=== PATIENT | female | born 1945 | race Caucasian/White ===

== ENCOUNTER 2023-08-31 21:16 | Emergency (ER) | payer OTHER, SELFPAY ==
[2023-08-31] VITALS (21 sets, daily range): BP systolic 174–220; BP diastolic 90–124; PULSE 77–90; RESP 12–21; TEMP 36.4; O2SAT 84–98; BMI 26.3
--- NOTE | 2023-08-31 22:04 | ECG_ITS ---
[facility] Test Date: 2023-08-31 Pat Name: HIRO SEGOVIA Department: Room: - Gender: Female [employer]: : 1945 Requested By: MARGARETTE DUARTE Order Number: [id number] Reading MD: MANINDER HORNER Measurements Intervals [place] Rate: 78 P: 56 UT: 158 QRS: 5 QRSD: 82 T: 39 QT: 372 QTc: 405 Interpretive Statements 1100 Sinus rhythm 5222 Moderate voltage criteria for LVH, may be normal variant 9130 borderline ECG No previous ECG available for comparison Electronically Signed On 09-01-2023 6:44:25 EST by MANINDER HORNER
--- NOTE | 2023-08-31 22:18 | ED_ITS ---
HPI - General Adult General Chief complaint: Headache Stated complaint: Headache Blood pressure high Time Seen by Provider: 08/31/23 22:12 Source: patient Mode of arrival: walk-in History of Present Illness HPI narrative: presents complaining of headache that started tonight. History of HTN. BP elevated tonight. also has history of migraines. States she did have ocular. migraine symptoms earlier tonight but these have resolved. Her headache is at the right bahai and radiates around to the right side of her head. Same location as past migraines. complains of nausea. No extremity weakness or paresthesia. No fever or neck pain Related Data Allergies Allergy/AdvReac Type Severity Reaction Status Date / Time No Known Drug Allergies Allergy Verified 08/31/23 21:32 Review of Systems ROS Status of ROS 10 or more systems reviewed and unremark able except as noted in history and below [facility] Social History Smoking status: Never smoker Exam Constitutional Vital Signs, click to edit/add: Last Vital Signs Temp 97.6 F 08/31/23 21:32 Pulse 87 09/01/23 01:30 Resp 20 09/01/23 01:30 BP 169/93 H 09/01/23 01:42 Pulse Ox 98 08/31/23 22:27 O2 Del Method Room Air 08/31/23 22:45 Common normals: no apparent distress, average body habitus, oriented x3, no limitations, healthy appearing, alert and well nourished [facility] Common normals: normocephalic and head/scalp atraumatic Eye Common normals: PERRL, EOMs intact bilaterally and conjunctivae normal Respiratory Common normals: normal respiratory effort, no retractions and no use of accessory muscles Cardio Common normals: regular rate, regular rhythm, S1 normal heart sound and S2 normal heart sound GI Common normals: Normal to inspection, nondistended, normoactive bowel sounds pre sent, soft to palpation and non-tender Extremity Common normals: normal to inspection and full ROM Neuro Common normals: oriented x3, moves all extremities and no focal motor deficits Psych Appearance: grossly normal Course Vital Signs Vital signs: Vital Signs Temperature 97.6 F 08/31/23 21:32 Pulse Rate 80 08/31/23 21:32 Respiratory Rate 18 08/31/23 21:32 Blood Pressure 220/100 H 08/31/23 21:32 Pulse Oximetry 97 08/31/23 21:32 Oxygen Delivery Method Room Air 08/31/23 21:32 Temperature 97.6 F 08/31/23 21:32 Pulse Rate 87 09/01/23 01:30 Respiratory Rate 20 09/01/23 01:30 Blood Pressure 169/93 H 09/01/23 01:42 Pulse Oximetry 98 08/31/23 22:27 Oxygen Delivery Method Room Air 08/31/23 22:45 Medical Decision Making MDM Narrative Medical decision making narrative: patient presents with hypertension and headache. History of migraines. Did not take her BP medication. Both treated in the ED and she is now feeling better. Discharged home in improved condition Lab Data Labs: Lab Results 08/31/23 Range/Units 22:40 WBC 9.4 (4.0-11.0) 10^3/uL RBC 3.96 L (4.20-5.40) 10^6/uL Hgb 12.6 (12.0-16.0) g/dL Hct 37.6 (36.0-48.0) % MCV 94.9 (81.0-99.0) fL MCH 31.8 (26.7-34.0) pg MCHC 33.5 (29.9-35.2) g/dL RDW 12.9 (11.0-15.0) % Plt Count 273 (150-450) 10^3/uL MPV 9.3 L (9.5-13.5) fL Neut % (Auto) 69.6 (43.0-75.0) % Lymph % (Auto) 17.4 L (20.5-60.0) % [place] % (Auto) 8.4 (1.7-12.0) % Eos % (Auto) 3.7 (0.9-7.0) % Baso % (Auto) 0.5 (0.2-2.0) % Neut # (Auto) 6.5 (1.4-6.5) 10^3/uL Lymph # (Auto) 1.6 (1.2-3.8) 10^3/uL [place] # (Auto) 0.8 (0.3-0.8) 10^3/uL Eos # (Auto) 0.4 (0.0-0.7) 10^3/uL Baso # (Auto) 0.1 (0.0-0.1) 10^3/uL Abs Immat Gran (auto) 0.04 H (0.00-0.03) 10^3/uL Imm/Tot Granulo (auto) 0.4 (0.0-0.5) % ESR 52 H (<=30) mm/hr Sodium 139 (136-145) mmol/L Potassium 3.5 (3.5-5.1) mmol/L Chloride 103 (98-107) mmol/L Carbon Dioxide 23.3 (21.0-32.0) mmol/L Anion Gap 16.2 BUN 16.0 (7.0-18.0) mg/dL Creatinine 0.79 (0.55-1.02) mg/dL Est GFR ( Amer) >60 (>=60) Est GFR (Non-Af Amer) >60 (>=60) BUN/Creatinine Ratio 20.3 Glucose 162 H (74-106) mg/dL Calcium 9.2 (8.5-10.1) mg/dL Discharge Plan Discharge Chief Complaint: Headache Clinical Impression: Hypertensive urgency, Migraine Patient Disposition: Home, Self-Care Instructions: Migraine Headache (ED), Hypertensive Crisis (ED) Additional Instructions: take your regular blood pressure medication when you get home. Follow up with your doctor in the next 1-2 days Stand Alone Forms: Portal Instructions Referrals: MARGARETTE DUARTE [Primary Care Provider] - 1 week
[2023-08-31] MEDS: CLONIDINE HCL 0.1 MG TABLET 0.100000000000000006 MG PO (22:46)
[2023-08-31] MEDS: METOCLOPRAMIDE HCL 10 MG/2 ML VIAL IVP (22:47)
[2023-08-31] MEDS: MAGNESIUM SULFATE IN WATER 2 GM/50 ML PREMIX IV (22:47)
[2023-08-31] MEDS: METHYLPREDNISOLONE SOD SUCC PF 125 MG/2 ML VIAL IVP (22:47)
[2023-08-31 22:52] LABS: Basophils Absolute Auto 0.1 10^3/uL (0.0-0.1); Basophils Percent Auto 0.5 % (0.2-2.0); Eosinophils Absolute Auto 0.4 10^3/uL (0.0-0.7); Eosinophils Percent Auto 3.7 % (0.9-7.0); Hematocrit 37.6 % (36.0-48.0); Hemoglobin 12.6 g/dL (12.0-16.0); Immature Granulocytes Abs Auto 0.04 10^3/uL (0.00-0.03); Immature Granulocytes Pct Auto 0.4 % (0.0-0.5); Lymphocytes Absolute Auto 1.6 10^3/uL (1.2-3.8); Lymphocytes Percent Auto 17.4 % (20.5-60.0); Mean Corpuscular HGB Conc 33.5 g/dL (29.9-35.2); Mean Corpuscular Hemoglobin 31.8 pg (26.7-34.0); Mean Corpuscular Volume 94.9 fL (81.0-99.0); Mean Platelet Volume 9.3 fL (9.5-13.5); Monocytes Absolute Auto 0.8 10^3/uL (0.3-0.8); Monocytes Percent Auto 8.4 % (1.7-12.0); Neutrophils Absolute Auto 6.5 10^3/uL (1.4-6.5); Neutrophils Percent Auto 69.6 % (43.0-75.0); Platelet Count 273 10^3/uL (150-450); Red Blood Count 3.96 10^6/uL (4.20-5.40); Red Cell Distribution Width 12.9 % (11.0-15.0); White Blood Count 9.4 10^3/uL (4.0-11.0)
[2023-08-31 23:03] LABS: Anion Gap 16.2; BUN Creatinine Ratio 20.3; Calcium 9.2 mg/dL (8.5-10.1); Carbon Dioxide 23.3 mmol/L (21.0-32.0); Chloride 103 mmol/L (98-107); Estimated GFR (African America >60 (>=60); Estimated GFR (Non-African Ame >60 (>=60); Glucose 162 mg/dL (74-106); Potassium 3.5 mmol/L (3.5-5.1); Sodium 139 mmol/L (136-145)
[2023-08-31 23:38] LABS: Erythrocyte Sedimentation Rate 52 mm/hr (<=30)
[2023-09-01] VITALS (16 sets, daily range): BP systolic 168–188; BP diastolic 81–102; PULSE 82–91; RESP 10–23
[2023-09-01] MEDS: CLONIDINE HCL 0.1 MG TABLET 0.100000000000000006 MG PO (00:25)
--- NOTE | 2023-09-01 02:06 | ED.GENADUL1 ---
HPI - General Adult General Chief complaint: Headache Stated complaint: Headache Blood pressure high Time Seen by Provider: 08/31/23 22:12 Source: patient Mode of arrival: walk-in Related Data Allergies Allergy/AdvReac Type Severity Reaction Status Date / Time No Known Drug Allergies Allergy Verified 08/31/23 21:32 PFSH PFS Social History Smoking status: Never smoker Exam Constitutional Vital Signs, click to edit/add: Last Vital Signs Temp 97.6 F 08/31/23 21:32 Pulse 87 09/01/23 01:30 Resp 20 09/01/23 01:30 BP 169/93 H 09/01/23 01:42 Pulse Ox 98 08/31/23 22:27 O2 Del Method Room Air 08/31/23 22:45 Course Vital Signs Vital signs: Vital Signs Temperature 97.6 F 08/31/23 21:32 Pulse Rate 80 08/31/23 21:32 Respiratory Rate 18 08/31/23 21:32 Blood Pressure 220/100 H 08/31/23 21:32 Pulse Oximetry 97 08/31/23 21:32 Oxygen Delivery Method Room Air 08/31/23 21:32 Temperature 97.6 F 08/31/23 21:32 Pulse Rate 87 09/01/23 01:30 Respiratory Rate 20 09/01/23 01:30 Blood Pressure 169/93 H 09/01/23 01:42 Pulse Oximetry 98 08/31/23 22:27 Oxygen Delivery Method Room Air 08/31/23 22:45 Medical Decision Making Lab Data Labs: Lab Results 08/31/23 Range/Units 22:40 WBC 9.4 (4.0-11.0) 10^3/uL RBC 3.96 L (4.20-5.40) 10^6/uL Hgb 12.6 (12.0-16.0) g/dL Hct 37.6 (36.0-48.0) % MCV 94.9 (81.0-99.0) fL MCH 31.8 (26.7-34.0) pg MCHC 33.5 (29.9-35.2) g/dL RDW 12.9 (11.0-15.0) % Plt Count 273 (150-450) 10^3/uL MPV 9.3 L (9.5-13.5) fL Neut % (Auto) 69.6 (43.0-75.0) % Lymph % (Auto) 17.4 L (20.5-60.0) % [place] % (Auto) 8.4 (1.7-12.0) % Eos % (Auto) 3.7 (0.9-7.0) % Baso % (Auto) 0.5 (0.2-2.0) % Neut # (Auto) 6.5 (1.4-6.5) 10^3/uL Lymph # (Auto) 1.6 (1.2-3.8) 10^3/uL [place] # (Auto) 0.8 (0.3-0.8) 10^3/uL Eos # (Auto) 0.4 (0.0-0.7) 10^3/uL Baso # (Auto) 0.1 (0.0-0.1) 10^3/uL Abs Immat Gran (auto) 0.04 H (0.00-0.03) 10^3/uL Imm/Tot Granulo (auto) 0.4 (0.0-0.5) % ESR 52 H (<=30) mm/hr Sodium 139 (136-145) mmol/L Potassium 3.5 (3.5-5.1) mmol/L Chloride 103 (98-107) mmol/L Carbon Dioxide 23.3 (21.0-32.0) mmol/L Anion Gap 16.2 BUN 16.0 (7.0-18.0) mg/dL Creatinine 0.79 (0.55-1.02) mg/dL Est GFR ( Amer) >60 (>=60) Est GFR (Non-Af Amer) >60 (>=60) BUN/Creatinine Ratio 20.3 Glucose 162 H (74-106) mg/dL Calcium 9.2 (8.5-10.1) mg/dL Discharge Plan Discharge Chief Complaint: Headache Clinical Impression: Hypertensive urgency, Migraine Patient Disposition: Home, Self-Care Instructions: Migraine Headache (ED), Hypertensive Crisis (ED) Additional Instructions: take your regular blood pressure medication when you get home. Follow up with your doctor in the next 1-2 days Stand Alone Forms: Portal Instructions Referrals: MARGARETTE DUARTE [Primary Care Provider] - 1 week Discharge Date/Time: 09/01/23 02:09
== END 2023-09-01 02:09 | disposition home or self-care (01) ==
PROVIDERS: Emergency Provider Internal Medicine; PCP Family Medicine
DX: I16.0 Hypertensive urgency (principal); G43.909 Migraine, unspecified, not intractable, without status migrainosus
CPT/HCPCS: 36415; 80048; 85025; 85652; 93005; 96365; 96375; 99284; J2930

== ENCOUNTER 2024-03-27 07:50 | Observation (INO) | payer MEDICARE, SELFPAY ==
[2024-03-27] VITALS (21 sets, daily range): BP systolic 157–228; BP diastolic 78–135; PULSE 88–132; TEMP 36.4; O2SAT 94–97; BMI 26.1; BMI 26.5
--- OUTSIDE RECORDS SUMMARY | 2024-03-27 08:03 | XMS_ITS | CCD ---
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 Name Role Phone BORIS CORTEZ Unavailable Unavailable MARGARETTE DUARTE Unavailable Unavailable Margarette Duarte Unavailable Unavailable DR MARGARETTE DUARTE Consulting Unavailable GERALD, DR PFEIFFER Attending Unavailable DR MARGARETTE DUARTE Admitting Unavailable Margarette Duarte Unavailable Bernarda Watson Unavailable DO Margarette Duarte Primary Care Provider DO Margarette Duarte Attending Provider [phone] DO Margarette Duarte Primary Care Provider DO Margarette Duarte Attending Provider DO Margarette Duarte Primary Care Provider [phone] DO Margarette Duarte Attending Provider DO Margarette Duarte Primary Care Provider DO Margarette Duarte Attending Provider DO Margaretet Duarte Primary Care Provider DENNISE Garrett Attending Provider [phone] Margarette Duarte Primary Care Unavailable Margarette Duarte Attending Unavailable Margarette Duarte Admitting Unavailable Johana Garrett Admitting Unavailable Johana Garrett Attending Unavailable Margarette Duarte Primary Care Unavailable Allergies Allergy Classification Reported Allergen(s) Allergy Type Date of Onset Reaction(s) Facility (1 source) moxifloxacin Drug Allergy 07-13-19 20 [facility] (1 source) Penicillin Drug Allergy 02-20-20 14 [facility] (1 source) Misc-Food; Translations: [Misc-Food] Food allergy (disorder) 07-13-19 20 [facility] (19 sources) moxifloxacin Drug Allergy 11-23-19 24 Unknown, Unknown Reaction [facility] (16 sources) Seafood Propensity to adverse reactions Unknown [facility] Other (6 sources) Penicillins; Translations: [Penicillins] Allergy to substance 09-18-19 Unknown Reaction [facility] (8 sources) Shellfish; Translations: [shellfish derived] Allergy to substance 09-18-19 Unknown Reaction [facility] (1 source) moxifloxacin Drug Allergy 03-20-20 [facility] Medications Current Medications Medication Drug Class(es) Dates Sig (Normalized) Sig (Original) albuterol 0.83 mg/ml inhalation solution (20 sources) beta2-Adrenergic Agonist Start: 11-23-2023 take 3 mL by inhalation every six hours as needed Albuterol Sulfate Active 2.5 MG INHALATION Every 6 hours November 23, 2023 12:00am FreeTextSi ml Inhalation q6 hours prn; Note: Source Status: Takingprn; Provider: Gerald Morrison Start: 06-01-2016 Albuterol Sulf ate (2.5 MG/3ML) 0.083% 3 ml Inhalation q6 hours prn prn May, Active Start: 06-01-2016 Albuterol Sulf ate (2.5 MG/3ML) 0.083% 3 ml Inhalation q6 hours prn prn May, Active Start: 06-01-2016 Start: 10-14-2011 End: 11-23-2023 Albuterol Sulfate (Proair Hf a) 90 mcg/actuation Hfa Aerosol Inhaler Discontinued 90 MCG INHALATION Daily September 17, 2017 12:00am November 23, 2023 2:10pm Start: 10-14-2011 ProAir HFA 108 (90 Base) MCG/ACT 2 inhalations Inhalation every 4 hrs prn Oct, Active Ascorbate Sodium (Vit C)(Bulk) (3 sources) Start: 11-23-2023 Ascorbate Sodi um (Vit C)(Bulk) Active EACH MISCELLANE .daiy November 23, 2023 12:00am betamethasone 1 mg/ml topical cream (13 sources) Corticosteroid Start: 11-23-2023 End: 11-23-2023 Betamethasone Valerate Active APPLIC TOPICAL November 23, 2023 2:28pm 1 application Externally sparingly once a day as directed Start: 09-17-2022 Betamethasone Valerate 0.1 % 1 application Externally sparingly once a day as directed for 90 days Sep, Active Start: 09-17-2022 Betamethasone Valerate 0.1 % 1 application Externally sparingly once a day as directed for 90 days Sep, Active Calcium 600 + D 600-200 MG-UNIT (16 sources) Start: 05-26-2016 take 1 tablet by mouth twice daily as needed Calcium 600 + D 600-200 MG-UNIT 1 tablet Orally bid prn May, Active Start: 05-26-2016 take 1 tablet by jaspreet th twice daily Calcium 600 + D 600-200 MG-UNIT 1 tablet Orally bid May, Not-Taking Start: 05-26-2016 Start: 05-26-2016 take 1 tablet by jaspreet th twice daily Calcium 600 + D 600-200 MG-UNIT 1 tablet Orally bid May, Active cetirizine hydrochloride 10 mg oral tablet (10 sources) Histamine-1 Receptor Antagonist Start: 11-23-2023 take 1 tablet by mouth once daily Cetirizine (Zyrtec) 10 mg tablet Active 10 MG PO Daily November 23, 2023 12:00am ZyrTEC Active clobetasol propionate 0.5 mg/ml topical cream (10 sources) Corticosteroid Start: 11-23-2023 Clobetasol Act christi TOPICAL November 23, 2023 1:56pm Start: 09-16-2017 End: 11-23-2023 Clobetasol Discontinued Duy h 2017 12:00am November 23, 2023 2:10pm Coconut Oil (16 sources) Coconut Oil as d irected Active Emollient Combination No.61 (Coconut Oil Cream) cream (3 sources) Start: 11-23-2023 Emollient Comb ination No.61 (Coconut Oil Cream) cream Active APPLIC TOPICAL November 23, 2023 12:00am fluocinonide 0.0005 mg/mg topical ointment (3 sources) Corticosteroid Start: 11-23-2023 Fluocinonide A ctive APPLIC TOPICAL November 23, 2023 12:00am fluticasone propionate 0.05 mg/actuat metered dose nasal spray (20 sources) Corticosteroid Start: 11-23-2023 Fluticasone Pr opionate Active 2 SPRAY INTRANASAL Daily November 23, 2023 2:27pm Start: 11-23-2023 End: 11-23-2023 take 2 spray(s) nasal route once daily as needed Fluticasone Propionate Discontinued INTRANASAL November 23, 2023 12:00am November 23, 2023 2:27pm FreeTextSig: USE 2 SPRAYS IN EACH NOSTRIL ONCE DAILY NEEDED; Note: Source Status: Refill; Refills: 3; Qty: 48 Gram; Provider: Gerald Morrison Start: 09-17-2017 End: 11-23-2023 take 50 ug by inhalation once daily Fluticasone Propionate Discontinued 50 MCG INHALATION Daily September 17, 2017 12:00am November 23, 2023 1:57pm take 2 spray(s) nasa l route once daily as needed Fluticasone Propionate 50 MCG/ACT USE 2 SPRAYS IN EACH NOSTRIL ONCE DAILY NEEDED for 90 days Active take 2 spray(s) nasa l route once daily as needed Fluticasone Propionate 50 MCG/ACT USE 2 SPRAYS IN EACH NOSTRIL ONCE DAILY NEEDED Active levothyroxine sodium 0.088 mg oral tablet (20 sources) l-Thyroxine Start: 11-26-2023 take 88 ug by mouth once daily in the morning Levothyroxine Active 88 MCG PO Daily November 26, 2023 12:00am take first thing in the morning on an empty stomach, do not eat or drink for 30-45 min after taking Start: 11-23-2023 End: 11-26-2023 take 100 ug by mouth once daily in the morning Levothyroxine Discontinued 100 MCG PO Every morning November 23, 2023 2:25pm November 26, 2023 9:44am Start: 08-23-2023 End: 11-23-2023 take 1 tablet by mouth once daily in the morning Levothyroxine Discontinued 0 .ROUTE .COMPLEX August 23, 2023 11:31am November 23, 2023 2:26pm TAKE 1 TABLET BY MOUTH DAILY IN THE MORNING ON AN EMPTY STOMACH Start: 08-23-2023 End: 08-23-2023 take 1 tablet by mouth once daily in the morning Levothyroxine Discontinued 1 TAB PO Daily before breakfast August 23, 2023 1:00am August 23, 2023 11:31am FreeTextSig: TAKE 1 TABLET DAILY IN THE MORNING ON AN EMPTY STOMACH; Note: Source Status: Taking; Provider: Marco Pittman Start: 08-30-2018 take 1 tablet by jaspreet th once daily in the morning Synthroid 100 MCG 1 tablet on an empty stomach in the morning Orally Once a day Aug, Active Start: 09-17-2017 End: 08-23-2023 take 75 ug by mouth once daily Levothyroxine Discontin ued 75 MCG PO Daily September 17, 2017 12:00am August 23, 2023 11:30am Start: 09-16-2017 End: 09-17-2017 take 1 tablet by mouth once daily Levothyroxine (Synthroid) 88 mcg tablet Discontinued 88 MCG PO Daily September 16, 2017 12:00am September 17, 2017 4:32am Levothyroxine So dium 100 MCG TAKE 1 TABLET DAILY IN THE MORNING ON AN EMPTY STOMACH Active Levothyroxine So dium 112 MCG TAKE 1 TABLET DAILY IN THE MORNING ON AN EMPTY STOMACH for 90 days Active loratadine 10 mg oral tablet (16 sources) Start: 06-06-2019 take 1 tablet by mouth every twenty-four hours Claritin 10 MG 1 tablet Orally Once a day Jun, Active losartan potassium 50 mg oral tablet (20 sources) Angiotensin 2 Receptor Cole Start: 02-28-2024 take 1 tablet by mouth once daily Losartan Active 0 .ROUTE .COMPLEX 90 February 28, 2024 9:57am TAKE 1 TABLET BY MOUTH DAILY Start: 11-23-2023 End: 02-28-2024 take 50 mg by mouth once daily Losartan Discontinued 5 0 MG PO Daily November 23, 2023 12:00am February 28, 2024 9:57am Start: 09-16-2017 End: 11-23-2023 take 100 mg by mouth once daily Losartan Discontinued 100 MG PO Daily September 16, 2017 12:00am November 23, 2023 1:54pm take 1 tablet by jaspreet th every twenty-four hours Losartan Potassium 50 MG 1 tablet by mouth qd for 90 days Active take 0.5 tablet by m outh once daily Losartan Potassium 100 mg 1/2 tablet by mouth qd for 90 days Active Magnesium (10 sources) Start: 11-23-2023 Magnesium Acti ve PO November 23, 2023 12:00am Magnesium Active mecobalamin (3 sources) Start: 11-23-2023 take 5000 ug by mouth once daily Mecobalamin (Vitamin B12) Active 5000 MCG PO Daily November 23, 2023 12:00am meloxicam 7.5 mg oral tablet (1 source) Nonsteroidal Anti-inflammatory Drug Start: 03-20-2024 take 7.5 mg by mouth once daily Meloxicam Active 7.5 MG PO Daily March 20, 2024 12:00am Miacalcin 200 UNIT/ACT (16 sources) Start: 05-26-2016 Miacalcin 200 UNIT/ACT 1 spray in one nostril Nasally once a day, alternating nostrils prn May, Active Start: 05-26-2016 Miacalcin 200 UNIT/ACT 1 spray in one nostril Nasally once a day, alternating nostrils May, Not-Taking Start: 05-26-2016 Miacalcin 200 UNIT/ACT 1 spray in one nostril Nasally once a day, alternating nostrils May, Active Start: 05-26-2016 Start: 05-26-2016 Miacalcin 200 UNIT/ACT 1 spray in one nostril Nasally once a day, alternating nostrils for 90 days May, Active mushroom coffee (3 sources) Start: 11-23-2023 mushroom coffe e Active PO November 23, 2023 12:00am NAC (7 sources) NAC Active Nebulizer/Tubing/Mouthpiece (16 sources) Start: 10-24-2019 Start: 10-24-2019 Nebulizer/Tubi ng/Mouthpiece Oct, Active omega d3 mk-7 (3 sources) Start: 11-23-2023 omega d3 mk-7 Active PO November 23, 2023 12:00am ProAir HFA 108 (90 Base) MCG/ACT (8 sources) Start: 10-14-2011 ProAir HFA 108 (90 Base) MCG/ACT 2 inhalations Inhalation every 4 hrs prn for 90 days Oct, Active Start: 10-14-2011 ProAir HFA 108 (90 Base) MCG/ACT 2 inhalations Inhalation every 4 hrs prn prn Oct, Active Start: 10-14-2011 ProAir HFA 108 (90 Base) MCG/ACT 2 inhalations Inhalation every 4 hrs prn Oct, Active probiotic (16 sources) probiotic as dir ected Active quercetin with bromelain (3 sources) Start: 11-23-2023 quercetin with bromelain Active PO November 23, 2023 12:00am Sodium Ascorbate (7 sources) Sodium Ascorbate Active triamcinolone acetonide 1 mg/ml topical cream (20 sources) Corticosteroid Start: 03-03-2024 Triamcinolone Acetonide Active 1 APPLIC TOPICAL Twice daily 80 March 03, 2024 12:00am apply sparingly to affected area Start: 09-17-2017 End: 11-23-2023 Triamcinolone Acetonide Disc ontinued 0.1 PERCENT TOPICAL Daily September 17, 2017 12:00am November 23, 2023 2:03pm Triamcinolone Ac etonide 0.1 % APPLY 1 APPLICATION SPARINGLY TO AFFECTED AREA TWICE A DAY EXTERNALLY 3- 80 gram tubes/ 90 day supply Not-Taking/PRN Triamcinolone Ac etonide 0.1 % APPLY 1 APPLICATION SPARINGLY TO AFFECTED AREA TWICE A DAY EXTERNALLY 3- 80 gram tubes/ 90 day supply Not-Taking vitamin B12 (7 sources) Vitamin B12 Vitamin B 12 Act christi Zinc (10 sources) Start: 11-23-2023 Zinc Active PO November 23, 2023 12:00am Zinc Active Completed/Discontinued Medications Medication Drug Class(es) Dates Sig (Normalized) Sig (Original) acetaminophen 325 mg / HYDROcodone bitartrate 5 mg oral tablet (7 sources) Opioid Agonist Start: 09-17-2017 End: 11-23-2023 take 5-325 mg by mouth every four to six hours Hydrocodone-Acetami nophen Discontinued 5 - 325 MG PO EVERY 4-6 HOURS September 17, 2017 12:00am November 23, 2023 1:57pm acetylcysteine 600 mg oral capsule (3 sources) Antidote, Mucolytic, Antidote for Acetaminophen Overdose Start: 11-23-2023 End: 03-20-2024 take 1 capsule by mouth once daily Acetylcysteine (Nac) 600 mg capsule Discontinued 600 MG PO Daily November 23, 2023 12:00am March 20, 2024 10:57am amLODIPine 5 mg oral tablet (7 sources) Dihydropyridine Calcium Channel Cole Start: 07-10-2020 take 1 tablet by mouth every twenty-four hours Norvasc 5 MG 1 tablet Orally Once a day Jul, Not-Taking aspirin 81 mg delayed release oral tablet (7 sources) Platelet Aggregation Inhibitor, Nonsteroidal Anti-inflammatory Drug Start: 09-17-2017 End: 11-23-2023 take 81 mg by mouth once daily Aspirin Discontinued 81 MG PO Daily September 17, 2017 12:00am November 23, 2023 1:55pm atorvastatin 20 mg oral tablet (14 sources) HMG-CoA Reductase Inhibitor Start: 09-16-2017 End: 11-23-2023 take 20 mg by mouth once daily Atorvastatin Discontinued 20 MG PO Daily September 16, 2017 12:00am November 23, 2023 1:55pm Betamethasone / Clotrimazole (16 sources) Azole Antifungal, Corticosteroid Start: 02-03-2012 Lotrisone 1-0.05 % 1 application to affected area Externally Twice a day Feb, Not-Taking/PRN Start: 02-03-2012 Lotrisone 1-0. 05 % 1 application to affected area Externally Twice a day Feb, Not-Taking Start: 02-03-2012 Start: 02-03-2012 Lotrisone 1-0. 05 % 1 application to affected area Externally Twice a day Feb, Active docusate sodium 100 mg oral capsule (7 sources) Start: 09-17-2017 End: 11-23-2023 take 1 capsule by mouth once daily Docusate Sodium (Colace) 100 mg Capsule Discontinued 100 GM PO Daily September 17, 2017 12:00am November 23, 2023 1:56pm hyoscyamine sulfate 0.125 mg oral tablet (7 sources) Start: 09-17-2017 End: 11-23-2023 take 0.125 mg by mouth once daily Hyoscyamine Sulfate Discontinued 0.125 MG PO Daily September 17, 2017 12:00am November 23, 2023 1:58pm ivermectin 3 mg oral tablet (11 sources) Antiparasitic, Pediculicide Start: 11-23-2023 End: 03-20-2024 Ivermectin Discontinued 3 MG PO .COMPLEX November 23, 2023 2:29pm March 20, 2024 10:45am 3 mg orally 4 tablets together as one dose Orally may repeat in 7 days; Start: 11-23-2023 End: 11-23-2023 Ivermectin Discontinued 3 MG PO November 23, 2023 2:25pm November 23, 2023 2:30pm 4 tablets together as one dose Orally may repeat in 7 days Start: 03-25-2023 Ivermectin 3 M G 4 tablets together as one dose Orally may repeat in 7 days for 1 days Mar, Active pimecrolimus 10 mg/ml topical cream (20 sources) Calcineurin Inhibitor Immunosuppressant Start: 09-16-2017 End: 11-23-2023 Pimecrolimus (Elidel) 1 % cream Discontinued 1 PERCENT TOPICAL Daily September 16, 2017 12:00am November 23, 2023 1:58pm Start: 05-26-2016 Elidel 1 % 1 a pplication to affected area Externally Twice a day May, Not-Taking/PRN Start: 05-26-2016 Elidel 1 % 1 a pplication to affected area Externally Twice a day May, Not-Taking Start: 05-26-2016 predniSONE 20 mg oral tablet (7 sources) Start: 05-16-2021 take 1 tablet by mouth every twelve hours predniSONE 20 MG 1 tablet Orally bid for 5 day(s) May, Not-Taking salmon calcitonin 200 unt/actuat nasal spray (7 sources) Calcitonin Start: 09-16-2017 End: 11-23-2023 Calcitonin ([place]) Discontinued September 16, 2017 12:00am November 23, 2023 1:55pm Problems Active Problems Problem Classification Problem Date Documented Date Episodic/Chronic Asthma (18 sources) Asthma; Translations: [Unspecified asthma, uncomplicated] Onset: 07-15-2021 Resolved: 07-15-2021 Chronic Cancer of colon (20 sources) History of malignant neoplasm of colon; Translations: [Personal history of other malignant neoplasm of large intestine] Episodic Cardiac dysrhythmias (16 sources) Supraventricular tachycardia; Translations: [Supraventricular tachycardia] Chronic Cardiac dysrhythmias (1 source) Palpitations; Translations: [Palpitations] Onset: 11-25-2017 Episodic Diabetes mellitus without complication (6 sources) Hyperglycemia, unspecified; Translations: [Hyperglycemia] Onset: 03-17-2022 Resolved: 03-17-2022 Episodic Diseases of white blood cells (16 sources) Decreased blood leukocyte number; Translations: [Decreased white blood cell count, unspecified] Chronic Disorders of lipid metabolism (20 sources) Hyperlipidemia; Translations: [Hyperlipidemia, unspecified] Onset: 03-17-2022 Resolved: 03-17-2022 Chronic Essential hypertension (20 sources) Hypertensive disorder; Translations: [Essential (primary) hypertension] Onset: 03-17-2022 Resolved: 03-17-2022 09-17-2017 Chronic Genitourinary symptoms and ill-defined conditions (2 sources) Nocturia Onset: 03-17-2022 Resolved: 03-17-2022 Episodic Intestinal obstruction without hernia (7 sources) Small bowel obstruction; Translations: [Unspecified intestinal obstruction, unspecified as to partial versus complete obstruction] 09-17-2017 Episodic Osteoporosis (16 sources) Osteoporosis; Translations: [Age-related osteoporosis without current pathological fracture] Chronic Other aftercare (2 sources) Other alf (current) drug therapy Onset: 03-17-2022 Resolved: 03-17-2022 Episodic Other and unspecified benign neoplasm (16 sources) History of polyp of colon; Translations: [Personal history of colonic polyps] Episodic Other connective tissue disease (2 sources) Foot pain; Translations: [Pain in left foot] 03-20-2024 Episodic Other connective tissue disease (1 source) Pain in left foot; Translations: [Pain in left foot] Onset: 03-20-2024 Episodic Other diseases of kidney and ureters (7 sources) Hydronephrosis; Translations: [Unspecified hydronephrosis] 09-17-2017 Episodic Other liver diseases (16 sources) Steatosis of liver; Translations: [Fatty (change of) liver, not elsewhere classified] Chronic Other nervous system disorders (16 sources) Paresthesia of upper limb; Translations: [Paresthesia of skin] Episodic Other nutritional; endocrine; and metabolic disorders (1 source) Abnormal weight loss Episodic Other upper respiratory disease (16 sources) Allergic rhinitis; Translations: [Allergic rhinitis, unspecified] Chronic Other upper respiratory disease (1 source) Allergic rhinitis, unspecified Onset: 05-19-2021 Resolved: 05-19-2021 Chronic Brianna-; endo-; and myocarditis; cardiomyopathy (except that caused by tuberculosis or sexually transmitted disease) (16 sources) Cardiomyopathy; Translations: [Cardiomyopathy, unspecified] Chronic Residual codes; unclassified (16 sources) Amnesia; Translations: [Other amnesia] Episodic Sprains and strains (2 sources) Sprain of left foot; Translations: [Unspecified sprain of left foot, initial encounter] 03-20-2024 Episodic Thyroid disorders (20 sources) Hypothyroidism; Translations: [Hypothyroidism, unspecified] Onset: 03-17-2022 Resolved: 03-17-2022 Chronic Unclassified (2 sources) Palpitations / R00.2(ICD-9) Onset: 11-25-2017 Unclassified (1 source) Personal history of other specified conditions / Z87.898(ICD-9) Onset: 11-25-2017 Unclassified (3 sources) CONTACT W/AND (SUSP) EXPOS COVID-19; Translations: [CONTACT W/AND (SUSP) EXPOS COVID-19] Onset: 08-22-2021 Past or Other Problems Problem Classification Problem Date Documented Da te Episodic/Chronic Immunizations and screening for infectious disease (2 sources) Contact with and (suspected) exposure to other viral communicable diseases Onset: 05-16-2021 Resolved: 08-19-2021 Episodic Other nutritional; endocrine; and metabolic disorders (1 source) Abnormal weight gain Onset: 03-17-2022 Resolved: 03-17-2022 Episodic Unclassified (1 source) CONTACT W/AND (SUSP) EXPOS COVID-19; Translations: [CONTACT W/AND (SUSP) EXPOS COVID-19] Onset: 08-21-2021 Viral infection (1 source) COVID-19 Onset: 05-16-2021 Resolved: 05-16-2021 Results Test Name Value Interpretation Reference Range Facility XR foot LT min 3V*on 024 XR foot LT min 3V* [facility] [address] XRay Report Signed Patient: Zeny Segovia MR#: [id number] : 1945 Acct:[id number] Age/Sex: 78 / F ADM Date: 03/20/24 Loc: XDUCLY Room: Type: [facility] Attending Dr: Johana Garrett APRN Copies to: Johana Garrtet APRN Ordering Provider: Johana Garrett APRN Date of Service: 03/20/24 XR/XR foot LT min 3V*: M79.672 - Pain in left foot 3 views left foot plain film COMPARISON:None HISTORY: Pain involving the third fourth and fifth metatarsals. No injury. History of gout ACUTE FINDINGS: None DEGENERATIVE CHANGE: Unremarkable SOFT TISSUE FINDINGS: Unremarkable JOINT EFFUSION: None POSTOP CHANGES: None BONE MINERALIZATION: Adequate XR/XR foot LT min 3V* IMPRESSION: Unremarkable exam Impression dictated by: Sahil Chacon M.D.03/20/2024 11:45 AM Dictation Location: [place] [address] Transcribed By: [facility] 03/20/24 1145 Dictated By: Sahil Chacon DO 03/20/24 1143 Signed By: 03/20/24 1145 Normal [facility] A1C with Estimated Average G kiley 11-16-2023 Glucose [Mass/Vol] 111 mg/dL Normal The Replaced by [facility] Comment on above: Order Comment: MICHAEL RANODLPH Result Comment: PERF ORMED BY: [place] [address] PATHOLOGIST TORPEDO SHOOTER BRYAN CORTEZ M.D. Performed By: #### A 1C WT eA, CMP, TSH3, CBC, T4F, CUU, ADDONUAPLUS, LIPID, T3F #### [facility] [address] [place] [address] [place] Alanine aminotransferase [En zymatic activity/volume] in Serum or PlasmaOrdered By: Margarette Duarte on 11-16-2023 ALT [Catalytic activity/Vol] 19 U/L Normal 7-52 [facility] Comment on above: Order Comment: MICHAEL RANDOLPH Performed By: #### A 1C WT eA, CMP, TSH3, CBC, T4F, CUU, ADDONUAPLUS, LIPID, T3F #### [facility] [address] [place] [id number] [place] Albumin [Mass/volume] in Ser um or Plasma by Bromocresol green (BCG) dye binding methoOrdered By: Margarette Duarte on 11-16-2023 Albumin BCG dye [Mass/Vol] 4.1 g/dL 3.5-5.7 [facility] Alkaline phosphatase [Enzyma tic activity/volume] in Serum or PlasmaOrdered By: Margarette Duarte on 11-16-2023 ALP [Catalytic activity/Vol] 66 U/L Normal 34-104 [facility] Comment on above: Order Comment: FASTI NG. JKW Performed By: #### A 1C WTH eA, CMP, TSH3, CBC, T4F, CUU, ADDONUAPLUS, LIPID, T3F #### [address] Aspartate aminotransferase [ Enzymatic activity/volume] in Serum or PlasmaOrdered By: Margarette Duarte on 11-16-2023 AST [Catalytic activity/Vol] 20 U/L Normal 13-39 [facility] Comment on above: Order Comment: FASTI NG. JKW Performed By: #### A 1C WTH eA, CMP, TSH3, CBC, T4F, CUU, ADDONUAPLUS, LIPID, T3F #### [address] Automated basophil %Ordered By: Margarette Duarte on 11-16-2023 Basophils/100 WBC (Bld) 0.9 % Normal . [facility] Comment on above: Order Comment: FASTI NG. JKW Performed By: #### A 1C WTH eA, CMP, TSH3, CBC, T4F, CUU, ADDONUAPLUS, LIPID, T3F #### [address] Automated basophil countOrde red By: Margarette Duarte on 11-16-2023 Basophils (Bld) [#/Vol] 0.0 10*3/uL Normal 0.0-0.2 [facility] Comment on above: Order Comment: FASTI NG. JKW Result Comment: PERF ORMED BY: [place] [address] PATHOLOGIST TORPEDO SHOOTER BRYAN CORTEZ M.D. Performed By: #### A 1C WTH eA, CMP, TSH3, CBC, T4F, CUU, ADDONUAPLUS, LIPID, T3F #### [address] Automated blood monocyte cou ntOrdered By: Margarette Duarte on 11-16-2023 Monocytes (Bld) [#/Vol] 0.5 10*3/uL Normal 0.0-0.8 [facility] Comment on above: Order Comment: FASTI NG. JKW Performed By: #### A 1C WTH eA, CMP, TSH3, CBC, T4F, CUU, ADDONUAPLUS, LIPID, T3F #### [facility] [address] Automated eosinophil %Ordere d By: Margarette Duarte on 11-16-2023 Eosinophils/100 WBC (Bld) 9.9 % Normal . [facility] Comment on above: Order Comment: FASTI NG. JKW Performed By: #### A 1C WTH eA, CMP, TSH3, CBC, T4F, CUU, ADDONUAPLUS, LIPID, T3F #### [facility] [address] Automated eosinophil countOr dered By: Margarette Duarte on 11-16-2023 Eosinophils (Bld) [#/Vol] 0.5 10*3/uL High 0.0-0.45 [facility] Comment on above: Order Comment: FASTI NG. JKW Performed By: #### A 1C WT eA, CMP, TSH3, CBC, T4F, CUU, ADDONUAPLUS, LIPID, T3F #### [facility] [address] [place] [address] Automated monocyte %Ordered By: aMrgarette Duarte on 11-16-2023 Monocytes/100 WBC (Bld) 10.4 % Normal . [facility] Comment on above: Order Comment: FASTI NG. JKW Performed By: #### A 1C WTH eA, CMP, TSH3, CBC, T4F, CUU, ADDONUAPLUS, LIPID, T3F #### [facility] [address] Automated neutrophil %Ordere d By: Margarette Duarte on 11-16-2023 Neutrophils/100 WBC (Bld) 50.0 % Normal . [facility] Comment on above: Order Comment: FASTI NG. JKW Performed By: #### A 1C WTH eA, CMP, TSH3, CBC, T4F, CUU, ADDONUAPLUS, LIPID, T3F #### [facility] [address] [place] [address] [place] Bacteria [Presence] in Urine by AutomatedOrdered By: Margarette Duarte on 11-16-2023 Bacteria Auto Ql (U) None seen [HPF] None Seen [facility] Bilirubin Test strip Ql (U)O rdered By: Margarette Duarte on 11-16-2023 Bilirubin Ql (U) Negative Negative [facility] Bilirubin.total [Mass/volume ] in Serum or PlasmaOrdered By: Margarette Duarte on 11-16-2023 Bilirubin [Mass/Vol] 0.5 mg/dL Normal 0.3-1.0 [facility] Comment on above: Order Comment: MICHAEL BorgesKW Performed By: #### A 1C WTH eA, CMP, TSH3, CBC, T4F, CUU, ADDONUAPLUS, LIPID, T3F #### [facility] [address] [place] [address] [place] Calcium [Mass/volume] in Ser um or PlasmaOrdered By: Margarette Duarte on 11-16-2023 Calcium [Mass/Vol] 9.2 mg/dL Normal 8.6-10.3 [facility] Comment on above: Order Comment: MICHAEL BorgesKW Performed By: #### A 1C WTH eA, CMP, TSH3, CBC, T4F, CUU, ADDONUAPLUS, LIPID, T3F #### [facility] [address] [place] [id number] [place] Carbon dioxide, total [Moles /volume] in Serum or PlasmaOrdered By: Margarette Duarte on 11-16-2023 CO2 [Moles/Vol] 27.7 mmol/L Normal 21.0-31.0 [facility] Comment on above: Order Comment: MICHAEL MARTINEZ JKW Performed By: #### A 1C WTH eA, CMP, TSH3, CBC, T4F, CUU, ADDONUAPLUS, LIPID, T3F #### [facility] [address] [place] [id number] [place] Chloride [Moles/volume] in S may or PlasmaOrdered By: Margarette Duarte on 11-16-2023 Chloride [Moles/Vol] 110 mmol/L High 98-107 [facility] Comment on above: Order Comment: MICHAEL BorgesKW Performed By: #### A 1C WTH eA, CMP, TSH3, CBC, T4F, CUU, ADDONUAPLUS, LIPID, T3F #### [facility] [address] [place] [id number] [place] Cholesterol [Mass/volume] in Serum or PlasmaOrdered By: Margarette Duarte on 11-16-2023 Cholesterol [Mass/Vol] 246 mg/dL High 140-200 [facility] Comment on above: Chol less than 200 m g/dl low riskChol 201-239 mg/dl borderline riskChol 240 mg/dl and greater high risk Order Comment: MICHAEL LINW Result Comment: Chol less than 200 mg/dl low risk Chol 201-239 mg/dl borderline risk Chol 240 mg/dl and greater high risk Performed By: #### A 1C WTH eA, CMP, TSH3, CBC, T4F, CUU, ADDONUAPLUS, LIPID, T3F #### [facility] [address] [place] [id number] [place] Cholesterol in LDL Calc [Mas s/Vol]Ordered By: Margarette Duarte on 11-16-2023 Cholesterol in LDL [Mass/Vol] 162 mg/dL 0-100 [facility] Comment on above: LDL ATP III CLASSIFI CATIONLDL less than 100 mg/dL OptimalLDL 100-129 mg/dL Near or above optimalLDL 130-159 mg/dL Borderline highLDL 160-189 mg/dL HighLDL greater than 189 mg/dL Very high Cholesterol in VLDL Calc [Ma ss/Vol]Ordered By: Margarette Duarte on 11-16-2023 Cholesterol in VLDL [Mass/Vol] 23 mg/dL [facility] Color of Urine by AutoOrdere d By: Margarette Duarte on 11-16-2023 Color (U) Yellow Normal Yellow [facility] Comment on above: Order Comment: MICHAEL RANDOLPH Name Collection Type:: Clean-Voided Midstream Performed By: #### A 1C WTH eA, CMP, TSH3, CBC, T4F, CUU, ADDONUAPLUS, LIPID, T3F #### [facility] [address] [place] [address] Complete Blood Count Auto Di ffon 11-16-2023 Mean Corpuscular HGB Conc 33.9 g/dL Normal 32.0-35.0 [facility] Comment on above: Order Comment: FASTI NG. JKW Performed By: #### A 1C WTH eA, CMP, TSH3, CBC, T4F, CUU, ADDONUAPLUS, LIPID, T3F #### [facility] [address] [place] [address] NRBC% 0.1 /100{WBC} Normal 0-0.5 [facility] Comment on above: Order Comment: FASTI NG. JKW Performed By: #### A 1C WTH eA, CMP, TSH3, CBC, T4F, CUU, ADDONUAPLUS, LIPID, T3F #### [facility] [address] [place] [address] Comprehensive Metabolic Pane rere 11-16-2023 Albumin [Mass/Vol] 4.1 g/dL Normal 3.5-5.7 The [facility] Comment on above: Order Comment: FASTI NG. JKW Performed By: #### A 1C WTH eA, CMP, TSH3, CBC, T4F, CUU, ADDONUAPLUS, LIPID, T3F #### [facility] [address] [place] [address] GFR/1.73 sq M.predicted MDRD (S/P/Bld) [Vol rate/Area] mL/min/{1.73_m2} Normal [facility] Comment on above: Order Comment: FASTI NG. JKW Performed By: #### A 1C WTH eA, CMP, TSH3, CBC, T4F, CUU, ADDONUAPLUS, LIPID, T3F #### [facility] [address] [place] [address] Creatinine [Mass/volume] in Serum or PlasmaOrdered By: Margarette Duarte on 11-16-2023 Creatinine [Mass/Vol] 0.87 mg/dL Normal 0.60-1.20 [facility] Comment on above: Order Comment: FASTI NG. JKW Performed By: #### A 1C WTH eA, CMP, TSH3, CBC, T4F, CUU, ADDONUAPLUS, LIPID, T3F #### [facility] [address] [place] [address] [place] Dipstick and Microscopicon 0 11-16-2023 Appearance (U) Clear Normal Clear [facility] Comment on above: Order Comment: FASTI NG. JKW Name Collection Type:: Clean-Voided Midstream Performed By: #### A 1C WTH eA, CMP, TSH3, CBC, T4F, CUU, ADDONUAPLUS, LIPID, T3F #### [facility] [address] Bacteria,Urine None Seen Normal None Seen [facility] Comment on above: Order Comment: FASTI NG. JKW Name Collection Type:: Clean-Voided Midstream Performed By: #### A 1C WTH eA, CMP, TSH3, CBC, T4F, CUU, ADDONUAPLUS, LIPID, T3F #### [address] Bilirubin,Urine Negative Normal Negative [facility] Comment on above: Order Comment: FASTI NG. JKW Name Collection Type:: Clean-Voided Midstream Performed By: #### A 1C WTH eA, CMP, TSH3, CBC, T4F, CUU, ADDONUAPLUS, LIPID, T3F #### [address] Glucose Ql (U) Normal Normal Normal [facility] Comment on above: Order Comment: FASTI NG. JKW Name Collection Type:: Clean-Voided Midstream Performed By: #### A 1C WTH eA, CMP, TSH3, CBC, T4F, CUU, ADDONUAPLUS, LIPID, T3F #### [address] Hyaline Casts,Urine None Seen Normal 0-[address] [facility] Comment on above: Order Comment: FASTI NG. JKW Name Collection Type:: Clean-Voided Midstream Result Comment: PERF ORMED BY: [place] [address] PATHOLOGIST TORPEDO SHOOTER BRYAN CORTEZ M.D. Performed By: #### A 1C WTH eA, CMP, TSH3, CBC, T4F, CUU, ADDONUAPLUS, LIPID, T3F #### [address] Ketones Ql (U) Negative Normal Negative [facility] Comment on above: Order Comment: FASTI NG. JKW Name Collection Type:: Clean-Voided Midstream Performed By: #### A 1C WTH eA, CMP, TSH3, CBC, T4F, CUU, ADDONUAPLUS, LIPID, T3F #### [address] Leukocyte esterase Test strip Ql (U) Negative Normal Negative [facility] Comment on above: Order Comment: FASTI NG. JKW Name Collection Type:: Clean-Voided Midstream Performed By: #### A 1C WTH eA, CMP, TSH3, CBC, T4F, CUU, ADDONUAPLUS, LIPID, T3F #### [place] [address] [place] Nitrite,Urine Negative Normal Negative [facility] Comment on above: Order Comment: FASTI NG. JKW Name Collection Type:: Clean-Voided Midstream Performed By: #### A 1C WTH eA, CMP, TSH3, CBC, T4F, CUU, ADDONUAPLUS, LIPID, T3F #### [place] [address] [place] Occult Blood,Urine Negative Normal Negative The [facility] Comment on above: Order Comment: FASTI NG. JKW Name Collection Type:: Clean-Voided Midstream Performed By: #### A 1C WTH eA, CMP, TSH3, CBC, T4F, CUU, ADDONUAPLUS, LIPID, T3F #### [place] [address] [place] Protein,Urine Negative Normal Negative [facility] Comment on above: Order Comment: FASTI NG. JKW Name Collection Type:: Clean-Voided Midstream Performed By: #### A 1C WTH eA, CMP, TSH3, CBC, T4F, CUU, ADDONUAPLUS, LIPID, T3F #### [facility] [address] RBC LM.HPF (Urine sed) [#/Area] 0 /[HPF] Normal 0-4 [facility] Comment on above: Order Comment: FASTI NG. JKW Name Collection Type:: Clean-Voided Midstream Performed By: #### A 1C WTH eA, CMP, TSH3, CBC, T4F, CUU, ADDONUAPLUS, LIPID, T3F #### [facility] [address] Specificy [place],Urine 1.016 Normal 1.001-1.030 [facility] Comment on above: Order Comment: FASTI NG. JKW Name Collection Type:: Clean-Voided Midstream Performed By: #### A 1C WTH eA, CMP, TSH3, CBC, T4F, CUU, ADDONUAPLUS, LIPID, T3F #### [address] Squamous Epithelial Cell,Urine None Seen Normal 0-2 [facility] Comment on above: Order Comment: FASTI NG. JKW Name Collection Type:: Clean-Voided Midstream Performed By: #### A 1C WTH eA, CMP, TSH3, CBC, T4F, CUU, ADDONUAPLUS, LIPID, T3F #### [address] Urobilinogen,Urine Normal Normal Normal The [facility] Comment on above: Order Comment: FASTI NG. JKW Name Collection Type:: Clean-Voided Midstream Performed By: #### A 1C WTH eA, CMP, TSH3, CBC, T4F, CUU, ADDONUAPLUS, LIPID, T3F #### [address] WBC,Urine 1-2 Normal 0-4 [facility] Comment on above: Order Comment: FASTI NG. JKW Name Collection Type:: Clean-Voided Midstream Performed By: #### A 1C WTH eA, CMP, TSH3, CBC, T4F, CUU, ADDONUAPLUS, LIPID, T3F #### [facility] [address] Erythrocyte distribution wid th [Ratio] by Automated countOrdered By: Margarette Duarte on 11-16-2023 Erythrocyte distribution width (RBC) [Ratio] 12.9 % Normal 11.9-15.3 [facility] Comment on above: Order Comment: FASTI NG. JKW Performed By: #### A 1C WTH eA, CMP, TSH3, CBC, T4F, CUU, ADDONUAPLUS, LIPID, T3F #### [facility] [address] Erythrocytes [#/area] in Uri ne sediment by Automated countOrdered By: Margarette Duarte on 11-16-2023 RBC Auto (Urine sed) [#/Area] 0-1 [HPF] 0-4 [facility] Erythrocytes [#/volume] in B lood by Automated countOrdered By: Margarette Duarte on 11-16-2023 RBC (Bld) [#/Vol] 3.99 10*6/uL Normal 3.60-5.00 [facility] Comment on above: Order Comment: FASTI NG. JKW Performed By: #### A 1C WTH eA, CMP, TSH3, CBC, T4F, CUU, ADDONUAPLUS, LIPID, T3F #### [facility] [address] Glucose [Mass/volume] in Ser um or PlasmaOrdered By: Margarette Duarte on 11-16-2023 Glucose [Mass/Vol] 100 mg/dL Normal 70-100 [facility] Comment on above: ADA recommended refe rence rangeRandom Glucose Reference Range is dependent on time and content of last meal. Glucose of more than 200 mg/dL in a nonstressed, ambulatory subject supports the diagnosis of Diabetes Mellitus. Order Comment: FASTI NG. JKW Result Comment: [place] om Glucose Reference Range is dependent on time and content of last meal. Glucose of more than 200 mg/dL in a nonstressed, ambulatory subject supports the diagnosis of Diabetes Mellitus. ADA recommended reference range Performed By: #### A 1C WTH eA, CMP, TSH3, CBC, T4F, CUU, ADDONUAPLUS, LIPID, T3F #### [facility] [address] Glucose mean value [Mass/vol ume] in Blood Estimated from glycated hemoglobinOrdered By: Margarette Duarte on 11-16-2023 Average glucose Estimated from glycated hemoglobin (Bld) [Mass/Vol] 111 mg/dL [facility] Hematocrit [Volume Fraction] of Blood by Automated countOrdered By: Margarette Duarte on 11-16-2023 Hematocrit (Bld) [Volume fraction] 37.0 % Normal 34.0-46.4 [facility] Comment on above: Order Comment: MICHAEL CANTU. JonyKW Performed By: #### A 1C WTH eA, CMP, TSH3, CBC, T4F, CUU, ADDONUAPLUS, LIPID, T3F #### [facility] [address] Hemoglobin A1c percentageOrd ered By: Margarette Duarte on 11-16-2023 HbA1c (Bld) [Mass fraction] 5.5 % Normal 4.3-5.6 [facility] Comment on above: Increased risk for d iabetes: 5.7 - 6.4diabetes: >6.4glycemic control for adults with diabetes: <7.0 Order Comment: FASTI NG. JKW Result Comment: Incr eased risk for diabetes: 5.7 - 6.4 diabetes: >6.4 glycemic control for adults with diabetes: <7.0 Performed By: #### A 1C WTH eA, CMP, TSH3, CBC, T4F, CUU, ADDONUAPLUS, LIPID, T3F #### [facility] [address] Hemoglobin [Mass/volume] in BloodOrdered By: Margarette Duarte on 11-16-2023 Hemoglobin (Bld) [Mass/Vol] 12.6 g/dL Normal 11.8-15.4 [facility] Comment on above: Order Comment: FASTI NG. JKW Performed By: #### A 1C WT eA, CMP, TSH3, CBC, T4F, CUU, ADDONUAPLUS, LIPID, T3F #### [facility] [address] Ketones Auto test strip (U) [Mass/Vol]Ordered By: Margarette Duarte on 11-16-2023 Ketones (U) [Mass/Vol] Negative Negative [facility] - UrinalysisOrder ed By: Margarette Duarte on 11-16-2023 Hyaline casts LM Ql (Urine sed) None seen [LPF] 0-8 [facility] Leukocytes [#/area] in Urine sediment by Automated countOrdered By: Margarette Duarte on 11-16-2023 WBC Auto (Urine sed) [#/Area] 1-2 [HPF] 0-4 [facility] Leukocytes [#/volume] correc dano for nucleated erythrocytes in Blood by Automated counOrdered By: Margarette Duarte on 11-16-2023 WBC corrected for nucl RBC Auto (Bld) [#/Vol] 4.7 10*3/uL 3.8-11.6 [facility] Leukocytes [#/volume] in Blo od by Automated countOrdered By: Margarette Duarte on 11-16-2023 WBC (Bld) [#/Vol] 4.7 10*3/uL Normal 3.8-11.6 [facility] Comment on above: Order Comment: MICHAEL BorgesKW Performed By: #### A 1C WTH eA, CMP, TSH3, CBC, T4F, CUU, ADDONUAPLUS, LIPID, T3F #### [facility] [address] Lipid Panelon 11-16-2023 LDL Cholesterol,Calculated 162 mg/dL High 0-100 [facility] Comment on above: Order Comment: MICHAEL BorgesKW Result Comment: LDL ATP III CLASSIFICATION LDL less than 100 mg/dL Optimal LDL 100-129 mg/dL Near or above optimal LDL 130-159 mg/dL Borderline high LDL 160-189 mg/dL High LDL greater than 189 mg/dL Very high Performed By: #### A 1C WTH eA, CMP, TSH3, CBC, T4F, CUU, ADDONUAPLUS, LIPID, T3F #### [address] Triglyceride w/Reflex 116 mg/dL Normal 0-149 [facility] Comment on above: Order Comment: FASTI NG. JKW Result Comment: TRIG ATP III CLASSIFICATION TRIG less than 150 mg/dL Normal TRIG 150-199 mg/dL Borderline high TRIG 200-500 mg/dL High TRIG greater than 500 mg/dL Very high Standard traceable to the Center for Disease Conrtrol and Prevention (CDC) test method. Performed By: #### A 1C WTH eA, CMP, TSH3, CBC, T4F, CUU, ADDONUAPLUS, LIPID, T3F #### [address] VLDL CHOLESTEROL 23 mg/dL Normal [facility] Comment on above: Order Comment: FASTI NG. JKW Performed By: #### A 1C WTH eA, CMP, TSH3, CBC, T4F, CUU, ADDONUAPLUS, LIPID, T3F #### [address] Lymphocytes [#/volume] in Bl ood by Automated countOrdered By: Margarette Duarte on 11-16-2023 Lymphocytes (Bld) [#/Vol] 1.4 10*3/uL Normal 1.00-4.8 [facility] Comment on above: Order Comment: FASTI NG. JKW Performed By: #### A 1C WTH eA, CMP, TSH3, CBC, T4F, CUU, ADDONUAPLUS, LIPID, T3F #### [address] Lymphocytes/100 leukocytes i n Blood by Automated countOrdered By: Margarette Duarte on 11-16-2023 Lymphocytes/100 WBC (Bld) 28.8 % Normal . [facility] Comment on above: Order Comment: FASTI NG. JKW Performed By: #### A 1C WTH eA, CMP, TSH3, CBC, T4F, CUU, ADDONUAPLUS, LIPID, T3F #### [address] MCH [Entitic mass] by Automa dano countOrdered By: Margarette Duarte on 11-16-2023 MCH (RBC) [Entitic mass] 31.5 pg Normal 24.7-34.3 [facility] Comment on above: Order Comment: FASTI PEPE. JKW Performed By: #### A 1C WTH eA, CMP, TSH3, CBC, T4F, CUU, ADDONUAPLUS, LIPID, T3F #### [facility] [address] MCHC Auto (RBC) [Mass/Vol]Or dered By: Margarette Duarte on 11-16-2023 MCHC (RBC) [Mass/Vol] 33.9 g/dL 32.0-35.0 [facility] MCV [Entitic volume] by Auto mated countOrdered By: Margarette Duarte on 11-16-2023 MCV (RBC) [Entitic vol] 92.7 fL Normal 80-100 [facility] Comment on above: Order Comment: FASTLucius CANTU. JKW Performed By: #### A 1C WT eA, CMP, TSH3, CBC, T4F, CUU, ADDONUAPLUS, LIPID, T3F #### [facility] [address] [place] [address] Neutrophils [#/volume] in Bl ood by Automated countOrdered By: Margarette Duarte on 11-16-2023 Neutrophils (Bld) [#/Vol] 2.4 10*3/uL Normal 1.8-7.7 [facility] Comment on above: Order Comment: FASTI NG. JKW Performed By: #### A 1C WTH eA, CMP, TSH3, CBC, T4F, CUU, ADDONUAPLUS, LIPID, T3F #### [facility] [address] Nitrite Test strip Ql (U)Ord ered By: Margarette Duarte on 11-16-2023 Nitrite Ql (U) Negative Negative [facility] No Panel InformationOrdered By: Margarette Duarte on 11-16-2023 Estimated GFR (CKD-EPI) > 60.0 mL/Min [facility] Creatinine Clearance (Chem N/A [facility] Nucleated erythrocytes [Pres ence] in Blood by Automated countOrdered By: Margarette Duarte on 11-16-2023 Nucleated RBC Auto Ql (Bld) 0.1 /100{WBC} 0-0.5 [facility] Platelet mean volume [Entiti c volume] in Blood by Automated countOrdered By: Margarette Duarte on 11-16-2023 Platelet mean volume (Bld) [Entitic vol] 8.1 fL Normal 6.3-10.7 [facility] Comment on above: Order Comment: FASTI NG. JKW Performed By: #### A 1C WTH eA, CMP, TSH3, CBC, T4F, CUU, ADDONUAPLUS, LIPID, T3F #### [facility] [address] Platelets [#/volume] in Bloo d by Automated countOrdered By: Margarette Duarte on 11-16-2023 Platelets (Bld) [#/Vol] 247 10*3/uL Normal 150-450 [facility] Comment on above: Order Comment: FASTI NG. JKW Performed By: #### A 1C WTH eA, CMP, TSH3, CBC, T4F, CUU, ADDONUAPLUS, LIPID, T3F #### [facility] [address] Potassium [Moles/volume] in Serum or PlasmaOrdered By: Margarette Duarte on 11-16-2023 Potassium [Moles/Vol] 4.3 mmol/L Normal 3.5-5.1 [facility] Comment on above: Order Comment: FASTI NG. JKW Performed By: #### A 1C WTH eA, CMP, TSH3, CBC, T4F, CUU, ADDONUAPLUS, LIPID, T3F #### [facility] [address] Protein Auto test strip (U) [Mass/Vol]Ordered By: Margarette Duarte on 11-16-2023 Protein (U) [Mass/Vol] Negative Negative [facility] Protein [Mass/volume] in Ser um or PlasmaOrdered By: Margarette Duarte on 11-16-2023 Protein [Mass/Vol] 6.6 g/dL Normal 6.4-8.9 [facility] Comment on above: Order Comment: FASTI NG. JKW Performed By: #### A 1C WTH eA, CMP, TSH3, CBC, T4F, CUU, ADDONUAPLUS, LIPID, T3F #### [facility] [address] Serum globulin measurement b y calculation (mass/volume)Ordered By: Margarette Duarte on 11-16-2023 Globulin (S) [Mass/Vol] 2.5 g/dL Normal [facility] Comment on above: Order Comment: FASTI NG. JKW Performed By: #### A 1C WTH eA, CMP, TSH3, CBC, T4F, CUU, ADDONUAPLUS, LIPID, T3F #### [address] Serum or plasma albumin/glob ulin mass ratioOrdered By: Margarette Duarte on 11-16-2023 Albumin/Globulin [Mass ratio] 1.6 {ratio} Normal [facility] Comment on above: Order Comment: FASTI NG. JKW Performed By: #### A 1C WTH eA, CMP, TSH3, CBC, T4F, CUU, ADDONUAPLUS, LIPID, T3F #### [address] Serum or plasma anion gap de terminationOrdered By: Margarette Duarte on 11-16-2023 Anion gap [Moles/Vol] 2.6 mmol/L Low 6.0-15.0 [facility] Comment on above: Order Comment: FASTI NG. JKW Performed By: #### A 1C WTH eA, CMP, TSH3, CBC, T4F, CUU, ADDONUAPLUS, LIPID, T3F #### [address] Serum or plasma high density lipoprotein (HDL) cholesterol measurementOrdered By: Margarette Duarte on 11-16-2023 Cholesterol in HDL [Mass/Vol] 61 mg/dL Normal 23-92 [facility] Comment on above: HDL CHOL ATP-III CLA SSIFICATION Cardiovascular RiskHDL > or equal to 60 mg/dL LOWHDL < 40 mg/dL HIGH Order Comment: MICHAEL CANTU. JKW Result Comment: HDL CHOL ATP-III CLASSIFICATION Cardiovascular Risk HDL > or equal to 60 mg/dL LOW HDL < 40 mg/dL HIGH Performed By: #### A 1C WTH eA, CMP, TSH3, CBC, T4F, CUU, ADDONUAPLUS, LIPID, T3F #### [facility] [address] Serum or plasma total choles terol/high density lipoprotein (HDL) cholesterol mass ratOrdered By: Margarette Duarte on 11-16-2023 Cholesterol.total/Ora sterol in HDL [Mass ratio] 4.0 {ratio} Normal <5.0 [facility] Comment on above: Order Comment: MICHAEL MARTINEZ JKW Performed By: #### A 1C WT eA, CMP, TSH3, CBC, T4F, CUU, ADDONUAPLUS, LIPID, T3F #### [address] Sodium [Moles/volume] in Ser um or PlasmaOrdered By: Margarette Duarte on 11-16-2023 Sodium [Moles/Vol] 136 mmol/L Normal 136-145 [facility] Comment on above: Order Comment: MICHAEL MARTINEZ JKW Performed By: #### A 1C WTH eA, CMP, TSH3, CBC, T4F, CUU, ADDONUAPLUS, LIPID, T3F #### [address] Specific gravity Auto test s trip (U) [Rel density]Ordered By: Margarette Duarte on 11-16-2023 Specific gravity (U) [Rel density] 1.016 1.001-1.030 [facility] Squamous epithelial cells de tection in urine sediment by light microscopyOrdered By: Margarette Duarte on 11-16-2023 Epithelial cells.squamous LM Ql (Urine sed) None seen [HPF] 0-2 [facility] Thyrotropin [Units/volume] i n Serum or PlasmaOrdered By: Margarette Duarte on 11-16-2023 TSH Qn 0.23 m[IU]/L Low 0.45-5.33 [facility] Comment on above: Order Comment: MICHAEL BorgesKW Result Comment: PERF ORMED BY: [place] [address] PATHOLOGIST TORPEDO SHOOTER BRYAN CORTEZ M.D. Performed By: #### A 1C WTH eA, CMP, TSH3, CBC, T4F, CUU, ADDONUAPLUS, LIPID, T3F #### [address] Thyroxine (T4) free [Mass/vo lume] in Serum or PlasmaOrdered By: Margarette Duarte on 11-16-2023 Free T4 [Mass/Vol] 1.10 ng/dL Normal 0.61-1.12 [facility] Comment on above: Order Comment: MICHAEL BorgesKW Performed By: #### A 1C WTH eA, CMP, TSH3, CBC, T4F, CUU, ADDONUAPLUS, LIPID, T3F #### [address] Triglyceride [Mass/volume] i n Serum or PlasmaOrdered By: Margarette Duarte on 11-16-2023 Triglyceride [Mass/Vol] 116 mg/dL 0-149 [facility] Comment on above: TRIG ATP III CLASSIF ICATIONTRIG less than 150 mg/dL NormalTRIG 150-199 mg/dL Borderline highTRIG 200-500 mg/dL High TRIG greater than 500 mg/dL Very highStandard traceable to the Center for Disease Conrtrol and Prevention (CDC) test method. Triiodothyronine (T3) Freeon 11-16-2023 Triiodothyronine (T3) Free 2.94 pg/mL Normal 2.50-3.90 [facility] [facility] Comment on above: Order Comment: MICHAEL BorgesKW Result Comment: PERF ORMED BY: [place] [address] PATHOLOGIST [employer]ORPEDO [employer]OOTER BRYAN CORTEZ M.D. Performed By: #### A 1C WTH eA, CMP, TSH3, CBC, T4F, CUU, ADDONUAPLUS, LIPID, T3F #### [facility] [address] Triiodothyronine (T3) Free [ Mass/volume] in Serum or PlasmaOrdered By: Margarette Duarte on 11-16-2023 Free T3 [Mass/Vol] 2.94 pg/mL 2.50-3.90 [facility] Urea nitrogen [Mass/volume] in Serum or PlasmaOrdered By: Margarette Duarte on 11-16-2023 Urea nitrogen [Mass/Vol] 17 mg/dL Normal 7-25 [facility] Comment on above: Order Comment: FASTI NG. JKW Performed By: #### A 1C WTH eA, CMP, TSH3, CBC, T4F, CUU, ADDONUAPLUS, LIPID, T3F #### [address] Urine Cultureon 11-16-2023 Bacteria identified Cx Nom (U) FASTING. JKW No Growth 2 Days PERFORMED BY: [place] [address] PATHOLOGIST [employer]ER BRYAN CORTEZ M.D. Normal [facility] Comment on above: Performed By: #### A 1C WTH eA, CMP, TSH3, CBC, T4F, CUU, ADDONUAPLUS, LIPID, T3F #### [address] Urine clarity by refractomet ry automatedOrdered By: Margarette Duarte on 11-16-2023 Clarity Refractometry automated (U) Clear Clear [facility] Urine culture routineOrdered By: Margarette Duarte on 11-16-2023 Bacteria identified Cx Nom (U) No Growth 2 Days [facility] Urine glucose measurement by automated test strip (mass/volume)Ordered By: Margarette Duarte on 11-16-2023 Glucose Auto test strip (U) [Mass/Vol] Normal mg/dL Normal [facility] Urine hemoglobin detection b y automated test stripOrdered By: Margarette Duarte on 11-16-2023 Hemoglobin Auto test strip Ql (U) Negative Negative [facility] Urine leukocyte esterase det ection by automated test stripOrdered By: Margarette Duarte on 11-16-2023 Leukocyte esterase Auto test strip Ql (U) Negative Negative [facility] Urine pH measurement by auto mated test stripOrdered By: Margarette Duarte on 11-16-2023 pH (U) 5.5 [pH] Normal 5.0-9.0 [facility] Comment on above: Order Comment: MICHAEL MARTINEZ JBranW Name Collection Type:: Clean-Voided Midstream Performed By: #### A 1C WTH eA, CMP, TSH3, CBC, T4F, CUU, ADDONUAPLUS, LIPID, T3F #### [facility] [address] Urobilinogen Auto test strip (U) [Mass/Vol]Ordered By: Margarette Duarte on 11-16-2023 Urobilinogen (U) [Mass/Vol] Normal mg/dL Normal [facility] Basophils Auto (Bld) [#/Vol] on 08-31-2023 Basophils (Bld) [#/Vol] 0.1 10 3/uL 0.0-0.1 [facility] Basophils/100 WBC Auto (Bld) on 08-31-2023 Basophils/100 WBC (Bld) 0.5 % 0.2-2.0 [facility] Eosinophils/100 WBC Auto (Bl d)on 08-31-2023 Eosinophils/100 WBC (Bld) 3.7 % 0.9-7.0 [facility] Erythrocyte distribution wid th Auto (RBC) [Ratio]on 08-31-2023 Erythrocyte distribution width (RBC) [Ratio] 12.9 % 11.0-15.0 [facility] Estimated glomerular filtrat ion rate (GFR) non- Americanon 08-31-2023 GFR/1.73 sq M.predicted among non-blacks MDRD (S/P/Bld) [Vol rate/Area] mL/min/{1.73_m2} >=60 [facility] Hematocrit Auto (Bld) [Volum e fraction]on 08-31-2023 Hematocrit (Bld) [Volume fraction] 37.6 % 36.0-48.0 [facility] Hemoglobin [Mass/volume] in Bloodon 08-31-2023 Hemoglobin (Bld) [Mass/Vol] 12.6 g/dL 12.0-16.0 [facility] Laboratory - Chemistry and C hemistry - challengeon 08-31-2023 Calcium [Mass/Vol] 9.2 mg/dL 8.5-10.1 [facility] Chloride [Moles/Vol] 103 mmol/L 98-107 [facility] CO2 [Moles/Vol] 23.3 mmol/L 21.0-32.0 [facility] Creatinine [Mass/Vol] 0.79 mg/dL 0.55-1.02 [facility] GFR/1.73 sq M.predicted MDRD (S/P/Bld) [Vol rate/Area] mL/min/{1.73_m2} >=60 [facility] Glucose [Mass/Vol] 162 mg/dL 74-106 [facility] Potassium [Moles/Vol] 3.5 mmol/L 3.5-5.1 [facility] Sodium [Moles/Vol] 139 mmol/L 136-145 [facility] Urea nitrogen [Mass/Vol] 16.0 mg/dL 7.0-18.0 [facility] Urea nitrogen/Creatinine [Mass ratio] 20.3 mg/mg [facility] Laboratory - Hematology and Cell countson 08-31-2023 ESR (Bld) [Velocity] 52 mm/h <=30 [facility] Immature granulocytes/100 WBC (Bld) 0.4 % 0.0-0.5 [facility] Leukocytes [#/volume] correc dano for nucleated erythrocytes in Blood by Automated counon 08-31-2023 WBC corrected for nucl RBC Auto (Bld) [#/Vol] 9.4 10 3/uL 4.0-11.0 [facility] Lymphocytes Auto (Bld) [#/Vo l]on 08-31-2023 Lymphocytes (Bld) [#/Vol] 1.6 10 3/uL 1.2-3.8 [facility] Lymphocytes/100 WBC Auto (Bl d)on 08-31-2023 Lymphocytes/100 WBC (Bld) 17.4 % 20.5-60.0 [facility] MCH Auto (RBC) [Entitic mass ]on 08-31-2023 MCH (RBC) [Entitic mass] 31.8 pg 26.7-34.0 [facility] MCHC Auto (RBC) [Mass/Vol]on 08-31-2023 MCHC (RBC) [Mass/Vol] 33.5 g/dL 29.9-35.2 [facility] MCV Auto (RBC) [Entitic vol] on 08-31-2023 MCV (RBC) [Entitic vol] 94.9 fL 81.0-99.0 [facility] Monocytes Auto (Bld) [#/Vol] on 08-31-2023 Monocytes (Bld) [#/Vol] 0.8 10 3/uL 0.3-0.8 [facility] Monocytes/100 WBC Auto (Bld) on 08-31-2023 Monocytes/100 WBC (Bld) 8.4 % 1.7-12.0 [facility] Neutrophils Auto (Bld) [#/Vo l]on 08-31-2023 Neutrophils (Bld) [#/Vol] 6.5 10 3/uL 1.4-6.5 [facility] Neutrophils/100 WBC Auto (Bl d)on 08-31-2023 Neutrophils/100 WBC (Bld) 69.6 % 43.0-75.0 [facility] No Panel Informationon 08-31 Eosinophils # (Auto) 0.4 10 3/uL 0.0-0.7 [facility] Immature Granulocyte # (Auto) 0.04 10 3/uL 0.00-0.03 [facility] Platelet mean volume Auto (B ld) [Entitic vol]on 08-31-2023 Platelet mean volume (Bld) [Entitic vol] 9.3 fL 9.5-13.5 [facility] Platelets Auto (Bld) [#/Vol] on 08-31-2023 Platelets (Bld) [#/Vol] 273 10 3/uL 150-450 [facility] RBC Auto (Bld) [#/Vol]on RBC (Bld) [#/Vol] 3.96 10 6/uL 4.20-5.40 [facility] Serum or plasma anion gap de terminationon 08-31-2023 Anion gap [Moles/Vol] 16.2 mmol/L [facility] Alanine aminotransferase [En zymatic activity/volume] in Serum or PlasmaOrdered By: Margarette Duarte on 03-22-2023 ALT [Catalytic activity/Vol] 25 U/L 7-52 [facility] Albumin [Mass/volume] in Ser um or Plasma by Bromocresol green (BCG) dye binding methoOrdered By: Margarette Duarte on 03-22-2023 Albumin BCG dye [Mass/Vol] 4.3 g/dL 3.5-5.7 [facility] Alkaline phosphatase [Enzyma tic activity/volume] in Serum or PlasmaOrdered By: Margarette Duarte on 03-22-2023 ALP [Catalytic activity/Vol] 94 U/L 34-104 [facility] Aspartate aminotransferase [ Enzymatic activity/volume] in Serum or PlasmaOrdered By: Margarette Duarte on 03-22-2023 AST [Catalytic activity/Vol] 23 U/L 13-39 [facility] Basophils Auto (Bld) [#/Vol] Ordered By: Margarette Duarte on 03-22-2023 Basophils (Bld) [#/Vol] 0.0 10*3/uL 0.0-0.2 [facility] Basophils/100 WBC Auto (Bld) Ordered By: Margarette Duarte on 03-22-2023 Basophils/100 WBC (Bld) 0.7 % . [facility] Bilirubin.total [Mass/volume ] in Serum or PlasmaOrdered By: Margarette Duarte on 03-22-2023 Bilirubin [Mass/Vol] 0.5 mg/dL 0.3-1.0 [facility] Calcium [Mass/volume] in Ser um or PlasmaOrdered By: Margarette Duarte on 03-22-2023 Calcium [Mass/Vol] 9.6 mg/dL 8.6-10.3 [facility] Carbon dioxide, total [Moles /volume] in Serum or PlasmaOrdered By: Margarette Duarte on 03-22-2023 CO2 [Moles/Vol] 26.9 mmol/L 21.0-31.0 [facility] Chloride [Moles/volume] in S may or PlasmaOrdered By: Margarette Duarte on 03-22-2023 Chloride [Moles/Vol] 105 mmol/L 98-107 [facility] Cholesterol [Mass/volume] in Serum or PlasmaOrdered By: Margarette Duarte on 03-22-2023 Cholesterol [Mass/Vol] 276 mg/dL 140-200 [facility] Comment on above: Chol less than 200 m g/dl low riskChol 201-239 mg/dl borderline riskChol 240 mg/dl and greater high risk Cholesterol in LDL Calc [Mas s/Vol]Ordered By: Margarette Duarte on 03-22-2023 Cholesterol in LDL [Mass/Vol] 180 mg/dL 0-100 [facility] Comment on above: LDL ATP III CLASSIFI CATIONLDL less than 100 mg/dL OptimalLDL 100-129 mg/dL Near or above optimalLDL 130-159 mg/dL Borderline highLDL 160-189 mg/dL HighLDL greater than 189 mg/dL Very high Cholesterol in VLDL Calc [Ma ss/Vol]Ordered By: Margarette Duarte on 03-22-2023 Cholesterol in VLDL [Mass/Vol] 24 mg/dL [facility] Creatinine [Mass/volume] in Serum or PlasmaOrdered By: Margarette Duarte on 03-22-2023 Creatinine [Mass/Vol] 0.91 mg/dL 0.60-1.20 [facility] Eosinophils Auto (Bld) [#/Vo l]Ordered By: Margarette Duarte on 03-22-2023 Eosinophils (Bld) [#/Vol] 0.2 10*3/uL 0.0-0.45 [facility] Eosinophils/100 WBC Auto (Bl d)Ordered By: Margarette Duarte on 03-22-2023 Eosinophils/100 WBC (Bld) 4.5 % . [facility] Erythrocyte distribution wid th Auto (RBC) [Ratio]Ordered By: Margarette Duarte on 03-22-2023 Erythrocyte distribution width (RBC) [Ratio] 13.4 % 11.9-15.3 [facility] Globulin Calc (S) [Mass/Vol] Ordered By: Margarette Duarte on 03-22-2023 Globulin (S) [Mass/Vol] 2.6 g/dL [facility] Glucose [Mass/volume] in Ser um or PlasmaOrdered By: Margarette Duarte on 03-22-2023 Glucose [Mass/Vol] 100 mg/dL 70-100 [facility] Comment on above: ADA recommended refe rence rangeRandom Glucose Reference Range is dependent on time and content of last meal. Glucose of more than 200 mg/dL in a nonstressed, ambulatory subject supports the diagnosis of Diabetes Mellitus. Glucose mean value [Mass/vol ume] in Blood Estimated from glycated hemoglobinOrdered By: Margarette Duarte on 03-22-2023 Average glucose Estimated from glycated hemoglobin (Bld) [Mass/Vol] 117 mg/dL [facility] Hematocrit Auto (Bld) [Volum e fraction]Ordered By: Margarette Duarte on 03-22-2023 Hematocrit (Bld) [Volume fraction] 38.3 % 34.0-46.4 [facility] Hemoglobin A1c percentageOrd ered By: Margarette Duarte on 03-22-2023 HbA1c (Bld) [Mass fraction] 5.7 % 4.3-5.6 [facility] Comment on above: Increased risk for d iabetes: 5.7 - 6.4diabetes: >6.4glycemic control for adults with diabetes: <7.0 Hemoglobin [Mass/volume] in BloodOrdered By: Margarette Duarte on 03-22-2023 Hemoglobin (Bld) [Mass/Vol] 13.1 g/dL 11.8-15.4 [facility] Leukocytes [#/volume] correc dano for nucleated erythrocytes in Blood by Automated counOrdered By: Margarette Duarte on 03-22-2023 WBC corrected for nucl RBC Auto (Bld) [#/Vol] 3.9 10*3/uL 3.8-11.6 [facility] Lymphocytes Auto (Bld) [#/Vo l]Ordered By: Margarette Duarte on 03-22-2023 Lymphocytes (Bld) [#/Vol] 1.5 10*3/uL 1.00-4.8 [facility] Lymphocytes/100 WBC Auto (Bl d)Ordered By: Margarette Duarte on 03-22-2023 Lymphocytes/100 WBC (Bld) 38.4 % . [facility] MCH Auto (RBC) [Entitic mass ]Ordered By: Margarette Duarte on 03-22-2023 MCH (RBC) [Entitic mass] 32.0 pg 24.7-34.3 [facility] MCHC Auto (RBC) [Mass/Vol]Or dered By: Margarette Duarte on 03-22-2023 MCHC (RBC) [Mass/Vol] 34.2 g/dL 32.0-35.0 [facility] MCV Auto (RBC) [Entitic vol] Ordered By: Margarette Duarte on 03-22-2023 MCV (RBC) [Entitic vol] 93.6 fL 80-100 [facility] Monocytes Auto (Bld) [#/Vol] Ordered By: Margarette Duarte on 03-22-2023 Monocytes (Bld) [#/Vol] 0.4 10*3/uL 0.0-0.8 [facility] Monocytes/100 WBC Auto (Bld) Ordered By: Margarette Duarte on 03-22-2023 Monocytes/100 WBC (Bld) 10.4 % . [facility] Neutrophils Auto (Bld) [#/Vo l]Ordered By: Margarette Duarte on 03-22-2023 Neutrophils (Bld) [#/Vol] 1.8 10*3/uL 1.8-7.7 [facility] Neutrophils/100 WBC Auto (Bl d)Ordered By: Margarette Duarte on 03-22-2023 Neutrophils/100 WBC (Bld) 46.0 % . [facility] No Panel InformationOrdered By: Margarette Duarte on 03-22-2023 Estimated GFR (CKD-EPI) > 60.0 mL/Min [facility] Creatinine Clearance (Chem N/A [facility] Nucleated erythrocytes [Pres ence] in Blood by Automated countOrdered By: Margarette Duarte on 03-22-2023 Nucleated RBC Auto Ql (Bld) 0.3 /100{WBC} 0-0.5 [facility] Platelet mean volume Auto (B ld) [Entitic vol]Ordered By: Margarette Duarte on 03-22-2023 Platelet mean volume (Bld) [Entitic vol] 8.1 fL 6.3-10.7 [facility] Platelets Auto (Bld) [#/Vol] Ordered By: Margarette Duarte on 03-22-2023 Platelets (Bld) [#/Vol] 225 10*3/uL 150-450 [facility] Potassium [Moles/volume] in Serum or PlasmaOrdered By: Margarette Duarte on 03-22-2023 Potassium [Moles/Vol] 4.2 mmol/L 3.5-5.1 [facility] Protein [Mass/volume] in Ser um or PlasmaOrdered By: Margarette Duarte on 03-22-2023 Protein [Mass/Vol] 6.9 g/dL 6.4-8.9 [facility] RBC Auto (Bld) [#/Vol]Ordere d By: Margarette Duarte on 03-22-2023 RBC (Bld) [#/Vol] 4.09 10*6/uL 3.60-5.00 [facility] Serum or plasma albumin/glob ulin mass ratioOrdered By: Margarette Duarte on 03-22-2023 Albumin/Globulin [Mass ratio] 1.7 {ratio} [facility] Serum or plasma anion gap de terminationOrdered By: Margarette Duarte on 03-22-2023 Anion gap [Moles/Vol] 13.3 mmol/L 6.0-15.0 [facility] Serum or plasma high density lipoprotein (HDL) cholesterol measurementOrdered By: Margarette Duarte on 03-22-2023 Cholesterol in HDL [Mass/Vol] 72 mg/dL 23-92 [facility] Comment on above: HDL CHOL ATP-III CLA SSIFICATION Cardiovascular RiskHDL > or equal to 60 mg/dL LOWHDL < 40 mg/dL HIGH Serum or plasma total choles terol/high density lipoprotein (HDL) cholesterol mass ratOrdered By: Margarette Duarte on 03-22-2023 Cholesterol.total/Ora sterol in HDL [Mass ratio] 3.8 {ratio} <5.0 [facility] Sodium [Moles/volume] in Ser um or PlasmaOrdered By: Margarette Duarte on 03-22-2023 Sodium [Moles/Vol] 141 mmol/L 136-145 [facility] Thyrotropin [Units/volume] i n Serum or PlasmaOrdered By: Margarette Duarte on 03-22-2023 TSH Qn 0.51 m[IU]/L 0.45-5.33 [facility] Thyroxine (T4) free [Mass/vo lume] in Serum or PlasmaOrdered By: Margarette Duarte on 03-22-2023 Free T4 [Mass/Vol] 0.98 ng/dL 0.61-1.12 [facility] Triglyceride [Mass/volume] i n Serum or PlasmaOrdered By: Margarette Duarte on 03-22-2023 Triglyceride [Mass/Vol] 122 mg/dL 0-149 [facility] Comment on above: TRIG ATP III CLASSIF ICATIONTRIG less than 150 mg/dL NormalTRIG 150-199 mg/dL Borderline highTRIG 200-500 mg/dL High TRIG greater than 500 mg/dL Very highStandard traceable to the Center for Disease Conrtrol and Prevention (CDC) test method. Triiodothyronine (T3) Free [ Mass/volume] in Serum or PlasmaOrdered By: Margarette Duarte on 03-22-2023 Free T3 [Mass/Vol] 3.18 pg/mL 2.50-3.90 [facility] Urea nitrogen [Mass/volume] in Serum or PlasmaOrdered By: Margarette Durate on 03-22-2023 Urea nitrogen [Mass/Vol] 21 mg/dL 7-25 [facility] WBC Auto (Bld) [#/Vol]Ordere d By: Margarette Duarte on 03-22-2023 WBC (Bld) [#/Vol] 3.9 10*3/uL 3.8-11.6 [facility] Alanine aminotransferase [En zymatic activity/volume] in Serum or PlasmaOrdered By: Margarette Duarte on 09-15-2022 ALT [Catalytic activity/Vol] 21 U/L 7-52 [facility] Albumin [Mass/volume] in Ser um or Plasma by Bromocresol green (BCG) dye binding methoOrdered By: Margarette Duarte on 09-15-2022 Albumin BCG dye [Mass/Vol] 4.4 g/dL 3.5-5.7 [facility] Alkaline phosphatase [Enzyma tic activity/volume] in Serum or PlasmaOrdered By: Margarette Duarte on 09-15-2022 ALP [Catalytic activity/Vol] 81 U/L 34-104 [facility] Aspartate aminotransferase [ Enzymatic activity/volume] in Serum or PlasmaOrdered By: Margarette Duarte on 09-15-2022 AST [Catalytic activity/Vol] 22 U/L 13-39 [facility] Automated erythrocytes count in urine sediment (number/area)Ordered By: Margarette Duarte on 09-15-2022 RBC Auto (Urine sed) [#/Area] 1-2 [HPF] 0-4 [facility] Automated leukocytes count i n urine sediment (number/area)Ordered By: Margarette Duarte on 09-15-2022 WBC Auto (Urine sed) [#/Area] 3-4 [HPF] 0-4 [facility] Basophils Auto (Bld) [#/Vol] Ordered By: Margarette Duarte on 09-15-2022 Basophils (Bld) [#/Vol] 0.0 10*3/uL 0.0-0.2 [facility] Basophils/100 WBC Auto (Bld) Ordered By: Margarette Duarte on 09-15-2022 Basophils/100 WBC (Bld) 0.7 % . [facility] Bilirubin Test strip Ql (U)O rdered By: Margarette Duarte on 09-15-2022 Bilirubin Ql (U) Negative Negative [facility] Bilirubin.total [Mass/volume ] in Serum or PlasmaOrdered By: Margarette Duarte on 09-15-2022 Bilirubin [Mass/Vol] 0.5 mg/dL 0.3-1.0 [facility] Calcium [Mass/volume] in Ser um or PlasmaOrdered By: Margarette Duarte on 09-15-2022 Calcium [Mass/Vol] 9.5 mg/dL 8.6-10.3 [facility] Carbon dioxide, total [Moles /volume] in Serum or PlasmaOrdered By: Margarette Duarte on 09-15-2022 CO2 [Moles/Vol] 29.4 mmol/L 21.0-31.0 [facility] Chloride [Moles/volume] in S may or PlasmaOrdered By: Margarette Duarte on 09-15-2022 Chloride [Moles/Vol] 106 mmol/L 98-107 [facility] Cholesterol [Mass/volume] in Serum or PlasmaOrdered By: Margarette Duarte on 09-15-2022 Cholesterol [Mass/Vol] 262 mg/dL 140-200 [facility] Comment on above: Chol less than 200 m g/dl low riskChol 201-239 mg/dl borderline riskChol 240 mg/dl and greater high risk Cholesterol in LDL Calc [Mas s/Vol]Ordered By: Margarette Duarte on 09-15-2022 Cholesterol in LDL [Mass/Vol] 173 mg/dL 0-100 [facility] Comment on above: LDL ATP III CLASSIFI CATIONLDL less than 100 mg/dL OptimalLDL 100-129 mg/dL Near or above optimalLDL 130-159 mg/dL Borderline highLDL 160-189 mg/dL HighLDL greater than 189 mg/dL Very high Cholesterol in VLDL Calc [Ma ss/Vol]Ordered By: Margarette Duarte on 09-15-2022 Cholesterol in VLDL [Mass/Vol] 15 mg/dL [facility] Color Auto (U)Ordered By: Vivek Duarte on 09-15-2022 Color (U) Yellow Yellow [facility] Creatinine [Mass/volume] in Serum or PlasmaOrdered By: Margarette Duarte on 09-15-2022 Creatinine [Mass/Vol] 0.82 mg/dL 0.60-1.20 [facility] Eosinophils Auto (Bld) [#/Vo l]Ordered By: Margarette Duarte on 09-15-2022 Eosinophils (Bld) [#/Vol] 0.3 10*3/uL 0.0-0.45 [facility] Eosinophils/100 WBC Auto (Bl d)Ordered By: Margarette Duarte on 09-15-2022 Eosinophils/100 WBC (Bld) 8.1 % . [facility] Erythrocyte distribution wid th Auto (RBC) [Ratio]Ordered By: Margarette Duarte on 09-15-2022 Erythrocyte distribution width (RBC) [Ratio] 13.3 % 11.9-15.3 [facility] Globulin Calc (S) [Mass/Vol] Ordered By: Margarette Duarte on 09-15-2022 Globulin (S) [Mass/Vol] 2.5 g/dL [facility] Glucose [Mass/volume] in Ser um or PlasmaOrdered By: Margarette Duarte on 09-15-2022 Glucose [Mass/Vol] 101 mg/dL 74-109 [facility] Comment on above: ADA recommended refe rence rangeRandom Glucose Reference Range is dependent on time and content of last meal. Glucose of more than 200 mg/dL in a nonstressed, ambulatory subject supports the diagnosis of Diabetes Mellitus. Glucose mean value [Mass/vol ume] in Blood Estimated from glycated hemoglobinOrdered By: Margarette Duarte on 09-15-2022 Average glucose Estimated from glycated hemoglobin (Bld) [Mass/Vol] 117 mg/dL [facility] Hematocrit Auto (Bld) [Volum e fraction]Ordered By: Margarette Duarte on 09-15-2022 Hematocrit (Bld) [Volume fraction] 39.0 % 34.0-46.4 [facility] Hemoglobin A1c percentageOrd ered By: Margarette Duarte on 09-15-2022 HbA1c (Bld) [Mass fraction] 5.7 % 4.3-5.6 [facility] Comment on above: Increased risk for d iabetes: 5.7 - 6.4diabetes: >6.4glycemic control for adults with diabetes: <7.0 Hemoglobin [Mass/volume] in BloodOrdered By: Margarette Duarte on 09-15-2022 Hemoglobin (Bld) [Mass/Vol] 13.3 g/dL 11.8-15.4 [facility] Ketones Auto test strip (U) [Mass/Vol]Ordered By: Margarette Duarte on 09-15-2022 Ketones (U) [Mass/Vol] Trace Negative [facility] Laboratory - Chemistry and C hemistry - challengeOrdered By: Margarette Duarte on 09-15-2022 GFR/1.73 sq M.predicted MDRD (S/P/Bld) [Vol rate/Area] mL/min/{1.73_m2} [facility] - UrinalysisOrder ed By: Margarette Duarte on 09-15-2022 Hyaline casts LM Ql (Urine sed) 0-8 [LPF] 0-8 [facility] Leukocytes [#/volume] correc dano for nucleated erythrocytes in Blood by Automated counOrdered By: Margarette Duarte on 09-15-2022 WBC corrected for nucl RBC Auto (Bld) [#/Vol] 4.1 10*3/uL 3.8-11.6 [facility] Lymphocytes Auto (Bld) [#/Vo l]Ordered By: Margarette Duarte on 09-15-2022 Lymphocytes (Bld) [#/Vol] 1.6 10*3/uL 1.00-4.8 [facility] Lymphocytes/100 WBC Auto (Bl d)Ordered By: Margarette Duarte on 09-15-2022 Lymphocytes/100 WBC (Bld) 38.0 % . [facility] MCH Auto (RBC) [Entitic mass ]Ordered By: Margarette Duarte on 09-15-2022 MCH (RBC) [Entitic mass] 31.6 pg 24.7-34.3 [facility] MCHC Auto (RBC) [Mass/Vol]Or dered By: Margarette Duarte on 09-15-2022 MCHC (RBC) [Mass/Vol] 34.2 g/dL 32.0-35.0 [facility] MCV Auto (RBC) [Entitic vol] Ordered By: Margarette Duarte on 09-15-2022 MCV (RBC) [Entitic vol] 92.5 fL 80-100 [facility] Monocytes Auto (Bld) [#/Vol] Ordered By: Margarette Duarte on 09-15-2022 Monocytes (Bld) [#/Vol] 0.5 10*3/uL 0.0-0.8 [facility] Monocytes/100 WBC Auto (Bld) Ordered By: Margarette Duarte on 09-15-2022 Monocytes/100 WBC (Bld) 11.0 % . [facility] Neutrophils Auto (Bld) [#/Vo l]Ordered By: Margarette Duarte on 09-15-2022 Neutrophils (Bld) [#/Vol] 1.8 10*3/uL 1.8-7.7 [facility] Neutrophils/100 WBC Auto (Bl d)Ordered By: Margarette Duarte on 09-15-2022 Neutrophils/100 WBC (Bld) 42.2 % . [facility] Nitrite Test strip Ql (U)Ord ered By: Margarette Duarte on 09-15-2022 Nitrite Ql (U) Negative Negative [facility] No Panel InformationOrdered By: Margarette Duarte on 09-15-2022 Pharmacy Creatinine Clearance (Chem N/A [facility] Nucleated erythrocytes [Pres ence] in Blood by Automated countOrdered By: Margarette Duarte on 09-15-2022 Nucleated RBC Auto Ql (Bld) 0.1 /100{WBC} 0-0.5 [facility] Platelet mean volume Auto (B ld) [Entitic vol]Ordered By: Margarette Duarte on 09-15-2022 Platelet mean volume (Bld) [Entitic vol] 7.8 fL 6.3-10.7 [facility] Platelets Auto (Bld) [#/Vol] Ordered By: Margarette Duarte on 09-15-2022 Platelets (Bld) [#/Vol] 241 10*3/uL 150-450 [facility] Potassium [Moles/volume] in Serum or PlasmaOrdered By: Margarette Duarte on 09-15-2022 Potassium [Moles/Vol] 4.2 mmol/L 3.5-5.1 [facility] Protein Auto test strip (U) [Mass/Vol]Ordered By: Margarette Duarte on 09-15-2022 Protein (U) [Mass/Vol] Trace mg/dL Negative [facility] Protein [Mass/volume] in Ser um or PlasmaOrdered By: Margarette Duarte on 09-15-2022 Protein [Mass/Vol] 6.9 g/dL 6.4-8.9 [facility] [facility] RBC Auto (Bld) [#/Vol]Ordere d By: Margarette Duarte on 09-15-2022 RBC (Bld) [#/Vol] 4.22 10*6/uL 3.60-5.00 [facility] Serum or plasma albumin/glob ulin mass ratioOrdered By: Margarette Duarte on 09-15-2022 Albumin/Globulin [Mass ratio] 1.8 {ratio} [facility] Serum or plasma anion gap de terminationOrdered By: Margarette Duarte on 09-15-2022 Anion gap [Moles/Vol] 9.8 mmol/L 6.0-15.0 [facility] Serum or plasma high density lipoprotein (HDL) cholesterol measurementOrdered By: Margarette Duarte on 09-15-2022 Cholesterol in HDL [Mass/Vol] 73 mg/dL 35-85 [facility] Comment on above: HDL CHOL ATP-III CLA SSIFICATION Cardiovascular RiskHDL > or equal to 60 mg/dL LOWHDL < 40 mg/dL HIGH Serum or plasma total choles terol/high density lipoprotein (HDL) cholesterol mass ratOrdered By: Margarette Duarte on 09-15-2022 Cholesterol.total/Ora sterol in HDL [Mass ratio] 3.6 {ratio} <5.0 [facility] Sodium [Moles/volume] in Ser um or PlasmaOrdered By: Margarette Duarte on 09-15-2022 Sodium [Moles/Vol] 141 mmol/L 136-145 [facility] Specific gravity Auto test s trip (U) [Rel density]Ordered By: Margarette Duarte on 09-15-2022 Specific gravity (U) [Rel density] 1.022 1.001-1.030 [facility] Squamous epithelial cells de tection in urine sediment by light microscopyOrdered By: Margarette Duarte on 09-15-2022 Epithelial cells.squamous LM Ql (Urine sed) 0-1 [HPF] 0-2 [facility] Thyrotropin [Units/volume] i n Serum or PlasmaOrdered By: Margarette Duarte on 09-15-2022 TSH Qn 0.12 m[IU]/L 0.45-5.33 [facility] Thyroxine (T4) free [Mass/vo lume] in Serum or PlasmaOrdered By: Margarette Duarte on 09-15-2022 Free T4 [Mass/Vol] 1.30 ng/dL 0.61-1.12 [facility] Triglyceride [Mass/volume] i n Serum or PlasmaOrdered By: Margarette Duarte on 09-15-2022 Triglyceride [Mass/Vol] 79 mg/dL 0-149 [facility] Comment on above: TRIG ATP III CLASSIF ICATIONTRIG less than 150 mg/dL NormalTRIG 150-199 mg/dL Borderline highTRIG 200-500 mg/dL High TRIG greater than 500 mg/dL Very highStandard traceable to the Center for Disease Conrtrol and Prevention (CDC) test method. Triiodothyronine (T3) Free [ Mass/volume] in Serum or PlasmaOrdered By: Margarette Duarte on 09-15-2022 Free T3 [Mass/Vol] 3.21 pg/mL 2.50-3.90 [facility] Urea nitrogen [Mass/volume] in Serum or PlasmaOrdered By: Margarette Duarte on 09-15-2022 Urea nitrogen [Mass/Vol] 17 mg/dL 7-25 [facility] Urine bacteria detection by automated methodOrdered By: Margarette Duarte on 09-15-2022 Bacteria Auto Ql (U) None seen None Seen [facility] Urine clarity by refractomet ry automatedOrdered By: Margarette Duarte on 09-15-2022 Clarity Refractometry automated (U) Clear Clear [facility] Urine glucose measurement by automated test strip (mass/volume)Ordered By: Margarette Duarte on 09-15-2022 Glucose Auto test strip (U) [Mass/Vol] Normal mg/dL Normal [facility] Urine hemoglobin detection b y automated test stripOrdered By: Margarette Duarte on 09-15-2022 Hemoglobin Auto test strip Ql (U) Negative Negative [facility] Urine leukocyte esterase det ection by automated test stripOrdered By: Margarette Duarte on 09-15-2022 Leukocyte esterase Auto test strip Ql (U) 2+ Negative [facility] Urobilinogen Auto test strip (U) [Mass/Vol]Ordered By: Margarette Duarte on 09-15-2022 Urobilinogen (U) [Mass/Vol] Normal mg/dL Normal [facility] WBC Auto (Bld) [#/Vol]Ordere d By: Margarette Duarte on 09-15-2022 WBC (Bld) [#/Vol] 4.1 10*3/uL 3.8-11.6 [facility] pH Auto test strip (U)Ordere d By: Margarette Duarte on 09-15-2022 pH (U) 6.0 [pH] 5.0-9.0 [facility] Basophils Auto (Bld) [#/Vol] Ordered By: Margarette Duarte on 03-12-2022 Basophils (Bld) [#/Vol] 0.0 10*3/uL 0.0-0.2 [facility] Basophils/100 WBC Auto (Bld) Ordered By: Margarette Duarte on 03-12-2022 Basophils/100 WBC (Bld) 0.9 % . [facility] Blood hemoglobin measurement (mass/volume)Ordered By: Margarette Duarte on 03-12-2022 Hemoglobin (Bld) [Mass/Vol] 13.5 g/dL 11.8-15.4 [facility] Blood leukocytes automated c ount (number/volume)Ordered By: Margarette Duarte on 03-12-2022 WBC (Bld) [#/Vol] 4.3 10*3/uL 4.5-11.0 [facility] Body fluid albumin measureme nt (mass/volume)Ordered By: Margarette Duarte on 03-12-2022 Albumin (Body fld) [Mass/Vol] 4.0 g/dL 3.2-5.5 [facility] Cholesterol [Mass/volume] in Serum or PlasmaOrdered By: Margarette Duarte on 03-12-2022 Cholesterol [Mass/Vol] 323 mg/dL 140-200 [facility] Comment on above: Chol less than 200 m g/dl low risk Chol 201-239 mg/dl borderline risk Chol 240 mg/dl and greater high risk Cholesterol in LDL Calc [Mas s/Vol]Ordered By: Margarette Duarte on 03-12-2022 Cholesterol in LDL [Mass/Vol] 228 mg/dL 0-100 [facility] Comment on above: LDL ATP III CLASSIFI CATION LDL less than 100 mg/dL Optimal LDL 100-129 mg/dL Near or above optimal LDL 130-159 mg/dL Borderline high LDL 160-189 mg/dL High LDL greater than 189 mg/dL Very high Cholesterol in VLDL Calc [Ma ss/Vol]Ordered By: Margarette Duarte on 03-12-2022 Cholesterol in VLDL [Mass/Vol] 18 mg/dL [facility] Creatinine and Glomerular fi ltration rate.predicted panel (S/P/Bld)Ordered By: Margarette Duarte on 03-12-2022 Creatinine [Mass/Vol] 0.90 mg/dL 0.44-1.03 [facility] Eosinophils Auto (Bld) [#/Vo l]Ordered By: Margarette Duarte on 03-12-2022 Eosinophils (Bld) [#/Vol] 0.2 10*3/uL 0.0-0.45 [facility] Eosinophils/100 WBC Auto (Bl d)Ordered By: Margarette Duarte on 03-12-2022 Eosinophils/100 WBC (Bld) 3.8 % . [facility] Erythrocyte distribution wid th Auto (RBC) [Ratio]Ordered By: Margarette Duarte on 03-12-2022 Erythrocyte distribution width (RBC) [Ratio] 13.7 % 11.9-15.3 [facility] Estimated glomerular filtrat ion rate (GFR) non- AmericanOrdered By: Margarette Duarte on 03-12-2022 GFR/1.73 sq M.predicted among non-blacks MDRD (S/P/Bld) [Vol rate/Area] > 60 mL/Min [facility] Globulin Calc (S) [Mass/Vol] Ordered By: Margarette Duarte on 03-12-2022 Globulin (S) [Mass/Vol] 2.8 g/dL [facility] Glucose mean value [Mass/vol ume] in Blood Estimated from glycated hemoglobinOrdered By: Margarette Duarte on 03-12-2022 Average glucose Estimated from glycated hemoglobin (Bld) [Mass/Vol] 114 mg/dL [facility] Hematocrit Auto (Bld) [Volum e fraction]Ordered By: Margarette Duarte on 03-12-2022 Hematocrit (Bld) [Volume fraction] 40.1 % 34.0-46.4 [facility] Hemoglobin A1c percentageOrd ered By: Margarette Duarte on 03-12-2022 HbA1c (Bld) [Mass fraction] 5.6 % 4.3-5.6 [facility] Comment on above: Increased risk for d iabetes: 5.7 - 6.4 diabetes: >6.4 glycemic control for adults with diabetes: <7.0 Laboratory - Hematology and Cell countsOrdered By: Margarette Duarte on 03-12-2022 Nucleated RBC/100 WBC (Bld) [Ratio] 0.1 % 0-0.5 [facility] Lymphocytes Auto (Bld) [#/Vo l]Ordered By: Margarette Duarte on 03-12-2022 Lymphocytes (Bld) [#/Vol] 1.6 10*3/uL 1.00-4.8 [facility] Lymphocytes/100 WBC Auto (Bl d)Ordered By: Margarette Duarte on 03-12-2022 Lymphocytes/100 WBC (Bld) 36.9 % . [facility] MCH Auto (RBC) [Entitic mass ]Ordered By: Margarette Duarte on 03-12-2022 MCH (RBC) [Entitic mass] 32.0 pg 24.7-34.3 [facility] MCHC Auto (RBC) [Mass/Vol]Or dered By: Margarette Duarte on 03-12-2022 MCHC (RBC) [Mass/Vol] 33.6 g/dL 32.0-35.0 [facility] MCV Auto (RBC) [Entitic vol] Ordered By: Margarette Duarte on 03-12-2022 MCV (RBC) [Entitic vol] 95.1 fL 80-100 [facility] Monocytes Auto (Bld) [#/Vol] Ordered By: Margarette Duarte on 03-12-2022 Monocytes (Bld) [#/Vol] 0.4 10*3/uL 0.0-0.8 [facility] Monocytes/100 WBC Auto (Bld) Ordered By: Margarette Duarte on 03-12-2022 Monocytes/100 WBC (Bld) 9.8 % . [facility] Neutrophils Auto (Bld) [#/Vo l]Ordered By: Margarette Duarte on 03-12-2022 Neutrophils (Bld) [#/Vol] 2.1 10*3/uL 1.8-7.7 [facility] Neutrophils/100 WBC Auto (Bl d)Ordered By: Margarette Duarte on 03-12-2022 Neutrophils/100 WBC (Bld) 48.6 % . [facility] No Panel InformationOrdered By: Margarette Duarte on 03-12-2022 Estimated GFR () > 60 mL/Min [facility] Comment on above: GFR estimated refere nce range: According to KDOQI guidelines, <60 ml/min/1.73m2 is sufficient to diagnose a patient with chronic kidney disease. Pharmacy Creatinine Clearance (Chem N/A [facility] Platelet mean volume Auto (B ld) [Entitic vol]Ordered By: Margarette Duarte on 03-12-2022 Platelet mean volume (Bld) [Entitic vol] 7.7 fL 6.3-10.7 [facility] Platelets Auto (Bld) [#/Vol] Ordered By: Margarette Duarte on 03-12-2022 Platelets (Bld) [#/Vol] 291 10*3/uL 150-450 [facility] Protein [Mass/volume] in Ser um or PlasmaOrdered By: Margarette Duarte on 03-12-2022 Protein [Mass/Vol] 6.8 g/dL 6.1-7.9 [facility] RBC Auto (Bld) [#/Vol]Ordere d By: Margarette Duarte on 03-12-2022 RBC (Bld) [#/Vol] 4.21 10*6/uL 3.60-5.00 [facility] Serum or plasma alanine crenshaw otransferase measurement without P-5'-P (enzymatic activiOrdered By: Margarette Duarte on 03-12-2022 ALT No additional P-5'-P [Catalytic activity/Vol] 31 U/L 10-60 [facility] Serum or plasma albumin/glob ulin mass ratioOrdered By: Margarette Duarte on 03-12-2022 Albumin/Globulin [Mass ratio] 1.4 {ratio} [facility] Serum or plasma alkaline stephanie sphatase measurement (enzymatic activity/volume)Ordered By: Margarette Duarte on 03-12-2022 ALP [Catalytic activity/Vol] 83 U/L 32-92 [facility] Serum or plasma anion gap de terminationOrdered By: Margarette Duarte on 03-12-2022 Anion gap [Moles/Vol] 13.7 mmol/L 6.0-15.0 [facility] Serum or plasma aspartate am inotransferase measurement (enzymatic activity/volume)Ordered By: Margarette Duarte on 03-12-2022 AST [Catalytic activity/Vol] 29 U/L 10-42 [facility] Serum or plasma calcium jeannette urement (mass/volume)Ordered By: Margarette Duarte on 03-12-2022 Calcium [Mass/Vol] 9.7 mg/dL 8.2-10.2 [facility] Serum or plasma chloride júnior surement (moles/volume)Ordered By: Margarette Duarte on 03-12-2022 Chloride [Moles/Vol] 103 mmol/L 95-114 [facility] Serum or plasma glucose jeannette urement (mass/volume)Ordered By: Margarette Duarte on 03-12-2022 Glucose [Mass/Vol] 97 mg/dL 70-100 [facility] Comment on above: ADA recommended refe rence range Random Glucose Reference Range is dependent on time and content of last meal. Glucose of more than 200 mg/dL in a nonstressed, ambulatory subject supports the diagnosis of Diabetes Mellitus. Serum or plasma high density lipoprotein (HDL) cholesterol measurementOrdered By: Margarette Duarte on 03-12-2022 Cholesterol in HDL [Mass/Vol] 77 mg/dL 35-85 [facility] Comment on above: HDL CHOL ATP-III CLA SSIFICATION Cardiovascular Risk HDL > or equal to 60 mg/dL LOW HDL < 40 mg/dL HIGH Serum or plasma potassium me asurement (moles/volume)Ordered By: Margarette Duarte on 03-12-2022 Potassium [Moles/Vol] 4.5 mmol/L 3.5-5.1 [facility] Serum or plasma sodium measu rement (moles/volume)Ordered By: Margarette Duarte on 03-12-2022 Sodium [Moles/Vol] 138 mmol/L 136-146 [facility] Serum or plasma total biliru bin measurement (mass/volume)Ordered By: Margarette Duarte on 03-12-2022 Bilirubin [Mass/Vol] 0.8 mg/dL 0.3-1.2 [facility] Serum or plasma total carbon dioxide measurement (moles/volume)Ordered By: Margarette Duarte on 03-12-2022 CO2 [Moles/Vol] 25.8 mmol/L 22.0-30.0 [facility] Serum or plasma total choles terol/high density lipoprotein (HDL) cholesterol mass ratOrdered By: Margarette Duarte on 03-12-2022 Cholesterol.total/Ora sterol in HDL [Mass ratio] 4.2 {ratio} <5.0 [facility] Serum or plasma urea nitroge n measurement (mass/volume)Ordered By: Margarette Duarte on 03-12-2022 Urea nitrogen [Mass/Vol] 16 mg/dL 9-23 [facility] TSH DL <= 0.005 mIU/L QnOrde red By: Margarette Duarte on 03-12-2022 TSH Qn 10.73 m[IU]/L 0.45-5.33 [facility] Thyroxine (T4) free [Mass/vo lume] in Serum or PlasmaOrdered By: Margarette Duarte on 03-12-2022 Free T4 [Mass/Vol] 0.84 ng/dL 0.61-1.12 [facility] Triglyceride [Mass/volume] i n Serum or PlasmaOrdered By: Margarette Duarte on 03-12-2022 Triglyceride [Mass/Vol] 92 mg/dL 35-149 [facility] Comment on above: TRIG ATP III CLASSIF ICATION TRIG less than 150 mg/dL Normal TRIG 150-199 mg/dL Borderline high TRIG 200-500 mg/dL High TRIG greater than 500 mg/dL Very high Standard traceable to the Center for Disease Conrtrol and Prevention (CDC) test method. Triiodothyronine (T3) Free [ Mass/volume] in Serum or PlasmaOrdered By: Margarette Duarte on 03-12-2022 Free T3 [Mass/Vol] 2.88 pg/mL 2.50-3.90 [facility] Covid-19 PCR (CVDTB)on 08-05 SARS-CoV-2 (COVID-19) RNA ELSI+probe Ql (Unsp spec) Not detected Normal NOT DETECTED [facility] Comment on above: Result Comment: This test is not yet approved or cleared by the [place] FDA. When there are no FDA-approved or cleared tests available, and other criteria are met, FDA can make tests available under an emergency access mechanism called an Emergency Use Authorization (EUA). The EUA for this test is supported by the Anaesthesiologist of Health and Human Service's (HHS's) declaration that circumstances exist to justify the emergency use of in vitro diagnostics for the detection and/or diagnosis of the virus that causes COVID-19. This EUA will remain in effect (meaning this test can be used) for the duration of the COVID-19 declaration justifying emergency of IVDs, unless it is terminated or revoked by FDA (after which the test may no longer be used). When diagnostic testing is negative, the possibility of a false negative should be considered in the context of a patient's recent exposures and the presence of clinical signs and symptoms consistent with SARS-CoV-2. Performed By: #### [facility] #### [facility] [address] [address] [address] Ayden WILLIAM Quick Testingon 2020 Result Positive [employer] Other [facility] CARDIAC STRESS/REST (BARBARA CARDIAL PERFUSION/MIBI)on 10-07-2020 [facility] CARDIAC STRESS/REST (MYOCARDIAL PERFUSION/MIBI) Patient Name: ZENY SEGOVIA STUDY: MYOCARDIAL PERFUSION STRESS TEST WITH EXERCISE Performing facility: [facility], [address] [place] [address], [address], [place], [place] [address] Provider: Boris Cortez MD PCP: Dr. Grecia Duarte Supervising provider: Manyn Pantoja MD, [facility] INDICATION: Chest Pain; Difficulty breathing HISTORY: Gender: F; Age: 74 y/o ; Height: 149.86 cm; Weight: 58.4107109 kg. High Cholesterol; Family HX CAD; HTN; Palpitations; Chest Pain; SOB; Denies smoking. COMPARISON: Previous nuclear testing completed at [facility]. ACCESSION NUMBER(S): [id number]; [id number]; [id number] ORDERING CLINICIAN: BORIS CORTEZ TECHNIQUE: ONE DAY protocol. Stress injection: Date:10/07/20, 32.1 mCi of Myoview IV at peak exercise. Rest injection: Date: 10/07/20, 11.5 mCi of Myoview IV at rest. Imaging was performed by gated tomographic technique. STRESS TEST DATA: Resting heart rate was 91 BPM. Resting blood pressure was 130/84 mmHg. The patient exercised using a Nakul exercise protocol. 6:00 minutes exercised. 102 % of MPHR achieved for age. 7.0 METS achieved. Maximum heart rate was 151 BPM. Maximum blood pressure was 170/88 mmHg. DTS 6. TEST TERMINATED DUE TO: Fatigue FINDINGS: STRESS TEST RESULTS: Resting electrocardiogram revealed normal sinus rhythm. The patient had no significant ECG changes with maximal stress. The patient did not have chest pains/symptoms during the procedure. There was a normal recovery phase. There were no significant dysrhythmias. IMAGING RESULTS: Image quality was good. Rest and stress tomographic images were reviewed and revealed normal perfusion without evidence of ischemia, myocardial infarction, or left ventricular dilatation with stress. Overall left ventricular systolic function appeared to be normal without regional wall motion abnormalities. LV ejection fraction was 83 %. TID is 0.69 and is normal. There was no evidence of attenuation artifact. IMPRESSION: Normal exercise Myoview cardiac perfusion stress test. No evidence of ischemia or myocardial infarction by perfusion imaging. Normal left ventricular systolic function, ejection fraction 83%. No exercise provoked significant ischemic ECG changes or chest pain symptoms. When compared to a study from 2005 there has been no significant interval changes. Electronically signed by: MANNY PANTOJA MD Normal [facility] CARDIAC STRESS/REST INJE CTIONon 10-07-2020 [facility] CARDIAC STRESS/REST INJECTION Patient Name: ZENY SEGOVIA STUDY: MYOCARDIAL PERFUSION STRESS TEST WITH EXERCISE Performing facility: [facility], [address] [place] [address], [address], [address] Provider: Boris Cortez MD PCP: Dr. Grecia Duarte Supervising provider: Manny Pantoja MD, [facility] INDICATION: Chest Pain; Difficulty breathing HISTORY: Gender: F; Age: 74 y/o ; Height: 149.86 cm; Weight: 58.0325175 kg. High Cholesterol; Family HX CAD; HTN; Palpitations; Chest Pain; SOB; Denies smoking. COMPARISON: Previous nuclear testing completed at [facility]. ACCESSION NUMBER(S): [id number]; [id number]; [id number] ORDERING CLINICIAN: BORIS CORTEZ TECHNIQUE: ONE DAY protocol. Stress injection: Date:10/07/20, 32.1 mCi of Myoview IV at peak exercise. Rest injection: Date: 10/07/20, 11.5 mCi of Myoview IV at rest. Imaging was performed by gated tomographic technique. STRESS TEST DATA: Resting heart rate was 91 BPM. Resting blood pressure was 130/84 mmHg. The patient exercised using a Nakul exercise protocol. 6:00 minutes exercised. 102 % of MPHR achieved for age. 7.0 METS achieved. Maximum heart rate was 151 BPM. Maximum blood pressure was 170/88 mmHg. DTS 6. TEST TERMINATED DUE TO: Fatigue FINDINGS: STRESS TEST RESULTS: Resting electrocardiogram revealed normal sinus rhythm. The patient had no significant ECG changes with maximal stress. The patient did not have chest pains/symptoms during the procedure. There was a normal recovery phase. There were no significant dysrhythmias. IMAGING RESULTS: Image quality was good. Rest and stress tomographic images were reviewed and revealed normal perfusion without evidence of ischemia, myocardial infarction, or left ventricular dilatation with stress. Overall left ventricular systolic function appeared to be normal without regional wall motion abnormalities. LV ejection fraction was 83 %. TID is 0.69 and is normal. There was no evidence of attenuation artifact. IMPRESSION: Normal exercise Myoview cardiac perfusion stress test. No evidence of ischemia or myocardial infarction by perfusion imaging. Normal left ventricular systolic function, ejection fraction 83%. No exercise provoked significant ischemic ECG changes or chest pain symptoms. When compared to a study from 2005 there has been no significant interval changes. Electronically signed by: MANNY PANTOJA MD [facility] PART 2 STRESS OR REST (N O CHARGE)on 10-07-2020 [facility] PART 2 STRESS OR REST (NO CHARGE) Patient Name: ZENY SEGOVIA STUDY: MYOCARDIAL PERFUSION STRESS TEST WITH EXERCISE Performing facility: [facility], [address] [place] [address], [address], [address] Provider: Boris Cortez MD PCP: Dr. Grecia Duarte Supervising provider: Manny Pantoja MD, [facility] INDICATION: Chest Pain; Difficulty breathing HISTORY: Gender: F; Age: 74 y/o ; Height: 149.86 cm; Weight: 58.7049510 kg. High Cholesterol; Family HX CAD; HTN; Palpitations; Chest Pain; SOB; Denies smoking. COMPARISON: Previous nuclear testing completed at [facility]. ACCESSION NUMBER(S): [id number]; [id number]; [id number] ORDERING CLINICIAN: BORIS CORTEZ TECHNIQUE: ONE DAY protocol. Stress injection: Date:10/07/20, 32.1 mCi of Myoview IV at peak exercise. Rest injection: Date: 10/07/20, 11.5 mCi of Myoview IV at rest. Imaging was performed by gated tomographic technique. STRESS TEST DATA: Resting heart rate was 91 BPM. Resting blood pressure was 130/84 mmHg. The patient exercised using a Nakul exercise protocol. 6:00 minutes exercised. 102 % of MPHR achieved for age. 7.0 METS achieved. Maximum heart rate was 151 BPM. Maximum blood pressure was 170/88 mmHg. DTS 6. TEST TERMINATED DUE TO: Fatigue FINDINGS: STRESS TEST RESULTS: Resting electrocardiogram revealed normal sinus rhythm. The patient had no significant ECG changes with maximal stress. The patient did not have chest pains/symptoms during the procedure. There was a normal recovery phase. There were no significant dysrhythmias. IMAGING RESULTS: Image quality was good. Rest and stress tomographic images were reviewed and revealed normal perfusion without evidence of ischemia, myocardial infarction, or left ventricular dilatation with stress. Overall left ventricular systolic function appeared to be normal without regional wall motion abnormalities. LV ejection fraction was 83 %. TID is 0.69 and is normal. There was no evidence of attenuation artifact. IMPRESSION: Normal exercise Myoview cardiac perfusion stress test. No evidence of ischemia or myocardial infarction by perfusion imaging. Normal left ventricular systolic function, ejection fraction 83%. No exercise provoked significant ischemic ECG changes or chest pain symptoms. When compared to a study from 2005 there has been no significant interval changes. Electronically signed by: MANNY PANTOJA MD Normal [facility] Vital Signs Date Time Vital Sign Value Performing Clinician Facility 03-20-2024 10:52-0400 Body height 151.77 cm DO Margarette Duarte Work Phone: [facility] 03-20-2024 10:52-0400 Body mass index (BMI) [Ratio] 26.2 kg/m2 DO Margarette Duarte Work Phone: [facility] 03-20-2024 10:52-0400 Body temperature 97.9 [degF] DO Margarette Duarte Work Phone: [facility] 03-20-2024 10:52-0400 Body weight 60.32 kg DO Margarette Duarte Work Phone: [facility] 03-20-2024 10:52-0400 Diastolic blood pressure 80 mm[Hg] DO Margarette Duarte Work Phone: [facility] 03-20-2024 10:52-0400 Heart rate 82 /min DO Margarette Duarte Work Phone: [facility] 03-20-2024 10:52-0400 Respiratory rate 18 /min DO Margarette Duarte Work Phone: [facility] 03-20-2024 10:52-0400 SaO2% (BldA) [Mass fraction] 97 % DO Margarette Duarte Work Phone: [facility] 03-20-2024 10:52-0400 Systolic blood pressure 174 mm[Hg] DO Margarette Duarte Work Phone: [facility] 09-16-2022 11:30-0400 Body height 151.77 cm Margarette Gerald Other [facility] [employer] Other 05-16-2021 16:45-0500 Body height 151.77 cm Bernardajethro Watson Other [employer] Other 05-16-2021 16:45-0500 Body temperature 96.6 [degF] Bernarda Shirley Other [employer] Other 05-16-2021 16:45-0500 Respiratory rate 18 /min Bernarda Watson Other [employer] Other 05-16-2021 16:45-0500 SaO2% (BldA) [Mass fraction] 98 % Bernarda Watson Other [employer] [facility] Other Encounters Encounter Date Encounter Type Care Provider Facility Start: 03-20-2024 End: 03-20-2024 ambulatory DO Margarette Duarte Work Phone: [facility] Work Phone: Start: 03-20-2024 End: 03-20-2024 Patient encounter procedure DO Margarette Duarte Work Phone: [facility] Work Phone: Start: 11-26-2023 End: 11-26-2023 ambulatory DO Margarette Duarte Work Phone: [facility] Work Phone: Start: 11-26-2023 End: 11-26-2023 Patient encounter procedure DO Margarette Gerald Work Phone: [facility] [place] Work Phone: Start: 11-16-2023 End: 11-16-2023 Patient encounter procedure DO Marg[facility] Start: 11-16-2023 End: 11-16-2023 ambulatory Margarette Duarte Facility:[facility] Start: 08-31-2023 Non-patient / Non-visit DO Richard mario Duarte Work Phone: [facility] [employer] Work Phone: Start: 08-05-2023 End: 08-05-2023 ambulatory Margarette Duarte Other [facility] Other Start: 08-05-2023 Telephone encounter Margarette Duarte [facility] Start: 03-25-2023 End: 03-25-2023 ambulatory Margarette Duarte Other [facility] Other Start: 03-25-2023 Telephone encounter Margarette Duarte [facility] Family [facility] [place] Start: 03-22-2023 End: 03-22-2023 ambulatory DO Margarette Duarte Work Phone: [facility] Work Phone: Start: 03-22-2023 End: 03-22-2023 Patient encounter procedure DO Margarette Duarte Work Phone: [facility] Start: 10-28-2022 End: 10-28-2022 ambulatory Margarette Duarte Other [facility] Other Start: 10-28-2022 Telephone encounter Margarette Duarte [facility] Start: 09-17-2022 End: 09-17-2022 ambulatory Margarette Duarte Other [facility] Other Start: 09-17-2022 Telephone encounter Margarette Duarte [facility] [place] Start: 09-16-2022 End: 09-16-2022 ambulatory Margarette Duarte Other [facility] Other Start: 09-16-2022 Telephone encounter Margarette Duarte [facility] Start: 09-15-2022 End: 09-15-2022 ambulatory DO Margarette Duarte Work Phone: [facility] [employer] Work Phone: Start: 09-15-2022 End: 09-15-2022 Patient encounter procedure DO Margarette Duarte Work Phone: [facility] Start: 09-10-2022 End: 09-10-2022 ambulatory Margarette Duarte Other [facility] Other Start: 09-10-2022 Encounter for antibo dy response examination Margarette Duarte [facility] [place] Start: 09-10-2022 Telephone encounter Margarette Duarte [facility] Start: 06-01-2022 End: 06-01-2022 ambulatory Margarette Duarte Other [facility] Other Start: 06-01-2022 Telephone encounter Margarette Duarte [facility] Start: 03-25-2022 End: 03-25-2022 Patient encounter procedure DO Margarette Duarte Work Phone: [facility] Start: 03-17-2022 End: 03-17-2022 ambulatory Margarette Duarte Other [facility] Other Start: 03-17-2022 [facility] Start: 03-12-2022 End: 03-12-2022 Patient encounter procedure DO Margarette Duarte Work Phone: [facility] Start: 01-30-2022 End: 01-30-2022 ambulatory Margarette Duarte Other [facility] Other Start: 01-30-2022 Telephone encounter Margarette Duarte [facility] [place] Start: 08-21-2021 End: 08-22-[address] MARGARETTE DUARTE Facility: Start: 08-19-2021 End: 08-19-2021 ambulatory Margarette Duarte Other [facility] Other Start: 08-19-2021 Telephone encounter Margarette Duarte [facility] Start: 07-15-2021 End: 07-15-2021 ambulatory Margarette Duarte Other [facility] Other Start: 07-15-2021 Telephone encounter Margarette Duarte [facility] Start: 07-09-2021 End: 07-09-2021 ambulatory Margarette Duarte Other [facility] Other Start: 07-09-2021 Encounter for antibo dy response examination Margarette Duarte [facility] Start: 07-09-2021 Telephone encounter Margarette Duarte [facility] [place] Start: 05-19-2021 End: 05-19-2021 ambulatory Margarette Duarte Other [facility] Other Start: 05-19-2021 Telephone encounter Margarette Duarte [facility] [place] Start: 05-16-2021 End: 05-16-2021 ambulatory Margarette Duarte Other [facility] Other Start: 05-16-2021 Office outpatient vi sit 15 minutes Bernarda Watson [facility] Start: 05-16-2021 Telephone encounter Margarette Duarte [facility] Start: 11-25-2017 Ambulatory BORIS CORTEZ Faci lity:[id number] Start: 11-25-2017 Ambulatory Margarette Duarte Facility :[id number] Procedures Date Procedure Procedure Detail Performing Clinician Start: 03-20-2024 X-ray of left foot DO Don Duarte Work Phone: Start: 11-16-2023 Urine culture DO Margarette Duarte Work Phone: Plan of Treatment Date Care Activity Detail Author Start: 09-15-2022 Bacteria identified in Urine by Culture [facility] Start: 03-25-2022 [facility] Work Phone: Apolipoprotein B [Ma ss/volume] in Serum or Plasma [facility] Work Phone: Beta lipoprotein sub particle measurement [facility] Work Phone: Cholesterol [Mass/vo lume] in Serum or Plasma [facility] Work Phone: Cholesterol in HDL [ Mass/volume] in Serum or Plasma [facility] Work Phone: Comprehensive metabo lic 2000 panel - Serum or Plasma [facility] Lipoprotein.beta.sub particle.smal l [Moles/volume] in Serum or Plasma [facility] Work Phone: Low density lipoprot ein cholesterol measurement [facility] Work Phone: Organ or system related test [facility] Work Phone: Triglyceride [Mass/v olume] in Serum or Plasma [facility] Work Phone: [facility] Immunizations Immunization Date Immunization Notes Care Provider Aleyda collazo 05-15-2016 influenza, seasonal, injectable DO Margarette Duarte Work Phone: [facility] 05-15-2016 influenza, seasonal, injectable, preservative free Margarette Duarte Other [facility] 04-07-2016 influenza, high dose seasonal, preservative-free DO Margarette Duarte Work Phone: [facility] 04-10-2015 influenza, seasonal, injectable, preservative free DO Margarette Duarte Work Phone: [facility] 04-07-2014 pneumococcal polysaccharide vaccine, 23 valent DO Margarette Duarte Work Phone: [facility] 04-07-2012 influenza, high dose seasonal, preservative-free Margarette Duarte Other [facility] Other 04-07-2012 influenza virus vaccine, unspecified formulation DO Margarette Duarte Work Phone: [facility] Payers Date Payer Category Payer Private Health Insurance [id number] 2023 Private Health Insurance [id number] 2023 Self-pay [id number] 2022 Medicare [id number] 1958 Medicare [id number] 1945 Unknown [id number] Medicare Medicare X [id number] Private Health Insurance [id number] [id number] Unknown [id number] Unknown [id number] Social History Date Type Detail Facility Unknown if ever smoked [facility] Other Sex Assigned At Sex Assigned At Bir th [facility] Other Start: 09-17-2017 End: 11-26-2023 Tobacco smoking status NHIS Never smoked tobacco (finding) [facility] Start: 1945 Sex Assigned At Female F [facility] Clinical Notes 04-07-2011 to 08-05-2023 Note Date & Type Note Facility 08-05-2023 Evaluation note Encounter Date Diagnosis Assessment Notes Aug, Asthma (ICD-10 - J45.909) [facility] Other 09-21-2023 History general Narrative - Reported* Type Description Date Medical History 2009 Mammogram Medical History 2009 Colonoscopy Done Medical History 2005 Stress Test Medical History Dexa Scan 12-10 Repeat in 06-15 Medical History Flu Shot 04-07-11 Medical History Colonoscopy 2010 Dr. Clayton (2 polyps) repeat in 1 year Medical History blockage of uterer - 2014 - DrSm ith Medical History DEXA 11-24-16 repeat in 2 years ( 2017) Surgical History hysterectomy 1998 Surgical History colon ca, 1/3 of colon removed 1976 Surgical History tubal ligation 1979 Surgical History roxana breast implants 1979 Surgical History T & A Surgical History uterine cancer 1998 Surgical History Colonoscopy 2010 Dr. Maggie freitas (2 polyps removed) Surgical History cataract 07/2013 Surgical History Colonoscopy, Dr. Clayton 1 polyp removed 05-18-14 Surgical History [facility] st[facility] - [facility] 03/[facility]/15 Surgical History removed blockage in uterer - [facility] 06/26/15 Surgical History cystoscopy - Irina Stiff 09/21/17 Surgical History wisdom tooth removed 11/22/17 Surgical History heart [facility] 11/25/17 Surgical History colonoscopy - Dr Bland es / needs repeat in 5 years 07/2019 Hospitalization History see surgical history [facility] Other 04-26-2023 Evaluation note* Encounter Date Diagnosis Assessment Notes Treatment Notes Treatment Clinical Notes Oct, Hypertension (ICD-10 - I10) [facility] Other 04-26-2023 History general Narrative - Reported* Type Description Date Medical History 2009 Mammogram Medical History 2009 Colonoscopy Done Medical History 2005 Stress Test Medical History Dexa Scan 12-10 Repeat in 06-15 Medical History Flu Shot 04-07-11 Medical History Colonoscopy 2010 Dr. Clayton (2 polyps) repeat in 1 year Medical History blockage of uterer - 2014 - DrSm ith Medical History DEXA 11-24-16 repeat in 2 years ( 2018) Surgical History hysterectomy 1998 Surgical History colon ca, 1/3 of colon removed 1976 Surgical History tubal ligation 1979 Surgical History roxana breast implants 1979 Surgical History T & A Surgical History uterine cancer 1998 Surgical History Colonoscopy January? 2010 Dr. Maggie freitas (2 polyps removed) Surgical History cataract 07/2013 Surgical History Colonoscopy, Dr. Clayton 1 polyp removed 05-18-14 [facility] History removed blockage in uterer [facility] 06/26/15 Surgical History cystoscopy - Ddr Stiff 09/21/17 Surgical History wisdom tooth removed 11/22/17 Surgical History heart [facility] 11/25/17 Surgical History colonoscopy - Dr Baldo sinclair / needs repeat in 5 years 07/2019 Hospitalization History see surgical history [facility] Other 03-21-2023 History general Narrative - Reported* Type Description Date Medical History 2008 Mammogram Medical History 2009 Colonoscopy Done Medical History 2005 Stress Test Medical History Dexa Scan 12-10 Repeat in 06-15 Medical History Flu Shot 04-07-11 Medical History Colonoscopy 2010 Dr. Clayton (2 polyps) repeat in 1 year Medical [facility] Medical History DEXA 11-25-15 repeat in 2 years ( 2018) Surgical History hysterectomy 1998 Surgical History colon ca, 1/3 of colon removed 1976 Surgical History tubal ligation 1979 Surgical History roxana breast implants 1979 Surgical History T & A Surgical History uterine cancer 1998 Surgical History Colonoscopy January? 2010 Dr. Maggie freitas (2 polyps removed) Surgical History cataract 07/2013 Surgical History Colonoscopy, Dr. Clayton 1 polyp removed 05-18-14 [facility] Surgical History removed blockage in uterer [facility] 06/26/15 Surgical History cystoscopy - Ddr Stiff 09/21/17 Surgical History wisdom tooth removed 11/22/17 Surgical History heart [facility] 11/25/17 Surgical History colonoscopy - Dr Baldo sinclair / needs repeat in 5 years 07/2019 Hospitalization History see surgical [employer] Other 03-15-2023 Evaluation note* Encounter Date Diagnosis Assessment Notes Treatment Notes Treatment Clinical Notes Sep, Hypothyroidism (ICD-10 - E03.9) Discussed thyroid results with patient today. TSH is 0.12. Free T3 is 3.21. Free T4 is 1.30. At this time I would like to decrease her Levothyroxine to 100 MCG daily. Guidance is given on how to take the lower dose. Sep, Hypertension (ICD-10 - I10) She voices that her blood pressure has been running 133/74. She wants to stop the Losartan because she does not feel she needs it. She has lost weight and is down to 125.4 pounds. I did recommend that she cut her dose of Losartan before stopping the dose completely. I asked her to cut this down to 1/2 tablet daily for two weeks and if her readings are still good then she could consider stopping the medicine. She is to keep me posted with how she is doing. Sep, Nocturia (ICD-10 - R35.1) Sep, Hyperlipidemia, unspecified hyperlipidemia type (ICD-10 - E78.5) Discussed the NMR and Apolipoprotein B results from 03-27-22 with her today. She voices that she is not taking the Lipitor anymore. Discussed cholesterol results with her today. Total is 262. HDL is 73. LDL is 173. VLDL is 15. Triglycerides are 79. She is to continue with her exercise and dietary changes. Will continue to monitor. Sep, Encounter for long-term (current) use of medications (ICD-10 - Z79.899) Sep, Hyperglycemia (ICD-10 - R73.9) Discussed blood sugar results with patient today. Glucose is 101. HgA1C is 5.7. She is to watch her intake of carbs and sugars. Stay active. She has lost weight in preparation for a wedding so I expect this will be improved when next checked. She voices that she eats alot of eggs and has been watching her diet to include her intake of carbs and sugars. She and her use the treadmill, they put it in front of their TV so they will use it more. Sep, Weight loss (ICD-10 - R63.4) She is down to 125.4 on her home scale, she voices that she has a wedding this summer she is preparing for. She is encouraged to continue with what she is doing. Sep, Other She would like a refill on above medication. She voices that she alternates between two creams, she can use one for a little bit and then her skin will react to it, so she will switch to something different. She uses this on her hands and arms, she was told not to use this on her face. She voices that she has been doing research and read that you should have your adrenal glands checked before you have your thyroid checked. I did advise her that I am not sure if insurance would cover this. She is going to see if her insurance will cover this and will let me know. If she has a dramatic sudden rise in her blood pressure then it may be able to be checked. She is going to do more research on this. She denies diaphoresis or tachycardia. She refuses a mammogram, voices that she has implants but does not want a mammogram. 10:46 AM - 11:00 AM [facility] Other 03-09-2023 Evaluation note* Encounter Date Diagnosis Assessment Notes Treatment Notes Treatment Clinical Notes Sep, Immunity status testing (ICD-10 - Z01.84) [facility] Other 09-13-2022 Evaluation note* Encounter Date Diagnosis Assessment Notes Treatment Notes Treatment Clinical Notes Mar, Hypertension (ICD-10 - I10) At this time I did recommend that she continue with the medication. Mar, Hypothyroidism (ICD-10 - E03.9) She voices that she is trying to get off of her medications because of the side effects. I did explain to her that there is not typically any side effects associated with Levothyroxine. Her TSH is 10.73. Free T3 is 2.88. Free T4 is 0.84. I explained to her that her dose needs to be increased. She wants to go off her medication which was not recommended. She will feel terrible and will gain weight if she stops the medication. She does ultimately agree to stay on the medication. Guidance is given on how to increase the dose. Side effects/risks/benef its of medication were reviewed. Will repeat lab in three months. Mar, Hyperlipidemia, unspecified hyperlipidemia type (ICD-10 - E78.5) Discussed cholesterol results with patient today. Total is 323. HDL is is 77. LDL is 228. Triglycerides are 92. Her lab was drawn a few weeks after she returned from a cruise (02-20-22 she got off the cruise ship, lab was drawn 03-12-22). I discussed that her LDL is higher than we would like to see. Her VLDL is up from 9 to 18. She is not taking Lipitor, voices that she has not been taking it for at least a year. I do recommend that she take the Lipitor daily to help lower her LDL. She is encouraged to watch her intake of carbs and sugars, stay active as tolerated. I did offer to provide her with an order to evaluate her LDL further, she would have to check with her insurance to see if these tests are affordable or not. If she has these done she can call for the results. Based on these lab results it will help her decide if she should take the Lipitor or not. Mar, Hyperglycemia (ICD-10 - R73.9) Discussed her blood sugar results with her today. Glucose is 97. HgA1C is 5.6 which is at the higher end of normal. She admits she has gained weight, states she just returned from a cruise. I encouraged her to watch her intake of carbs and sugars. Stay active. Mar, Weight gain (ICD-10 - R63.5) Again, she voices that she has gained weight, she recently returned from a cruise. Recommend that she watch her intake of carbs and sugars. Stay active. Mar, Encounter for long-term (current) use of medications (ICD-10 - Z79.899) Mar, Nocturia (ICD-10 - R35.1) Mar, Other 9:25 AM - 9:44 AM [facility] Other 07-29-2022 History general Narrative - Reported* Type Description Date Medical History 2009 Mammogram Medical History 2009 Colonoscopy Done Medical History 2005 Stress Test Medical History Dexa Scan 12-10 Repeat in 06-15 Medical History Flu Shot 04-07-11 Medical History Colonoscopy 2010 Dr. Clayton (2 polyps) repeat in 1 year Medical History blockage of uterer - 2015 - DrSm ith Medical History DEXA 11-25-15 repeat in 2 years ( 2017) Surgical History hysterectomy 1998 Surgical History colon ca, 1/3 of colon removed 1976 Surgical History tubal ligation 1979 Surgical History roxana breast implants 1979 Surgical History T & A Surgical History uterine cancer 1998 Surgical History Colonoscopy January? 2010 Dr. Maggie freitas (2 polyps removed) Surgical History cataract 07/2013 Surgical History Colonoscopy, Dr. Clayton 1 polyp removed 05-18-14 Surgical History [facility] st[facility] - [facility] 03/[facility]/15 Surgical History removed blockage in uterer - [facility] 06/26/15 Surgical History cystoscopy - Ddr Stiff 09/21/17 Surgical History wisdom tooth removed 11/22/17 Surgical History heart [facility] 11/25/17 Surgical History colonoscopy - Dr Bland es / needs repeat in 5 years 07/2019 Hospitalization History see surgical history [facility] Other 02-15-2022 Evaluation note* Encounter Date Diagnosis Assessment Notes Treatment Notes Treatment Clinical Notes Aug, Close exposure to COVID-19 virus (ICD-10 - Z20.828) [facility] Other 01-11-2022 Evaluation note* Encounter Date Diagnosis Assessment Notes Treatment Notes Treatment Clinical Notes Jul, Asthma (ICD-10 - J45.909) [facility] Other 01-05-2022 Evaluation note* Encounter Date Diagnosis Assessment Notes Treatment Notes Treatment Clinical Notes Jul, Immunity status testing (ICD-10 - Z01.84) [facility] Other 11-15-2021 Evaluation note* Encounter Date Diagnosis Assessment Notes Treatment Notes Treatment Clinical Notes May, Allergic rhinitis (ICD-10 - J30.9) [facility] Other 10-04-2011 History general Narrative - Reported* Type Description Date Medical History 2009 Mammogram Medical History 2009 Colonoscopy Done Medical History 2005 Stress Test Medical History Dexa Scan 12-10 Repeat in 06-15 Medical History Flu Shot 04-07-11 Medical History Colonoscopy 2010 Dr. Clayton (2 polyps) repeat in 1 year Medical [facility] Medical History DEXA 11-25-15 repeat in 2 years ( 2018) Surgical History hysterectomy 1998 Surgical History colon ca, 1/3 of colon removed 1976 Surgical History tubal ligation 1979 Surgical History roxana breast implants 1979 Surgical History T & A Surgical History uterine cancer 1998 Surgical History Colonoscopy January? 2010 Dr. Serrano ty (2 polyps removed) Surgical History cataract 07/2013 Surgical History Colonoscopy, Dr. Clayton 1 polyp removed 05-18-14 Surgical History [facility] - [facility] 03/[facility]/15 Surgical History removed blockage in uterer - [facility] 06/26/15 Surgical History cystoscopy - Ddr Stiff 09/21/17 Surgical History wisdom tooth removed 11/22/17 Surgical History heart [facility] 11/25/17 Surgical History colonoscopy - Dr Bland es / needs repeat in 5 years 07/2019 Hospitalization History see surgical history [facility] Other Evaluation noteNo InformationNort [facility] Other Evaluation noteNort [facility] Other Evaluation noteNo assessment information available [facility] Work Phone: Evaluation note* Diagnosis Onset Date Resolution Status HTN (hypertension) acute Hyperglycemia acute Hyperlipidemia acute Hypothyroidism acute [facility] Work Phone: Evaluation note* Diagnosis Onset Date Resolution Status Sprain of left foot acute [facility] Work Phone: History general N[facility]ative - [facility] [employer] Other Summary Purpose Family History No Family History Records Found Relationship Condition Age at Onset Recorded Date/T maria elena father Heart disease Unknown Malignant neoplasm Unknown Unknown family member Unknown grandparent Unknown Not Specified Heart disease Unknown brother Malignant neoplasm Unknown Relationship Condition Age at Onset Recorded Date/T maria elena father Heart disease Unknown Malignant neoplasm Unknown Unknown family member Unknown grandparent Unknown mother Heart disease Unknown brother Malignant neoplasm Unknown Advance Directives No Advanced Directives Records Found Advance Directive Response Recorded Date/ Time Advance Directives No March 4:27pm Advance Directive Response Recorded Date/ Time Advance Directives No November 25 9:47am Chief Complaint and Reason for Visit Chief Complaint E03.9 Z79.899 R73.9 E78.5 Chief Complaint E03.9 Z79.899 R73.9 E78.5 E78.5 Chief Complaint Z01.84 E03.9 E78.5 R 73.9 Z79.899 R35.1 Chief Complaint See order Chief Complaint E03.9 Z79.899 E78.5 R35.1 telephone/review labs Reason for Visit HTN (hypertension) Hyperglycemia Hyperlipidemia Hypothyroidism Chief Complaint left foot swelling M79.672 - Pain in left foot Chief Complaint left foot swelling M79.672 - Pain in left foot Reason for Visit Sprain of left foot Additional Source Comments INFORMATION SOURCE (unrecogn ized section and content) DATE CREATED AUTHOR 12/22/2017 [facility] DATE CREATED AUTHOR AUTHOR'S ORGANIZ ATION 12/22/2017 [facility] DATE CREATED AUTHOR AUTHOR'S ORGANIZ ATION [facility] DATE CREATED AUTHOR AUTHOR'S ORGANIZ ATION 08/23/2021 [facility] DATE CREATED AUTHOR AUTHOR'S ORGANIZ ATION 03/24/2024 [facility] REASON FOR VISIT (unrecogniz ed section and content) coughrefilllab orderrefillte sting requestrefillreview labsrefilllab orderClinicalNo Informationreview labRefillsrefillrefill Care Teams (unrecognized sec tion and content) Team Status: Active Member Role Status Kelly Duarte DO Primary Care Provider Active Team Status: Inactive Member Role Status Kelly Duarte DO Primary Care Provider Active S tart: March 20, 2024 End: March 20, 2024 Johana Garrett APRN Attending Provider Active Start: March 20, 2024 End: March 20, 2024 Team Status: Active Member Role Status Kelly Duarte DO Primary Care Provider Active S tart: March 20, 2024 Johana Garrett APRN Attending Provider Active Start: March 20, 2024 Team Status: Active Member Role Status Kelly Duarte DO Primary Care Provide r, Attending Provider Active Start: August 31, 2023 Team Status: Inactive Member Role Status Kelly Duarte DO Primary Care Provide r, Attending Provider Active Start: November 16, 2023 End: November 16, 2023 Team Status: Inactive Member Role Status Kelly Duarte DO Primary Care Provide r, Attending Provider Active Start: November 26, 2023 End: November 26, 2023 Team Status: Inactive Member Role Status Dates Margarette Duarte DO Primary Care Provider, Attending Pro vider Active Goals (unrecognized section and content) Goals may be documented in a n alternate section FOR RECORDS PERTAINING TO PATIENTS WHO ARE OR HAVE BEEN ENROLLED IN A CHEMICAL DEPENDENCY/SUBSTANCEABUSE PROGRAM, SOME INFORMATION MAY BE OMITTED. This clinical summary was aggregated from multiple sources. Caution should be exercised in using it in the provision of clinical care. This summary normalizes information from multiple sources, and as a consequence, information in this document may materially change the coding, format and clinical context of patient data. In addition, data may be omitted in some cases. CLINICAL DECISIONS SHOULD BE BASED ON THE PRIMARY CLINICAL RECORDS. [facility]. provides no warranty or guarantee of the accuracy or completeness of information in this document.
--- NOTE | 2024-03-27 08:05 | ECG_ITS ---
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
--- NOTE | 2024-03-27 08:06 | CT_ITS ---
The [address] [address] Patient Name: HIRO SEGOVIA MRN: [id number] date: 1945 Sex: F Assigned Patient Location: ED.MAIN Current Patient Location: ER Accession/Order Number: [id number] Exam Date: 03/27/2024 08:20 Report Date: 03/27/2024 08:38 At the request of: DAVINA RAMIREZ Procedure: CT stroke head/brain wo con NONCONTRAST HEAD CT COMPARISON: None. CLINICAL HISTORY: Left arm numbness. TECHNIQUE: Routine noncontrast images of the brain obtained. CT examination of the head without IV contrast. Dose reduction techniques were achieved by using: automated exposure control and/or adjustment of mA and /or kV according to patient size and/or use of iterative reconstruction technique. FINDINGS: Paranasal sinuses and mastoid air cells are clear. Intraorbital contents are unremarkable. No acute bony abnormality. Intracranially, there is no evidence of hemorrhage, mass effect, or midline shift. Ventricles and cisternal spaces are age appropriate. Dense carotid vascular calcifications. CT/CT stroke head/brain wo con IMPRESSION: No acute intracranial abnormality. Electronically authenticated by: MITA JUNG Date: 03/27/2024 08:38
[2024-03-27] MEDS: HYDRALAZINE HCL 20 MG/ML VIAL 5 MG IVP ×2 (08:13→09:38)
--- NOTE | 2024-03-27 08:25 | XR_ITS ---
The [address] [address] Patient Name: HIOR SEGOVIA MRN: [id number] date: 1945 Sex: F Assigned Patient Location: ED.MAIN Current Patient Location: ER Accession/Order Number: [id number] Exam Date: 03/27/2024 08:20 Report Date: 03/27/2024 08:44 At the request of: DAVINA RAMIREZ Procedure: XR chest 1V EXAM: Chest x-ray HISTORY: . chest heaviness . COMPARISON: None. TECHNIQUE: Single view of the chest FINDINGS: Heart and vascularity are unremarkable. Lungs are free of focal infiltrates. Grossly no acute bony abnormality is appreciated. XR/XR chest 1V IMPRESSION: No acute heart or lung disease identified. Electronically authenticated by: MARGARETTE HOFF Date: 03/27/2024 08:44
[2024-03-27 08:29] LABS: Basophils Absolute Auto 0.1 10^3/uL (0.0-0.1); Basophils Percent Auto 1.2 % (0.2-2.0); Eosinophils Absolute Auto 0.6 10^3/uL (0.0-0.7); Eosinophils Percent Auto 10.2 % (0.9-7.0); Hematocrit 39.7 % (36.0-48.0); Hemoglobin 13.3 g/dL (12.0-16.0); Immature Granulocytes Abs Auto 0.02 10^3/uL (0.00-0.03); Immature Granulocytes Pct Auto 0.3 % (0.0-0.5); Lymphocytes Absolute Auto 2.1 10^3/uL (1.2-3.8); Lymphocytes Percent Auto 37.2 % (20.5-60.0); Mean Corpuscular HGB Conc 33.5 g/dL (29.9-35.2); Mean Corpuscular Hemoglobin 31.4 pg (26.7-34.0); Mean Corpuscular Volume 93.6 fL (81.0-99.0); Mean Platelet Volume 9.5 fL (9.5-13.5); Monocytes Absolute Auto 0.5 10^3/uL (0.3-0.8); Monocytes Percent Auto 8.3 % (1.7-12.0); Neutrophils Absolute Auto 2.5 10^3/uL (1.4-6.5); Neutrophils Percent Auto 42.8 % (43.0-75.0); Platelet Count 249 10^3/uL (150-450); Red Blood Count 4.24 10^6/uL (4.20-5.40); Red Cell Distribution Width 12.9 % (11.0-15.0); White Blood Count 5.8 10^3/uL (4.0-11.0)
[2024-03-27 08:31] LABS: Magnesium 2.2 mg/dL (1.8-2.4)
[2024-03-27 08:39] LABS: INR 0.97; Prothrombin Time 10.3 sec (9.0-11.6)
[2024-03-27 08:40] LABS: Alanine Aminotransferase 28 U/L (14-59); Albumin Level 3.8 g/dL (3.4-5.0); Alkaline Phosphatase 102 U/L (46-116); Anion Gap 10.6; Aspartate Amino Transferase 24 U/L (15-37); BUN Creatinine Ratio 22.3; Bilirubin Total 0.5 mg/dL (0.2-1.0); Calcium 9.6 mg/dL (8.5-10.1); Carbon Dioxide 28.3 mmol/L (21.0-32.0); Chloride 103 mmol/L (98-107); Estimated GFR (African America >60 (>=60); Estimated GFR (Non-African Ame 58 (>=60); Globulin 3.7 g/dL; Glucose 113 mg/dL (74-106); Potassium 3.9 mmol/L (3.5-5.1); Sodium 138 mmol/L (136-145); Total Protein 7.5 g/dL (6.4-8.2); Troponin I High Sensitivity 6.9 pg/mL (4.0-51.3)
--- NOTE | 2024-03-27 08:44 | ED_ITS ---
HPI - Weakness General Chief complaint: Weakness Stated complaint: cva symptoms Time Seen by Provider: 03/27/24 08:05 Source: patient Mode of arrival: walk-in History of Present Illness HPI Narrative: The patient have history of hypertension presenting to us with a episode of numbness and tingling in her left side of the face as well as left upper and lower extremity weakness she mentioned that she might had some slurred speech but it all continued for only 5 minutes, by the time she got to the ER she was already feeling better She had similar episode on Wednesday but she according to her the weakness in her left upper and lower extremity was worse The patient walked in here with no complaint. She also mentioned that on Wednesday she did had some headache but today she does not have any headache The patient has been taking her losartan twice to control her blood pressure Related Data Home Medications ?Medication ?Instructions ?Recorded ?Confirmed levothyroxine 88 mcg tablet 88 mcg PO DAILY 03/27/24 03/27/24 losartan 50 mg tablet 50 mg PO DAILY 03/27/24 03/27/24 meloxicam 7.5 mg tablet 7.5 mg PO DAILY 03/27/24 03/27/24 Allergies Allergy/AdvReac Type Severity Reaction Status Date / Time shellfish derived AdvReac Severe Anaphylaxis Verified 03/27/24 08:23 Review of Systems ROS Status of ROS 10 or more systems reviewed and unremark able except as noted in history and below PFSH PFSH Social History Smoking status: Never smoker Little interest or pleasure in doing things: not at all Feeling down, depressed, or hopeless: not at all Exam Narrative Exam Narrative: Nurses notes and vital signs reviewed and patient is not hypoxic. General: Well-appearing and in no apparent distress. Skin: Warm, dry, no pallor noted. No rash. Head: Normocephalic, atraumatic. Neck: Supple, non-tender. Eye: Pupils are equal, round and EOMI. No scleral icterus. Ears, Nose, Mouth, and Throat: TM are clear, no nasal mucosal hypertrophy. Oral mucosa is moist, no posterior oropharynx erythema, uvula is mid-line Cardiovascular: Regular Rate and Rhythm without murmur, gallop or rub. Respiratory: No accessory muscle use or respiratory distress. Lungs are clear to auscultation, no wheezing, rales or rhonchi Chest Wall: no tenderness Back: No midline thoracic or lumbar vertebral tenderness. No CVA tenderness Musculoskeletal: normal ROM, no calf or popliteal tenderness, no lower extremity edema/swelling GI: Abdomen is soft, non-distended. Normal bowel sounds. No masses appreciated. No tenderness to palpation. No rebound, guarding, or rigidity noted. Neurological: A&O x4. No cranial nerve dysfunction observed. No truncal ataxia. Moves all extremities. Sensation intact. Psychiatric: Cooperative and interactive. Normal mood and affect. Constitutional Vital Signs, click to edit/add: Last Vital Signs Temp 97.5 F L 03/27/24 07:55 Pulse 126 H 03/27/24 10:03 Resp 13 03/27/24 10:03 BP 186/87 H 03/27/24 10:03 Pulse Ox 94 L 03/27/24 10:03 Course Vital Signs Vital signs: Vital Signs Temperature 97.5 F L 03/27/24 07:55 Pulse Rate 88 03/27/24 07:55 Respiratory Rate 18 03/27/24 07:55 Blood Pressure 228/110 H 03/27/24 07:55 Pulse Oximetry 96 03/27/24 07:55 Temperature 97.5 F L 03/27/24 07:55 Pulse Rate 126 H 03/27/24 10:03 Respiratory Rate 13 03/27/24 10:03 Blood Pressure 186/87 H 03/27/24 10:03 Pulse Oximetry 94 L 03/27/24 10:03 MDM - Weakness MDM Narrative Medical decision making narrative: By the time the patient arrived to us it was 8 AM which is half an hour after the start of the symptoms The patient then had no complaint and her NIH score was 0 Her blood pressure was above 220 and she was started on treatment with hydralazine 5 mg initially that was enough to control her blood pressure to 172/[address] head showed no acute pathology She did mention having chest pressure sometimes although she does not have it at the moment but according to her over the last few days she has been having that on and off The patient denies any shortness of breath or any chest pain at the moment CBC chemistry as well as troponin showed no acute pathology and the patient case was discussed with the teleneurology service and according to the neurologist the patient can be admitted to our facility with further control of the blood pressure to less than [address] angio of the head and neck also is ordered The patient EKG was showing sinus rhythm with a heart rate of [address] elevation or depression Patient also provided with aspirin [address] angio head and neck showed no acute pathology for any significant stenosis Patient case was discussed with and he agreed with above-mentioned plan Lab Data Labs: Lab Results 03/27/24 Range/Units 08:12 WBC 5.8 (4.0-11.0) 10^3/uL RBC 4.24 (4.20-5.40) 10^6/uL Hgb 13.3 (12.0-16.0) g/dL Hct 39.7 (36.0-48.0) % MCV 93.6 (81.0-99.0) fL MCH 31.4 (26.7-34.0) pg MCHC 33.5 (29.9-35.2) g/dL RDW 12.9 (11.0-15.0) % Plt Count 249 (150-450) 10^3/uL MPV 9.5 (9.5-13.5) fL Neut % (Auto) 42.8 L (43.0-75.0) % Lymph % (Auto) 37.2 (20.5-60.0) % [place] % (Auto) 8.3 (1.7-12.0) % Eos % (Auto) 10.2 H (0.9-7.0) % Baso % (Auto) 1.2 (0.2-2.0) % Neut # (Auto) 2.5 (1.4-6.5) 10^3/uL Lymph # (Auto) 2.1 (1.2-3.8) 10^3/uL [place] # (Auto) 0.5 (0.3-0.8) 10^3/uL Eos # (Auto) 0.6 (0.0-0.7) 10^3/uL Baso # (Auto) 0.1 (0.0-0.1) 10^3/uL Abs Immat Gran (auto) 0.02 (0.00-0.03) 10^3/uL Imm/Tot Granulo (auto) 0.3 (0.0-0.5) % PT 10.3 (9.0-11.6) sec INR 0.97 Sodium 138 (136-145) mmol/L Potassium 3.9 (3.5-5.1) mmol/L Chloride 103 (98-107) mmol/L Carbon Dioxide 28.3 (21.0-32.0) mmol/L Anion Gap 10.6 BUN 21.0 H (7.0-18.0) mg/dL Creatinine 0.94 (0.55-1.02) mg/dL Est GFR ( Amer) >60 (>=60) Est GFR (Non-Af Amer) 58 L (>=60) BUN/Creatinine Ratio 22.3 Glucose 113 H (74-106) mg/dL Calcium 9.6 (8.5-10.1) mg/dL Magnesium 2.2 (1.8-2.4) mg/dL Total Bilirubin 0.5 (0.2-1.0) mg/dL AST 24 (15-37) U/L ALT 28 (14-59) U/L Alkaline Phosphatase 102 (46-116) U/L Troponin I High Sens 6.9 (4.0-51.3) pg/mL Total Protein 7.5 (6.4-8.2) g/dL Albumin 3.8 (3.4-5.0) g/dL Globulin 3.7 g/dL Albumin/Globulin Ratio 1.0 Discharge Plan Discharge Chief Complaint: Weakness Clinical Impression: Brain TIA, Hypertensive emergency Patient Disposition: Admitted As Inpatient Time of Disposition Decision: 09:08
--- NOTE | 2024-03-27 09:10 | CT_ITS ---
The [address] [address] Patient Name: HIRO SEGOVIA MRN: [id number] date: 1945 Sex: F Assigned Patient Location: ER Current Patient Location: Accession/Order Number: [id number] Exam Date: 03/27/2024 09:05 Report Date: 03/27/2024 09:35 At the request of: DAVINA RAMIREZ Procedure: CT angio head CT angio head, CT angio neck, 03/27/2024 9:05 AM EDT INDICATION: tia COMPARISON: Prior CT of head of the same date TECHNIQUE: Pre and postcontrast enhanced CT angiography of the head and neck were acquired with contrast .3 D MIP images were reconstructed in sagittal and coronal format at the scanner and were evaluated at the time of dictation. Dose reduction techniques were achieved by using automated exposure control and/or adjustment of mA and/or kV according to patient size and/or use of iterative reconstruction technique. FINDINGS: The great vessels enhance normally. No filling defects are identified within the carotid arteries. There is stenosis at the origin of the internal carotid arteries. No abnormality of [place] is noted. The LUCIANA MCA and SCOUTS are unremarkable. The anterior and posterior communicating arteries are patent. There is no aneurysm or significant stenosis. No abnormality of the vertebral and basilar arteries is noted. No mass, mass effect or midline shift or hemorrhage in the brain parenchyma is noted. A retention cyst within the left maxillary sinus is noted. No significant soft tissue abnormality within the neck is noted. The visualized portion of the lungs is unremarkable. No suspicious bone lesion is noted. Multilevel degenerative changes of cervical spine. CT/CT angio head IMPRESSION: No CT evidence of embolus or severe stenosis or dissection in the major arteries in the current study. CAROTID STENOSIS REFERENCE: MILD = <50% stenosis. MODERATE = 50-69% stenosis. SEVERE = >70% stenosis. Electronically authenticated by: HERIBERTO TRINIDAD Date: 03/27/2024 09:35
--- NOTE | 2024-03-27 09:10 | CT_ITS ---
The [address] [address] Patient Name: HIRO SEGOVIA MRN: [id number] date: 1945 Sex: F Assigned Patient Location: ER Current Patient Location: Accession/Order Number: [id number] Exam Date: 03/27/2024 09:05 Report Date: 03/27/2024 09:35 At the request of: DAVINA RAMIREZ Procedure: CT angio neck CT angio head, CT angio neck, 03/27/2024 9:05 AM EDT INDICATION: tia COMPARISON: Prior CT of head of the same date TECHNIQUE: Pre and postcontrast enhanced CT angiography of the head and neck were acquired with contrast .3 D MIP images were reconstructed in sagittal and coronal format at the scanner and were evaluated at the time of dictation. Dose reduction techniques were achieved by using automated exposure control and/or adjustment of mA and/or kV according to patient size and/or use of iterative reconstruction technique. FINDINGS: The great vessels enhance normally. No filling defects are identified within the carotid arteries. There is stenosis at the origin of the internal carotid arteries. No abnormality of [place] is noted. 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 The anterior and posterior communicating arteries are patent. There is no aneurysm or significant stenosis. No abnormality of the vertebral and basilar arteries is noted. No mass, mass effect or midline shift or hemorrhage in the brain parenchyma is noted. A retention cyst within the left maxillary sinus is noted. No significant soft tissue abnormality within the neck is noted. The visualized portion of the lungs is unremarkable. No suspicious bone lesion is noted. Multilevel degenerative changes of cervical spine. CT/CT angio neck IMPRESSION: No CT evidence of embolus or severe stenosis or dissection in the major arteries in the current study. CAROTID STENOSIS REFERENCE: MILD = <50% stenosis. MODERATE = 50-69% stenosis. SEVERE = >70% stenosis. Electronically authenticated by: HERIBERTO TRINIDAD Date: 03/27/2024 09:35
[2024-03-27] MEDS: ASPIRIN 81 MG TAB.CHEW 324 MG PO (09:13)
--- OUTSIDE RECORDS SUMMARY | 2024-03-27 11:04 | XMS_ITS | CCD ---
Author Organization [facility] Care Team Providers Care Instrument Maintenance Supervisor Name Role Phone BORIS CORTEZ Unavailable Unavailable [...] Provider DO Margarette Duarte Primary Care Provider DENNISE Garrett Attending Provider Margarette Duarte Primary Care Unavailable Margarette Duarte Attending Unavailable Margarette Duarte Admitting Unavailable Johana Garrett Admitting Unavailable Johana Garrett Attending Unavailable Margarette Duarte Primary Care Unavailable Allergies Allergy Classification Reported Allergen(s) Allergy Type Date of Onset Reaction(s) Facility (1 source) moxifloxacin Drug Allergy 07-13-19 20 [facility] (1 source) Penicillin Drug Allergy 02-20-20 14 [facility] (1 source) Misc-Food; Translations: [Misc-Food] Food allergy (disorder) 07-13-19 20 [facility] (19 sources) moxifloxacin Drug Allergy 11-23-19 24 Unknown, Unknown Reaction [facility] (16 sources) Seafood Propensity to adverse reactions Unknown [employer] Other (6 sources) Penicillins; Translations: [Penicillins] Allergy to substance 09-18-[address] [facility] (8 sources) Shellfish; Translations: [shellfish derived] Allergy to substance 09-18-[address] [facility] (1 source) moxifloxacin Drug Allergy 03-20-20 [facility] Medications Current Medications Medication Drug [...] sources) Calcitonin Start: 09-16-2017 End: 11-23-2023 Calcitonin ([place]) Discontinued September 16, 2017 12:00am November 23, [...] fracture] Chronic Other aftercare (2 sources) Other fpc (current) drug therapy Onset: 03-17-2022 Resolved: 03-17-2022 [...] 3V*on 024 XR foot LT min 3V* [facility] [place] [address] XRay Report Signed Patient: Zeny Segovia MR#: [id number] : 1945 Acct:[id number] Age/Sex: 78 / F ADM Date: 03/20/24 Loc: XDUCLY Room: Type: [facility] Attending Dr: Johana Garrett APRN Copies to: Johana Garrett APRN Ordering Provider: Johana Garrett APRN Date [...] Sahil Chacon M.D.03/20/2024 11:45 AM Dictation Location: [place] [address] Transcribed By: [facility] 03/20/24 1145 Dictated By: Sahil Chacon DO 03/20/24 1143 Signed By: 03/20/24 1145 Normal [facility] A1C with Estimated Average G kiley 11-16-2023 Glucose [Mass/Vol] 111 mg/dL Normal [facility] Comment on above: Order Comment: MICHAEL RANDOLPH Result Comment: PERF ORMED BY: [place] [address] PATHOLOGIST ENGINEERING PSYCHOLOGIST BRYAN CORTEZ M.D. Performed By: #### A 1C WT eA, CMP, TSH3, CBC, T4F, CUU, ADDONUAPLUS, LIPID, T3F #### [facility] [address] [place] [address] [place] Alanine aminotransferase [En zymatic activity/volume] in Serum or PlasmaOrdered By: Margarette Duarte on 11-16-2023 ALT [Catalytic activity/Vol] 19 U/L Normal 7-52 [facility] Comment on above: Order Comment: MICHAEL RANDOLPH Performed By: #### A 1C WT eA, CMP, TSH3, CBC, T4F, CUU, ADDONUAPLUS, LIPID, T3F #### [facility] [address] [place] [id number] [place] Albumin [Mass/volume] in Ser um or Plasma by Bromocresol green (BCG) dye binding methoOrdered By: Margarette Duarte on 11-16-2023 Albumin BCG dye [Mass/Vol] 4.1 g/dL 3.5-5.7 [facility] Alkaline phosphatase [Enzyma tic activity/volume] in Serum or PlasmaOrdered By: Margarette Duarte on 11-16-2023 ALP [Catalytic activity/Vol] 66 U/L Normal 34-104 [facility] Comment on above: Order Comment: FASTI NG. JKW Performed By: #### A 1C WTH eA, CMP, TSH3, CBC, T4F, CUU, ADDONUAPLUS, LIPID, T3F #### [address] Aspartate aminotransferase [ Enzymatic activity/volume] in Serum or PlasmaOrdered By: Margarette Duarte on 11-16-2023 AST [Catalytic activity/Vol] 20 U/L Normal 13-39 [facility] Comment on above: Order Comment: FASTI NG. JKW Performed By: #### A 1C WTH eA, CMP, TSH3, CBC, T4F, CUU, ADDONUAPLUS, LIPID, T3F #### [address] Automated basophil %Ordered By: Margarette Duarte on 11-16-2023 Basophils/100 WBC (Bld) 0.9 % Normal . [facility] Comment on above: Order Comment: FASTI NG. JKW Performed By: #### A 1C WTH eA, CMP, TSH3, CBC, T4F, CUU, ADDONUAPLUS, LIPID, T3F #### [address] Automated basophil countOrde red By: Margarette Duarte on 11-16-2023 Basophils (Bld) [#/Vol] 0.0 10*3/uL Normal 0.0-0.2 [facility] Comment on above: Order Comment: FASTI NG. JKW Result Comment: PERF ORMED BY: [place] [address] PATHOLOGIST ENGINEERING PSYCHOLOGIST BRYAN CORTEZ M.D. Performed By: #### A 1C WTH eA, CMP, TSH3, CBC, T4F, CUU, ADDONUAPLUS, LIPID, T3F #### [address] Automated blood monocyte cou ntOrdered By: Margarette Duarte on 11-16-2023 Monocytes (Bld) [#/Vol] 0.5 10*3/uL Normal 0.0-0.8 [facility] Comment on above: Order Comment: FASTI NG. JKW Performed By: #### A 1C WTH eA, CMP, TSH3, CBC, T4F, CUU, ADDONUAPLUS, LIPID, T3F #### [facility] [address] Automated eosinophil %Ordere d By: Margarette Duarte on 11-16-2023 Eosinophils/100 WBC (Bld) 9.9 % Normal . [facility] Comment on above: Order Comment: FASTI NG. JKW Performed By: #### A 1C WTH eA, CMP, TSH3, CBC, T4F, CUU, ADDONUAPLUS, LIPID, T3F #### [facility] [address] Automated eosinophil countOr dered By: Margarette Duarte on 11-16-2023 Eosinophils (Bld) [#/Vol] 0.5 10*3/uL High 0.0-0.45 [facility] Comment on above: Order Comment: FASTI NG. JKW Performed By: #### A 1C WT eA, CMP, TSH3, CBC, T4F, CUU, ADDONUAPLUS, LIPID, T3F #### [facility] [address] [place] [address] Automated monocyte %Ordered By: Margarette Duarte on 11-16-2023 Monocytes/100 WBC (Bld) 10.4 % Normal . [facility] Comment on above: Order Comment: FASTI NG. JKW Performed By: #### A 1C WTH eA, CMP, TSH3, CBC, T4F, CUU, ADDONUAPLUS, LIPID, T3F #### [facility] [address] Automated neutrophil %Ordere d By: Margarette Duarte on 11-16-2023 Neutrophils/100 WBC (Bld) 50.0 % Normal . [facility] Comment on above: Order Comment: FASTI NG. JKW Performed By: #### A 1C WTH eA, CMP, TSH3, CBC, T4F, CUU, ADDONUAPLUS, LIPID, T3F #### [facility] [address] [place] [address] [place] Bacteria [Presence] in Urine by AutomatedOrdered By: Margarette Duarte on 11-16-2023 Bacteria Auto Ql (U) None seen [HPF] None Seen [facility] Bilirubin Test strip Ql (U)O rdered By: Margarette Duarte on 11-16-2023 Bilirubin Ql (U) Negative Negative [facility] Bilirubin.total [Mass/volume ] in Serum or PlasmaOrdered By: Margarette Duarte on 11-16-2023 Bilirubin [Mass/Vol] 0.5 mg/dL Normal 0.3-1.0 [facility] Comment on above: Order Comment: MICHAEL BorgesKW Performed By: #### A 1C WTH eA, CMP, TSH3, CBC, T4F, CUU, ADDONUAPLUS, LIPID, T3F #### [facility] [address] [place] [address] [place] Calcium [Mass/volume] in Ser um or PlasmaOrdered By: Margarette Duarte on 11-16-2023 Calcium [Mass/Vol] 9.2 mg/dL Normal 8.6-10.3 [facility] Comment on above: Order Comment: MICHAEL BorgesKW Performed By: #### A 1C WTH eA, CMP, TSH3, CBC, T4F, CUU, ADDONUAPLUS, LIPID, T3F #### [facility] [address] [place] [id number] [place] Carbon dioxide, total [Moles /volume] in Serum or PlasmaOrdered By: Margarette Duarte on 11-16-2023 CO2 [Moles/Vol] 27.7 mmol/L Normal 21.0-31.0 [facility] Comment on above: Order Comment: MICHAEL MARTINEZ JKW Performed By: #### A 1C WTH eA, CMP, TSH3, CBC, T4F, CUU, ADDONUAPLUS, LIPID, T3F #### [facility] [address] [place] [id number] [place] Chloride [Moles/volume] in S may or PlasmaOrdered By: Margarette Duarte on 11-16-2023 Chloride [Moles/Vol] 110 mmol/L High 98-107 [facility] Comment on above: Order Comment: MICHAEL BorgesKW Performed By: #### A 1C WTH eA, CMP, TSH3, CBC, T4F, CUU, ADDONUAPLUS, LIPID, T3F #### [facility] [address] [place] [id number] [place] Cholesterol [Mass/volume] in Serum or PlasmaOrdered By: Margarette Duarte on 11-16-2023 Cholesterol [Mass/Vol] 246 mg/dL High 140-200 [facility] Comment on above: Chol less than 200 m g/dl low riskChol 201-239 mg/dl borderline riskChol 240 mg/dl and greater high risk Order Comment: MICHAEL LINW Result Comment: Chol less than 200 mg/dl low risk Chol 201-239 mg/dl borderline risk Chol 240 mg/dl and greater high risk Performed By: #### A 1C WTH eA, CMP, TSH3, CBC, T4F, CUU, ADDONUAPLUS, LIPID, T3F #### [facility] [address] [place] [phone] [place] Cholesterol in LDL Calc [Mas s/Vol]Ordered By: Margarette Duarte on 11-16-2023 Cholesterol in LDL [Mass/Vol] 162 mg/dL 0-100 [facility] Comment on above: LDL ATP III CLASSIFI CATIONLDL less than 100 mg/dL OptimalLDL 100-129 mg/dL Near or above optimalLDL 130-159 mg/dL Borderline highLDL 160-189 mg/dL HighLDL greater than 189 mg/dL Very high Cholesterol in VLDL Calc [Ma ss/Vol]Ordered By: Margarette Duarte on 11-16-2023 Cholesterol in VLDL [Mass/Vol] 23 mg/dL [facility] Color of Urine by AutoOrdere d By: Margarette Duarte on 11-16-2023 Color (U) Yellow Normal Yellow [facility] Comment on above: Order Comment: MICHAEL RANDOLPH Name Collection Type:: Clean-Voided Midstream Performed By: #### A 1C WTH eA, CMP, TSH3, CBC, T4F, CUU, ADDONUAPLUS, LIPID, T3F #### [facility] [address] [place] [address] Complete Blood Count Auto Di ffon 11-16-2023 Mean Corpuscular HGB Conc 33.9 g/dL Normal 32.0-35.0 [facility] Comment on above: Order Comment: FASTI NG. JKW Performed By: #### A 1C WTH eA, CMP, TSH3, CBC, T4F, CUU, ADDONUAPLUS, LIPID, T3F #### [facility] [address] [place] [address] NRBC% 0.1 /100{WBC} Normal 0-0.5 [facility] Comment on above: Order Comment: FASTI NG. JKW Performed By: #### A 1C WTH eA, CMP, TSH3, CBC, T4F, CUU, ADDONUAPLUS, LIPID, T3F #### [facility] [address] [place] [address] Comprehensive Metabolic Pane rere 11-16-2023 Albumin [Mass/Vol] 4.1 g/dL Normal 3.5-5.7 [facility] Comment on above: Order Comment: FASTI NG. JKW Performed By: #### A 1C WTH eA, CMP, TSH3, CBC, T4F, CUU, ADDONUAPLUS, LIPID, T3F #### [facility] [address] [place] [address] GFR/1.73 sq M.predicted MDRD (S/P/Bld) [Vol rate/Area] mL/min/{1.73_m2} Normal [facility] Comment on above: Order Comment: FASTI NG. JKW Performed By: #### A 1C WTH eA, CMP, TSH3, CBC, T4F, CUU, ADDONUAPLUS, LIPID, T3F #### [facility] [address] [place] [address] Creatinine [Mass/volume] in Serum or PlasmaOrdered By: Margarette Duarte on 11-16-2023 Creatinine [Mass/Vol] 0.87 mg/dL Normal 0.60-1.20 [facility] Comment on above: Order Comment: FASTI NG. JKW Performed By: #### A 1C WTH eA, CMP, TSH3, CBC, T4F, CUU, ADDONUAPLUS, LIPID, T3F #### [facility] [address] [place] [address] [place] Dipstick and Microscopicon 0 11-16-2023 Appearance (U) Clear Normal Clear [facility] Comment on above: Order Comment: FASTI NG. JKW Name Collection Type:: Clean-Voided Midstream Performed By: #### A 1C WTH eA, CMP, TSH3, CBC, T4F, CUU, ADDONUAPLUS, LIPID, T3F #### [facility] [address] Bacteria,Urine None Seen Normal None Seen [facility] Comment on above: Order Comment: FASTI NG. JKW Name Collection Type:: Clean-Voided Midstream Performed By: #### A 1C WTH eA, CMP, TSH3, CBC, T4F, CUU, ADDONUAPLUS, LIPID, T3F #### [address] Bilirubin,Urine Negative Normal Negative [facility] Comment on above: Order Comment: FASTI NG. JKW Name Collection Type:: Clean-Voided Midstream Performed By: #### A 1C WTH eA, CMP, TSH3, CBC, T4F, CUU, ADDONUAPLUS, LIPID, T3F #### [address] Glucose Ql (U) Normal Normal Normal [facility] Comment on above: Order Comment: FASTI NG. JKW Name Collection Type:: Clean-Voided Midstream Performed By: #### A 1C WTH eA, CMP, TSH3, CBC, T4F, CUU, ADDONUAPLUS, LIPID, T3F #### [address] Hyaline Casts,Urine None Seen Normal 0-8 [facility] Comment on above: Order Comment: FASTI NG. JKW Name Collection Type:: Clean-Voided Midstream Result Comment: PERF ORMED BY: [place] [address] PATHOLOGIST ENGINEERING PSYCHOLOGIST BRYAN CORTEZ M.D. Performed By: #### A 1C WTH eA, CMP, TSH3, CBC, T4F, CUU, ADDONUAPLUS, LIPID, T3F #### [address] Ketones Ql (U) Negative Normal Negative [facility] Comment on above: Order Comment: FASTI NG. JKW Name Collection Type:: Clean-Voided Midstream Performed By: #### A 1C WTH eA, CMP, TSH3, CBC, T4F, CUU, ADDONUAPLUS, LIPID, T3F #### [address] Leukocyte esterase Test strip Ql (U) Negative Normal Negative [facility] Comment on above: Order Comment: FASTI NG. JKW Name Collection Type:: Clean-Voided Midstream Performed By: #### A 1C WTH eA, CMP, TSH3, CBC, T4F, CUU, ADDONUAPLUS, LIPID, T3F #### [place] [address] [place] Nitrite,Urine Negative Normal Negative [facility] Comment on above: Order Comment: FASTI NG. JKW Name Collection Type:: Clean-Voided Midstream Performed By: #### A 1C WTH eA, CMP, TSH3, CBC, T4F, CUU, ADDONUAPLUS, LIPID, T3F #### [place] [address] [place] Occult Blood,Urine Negative Normal Negative [facility] Comment on above: Order Comment: FASTI NG. JKW Name Collection Type:: Clean-Voided Midstream Performed By: #### A 1C WTH eA, CMP, TSH3, CBC, T4F, CUU, ADDONUAPLUS, LIPID, T3F #### [place] [address] [place] Protein,Urine Negative Normal Negative [facility] Comment on above: Order Comment: FASTI NG. JKW Name Collection Type:: Clean-Voided Midstream Performed By: #### A 1C WTH eA, CMP, TSH3, CBC, T4F, CUU, ADDONUAPLUS, LIPID, T3F #### [facility] [address] RBC LM.HPF (Urine sed) [#/Area] 0 /[HPF] Normal 0-4 [facility] Comment on above: Order Comment: FASTI NG. JKW Name Collection Type:: Clean-Voided Midstream Performed By: #### A 1C WTH eA, CMP, TSH3, CBC, T4F, CUU, ADDONUAPLUS, LIPID, T3F #### [facility] [address] Specificy [place],Urine 1.016 Normal 1.001-1.030 [facility] Comment on above: Order Comment: FASTI NG. JKW Name Collection Type:: Clean-Voided Midstream Performed By: #### A 1C WTH eA, CMP, TSH3, CBC, T4F, CUU, ADDONUAPLUS, LIPID, T3F #### [address] Squamous Epithelial Cell,Urine None Seen Normal 0-2 [facility] Comment on above: Order Comment: FASTI NG. JKW Name Collection Type:: Clean-Voided Midstream Performed By: #### A 1C WTH eA, CMP, TSH3, CBC, T4F, CUU, ADDONUAPLUS, LIPID, T3F #### [address] Urobilinogen,Urine Normal Normal Normal [facility] Comment on above: Order Comment: FASTI NG. JKW Name Collection Type:: Clean-Voided Midstream Performed By: #### A 1C WTH eA, CMP, TSH3, CBC, T4F, CUU, ADDONUAPLUS, LIPID, T3F #### [address] WBC,Urine 1-2 Normal 0-4 [facility] Comment on above: Order Comment: FASTI NG. JKW Name Collection Type:: Clean-Voided Midstream Performed By: #### A 1C WTH eA, CMP, TSH3, CBC, T4F, CUU, ADDONUAPLUS, LIPID, T3F #### [facility] [address] Erythrocyte distribution wid th [Ratio] by Automated countOrdered By: Margarette Duarte on 11-16-2023 Erythrocyte distribution width (RBC) [Ratio] 12.9 % Normal 11.9-15.3 [facility] Comment on above: Order Comment: FASTI NG. JKW Performed By: #### A 1C WTH eA, CMP, TSH3, CBC, T4F, CUU, ADDONUAPLUS, LIPID, T3F #### [facility] [address] Erythrocytes [#/area] in Uri ne sediment by Automated countOrdered By: Margarette Duarte on 11-16-2023 RBC Auto (Urine sed) [#/Area] 0-1 [HPF] 0-4 [facility] Erythrocytes [#/volume] in B lood by Automated countOrdered By: Margarette Duarte on 11-16-2023 RBC (Bld) [#/Vol] 3.99 10*6/uL Normal 3.60-5.00 [facility] Comment on above: Order Comment: FASTI NG. JKW Performed By: #### A 1C WTH eA, CMP, TSH3, CBC, T4F, CUU, ADDONUAPLUS, LIPID, T3F #### [facility] [address] Glucose [Mass/volume] in Ser um or PlasmaOrdered By: Margarette Duarte on 11-16-2023 Glucose [Mass/Vol] 100 mg/dL Normal 70-100 [facility] Comment on above: ADA recommended refe rence rangeRandom Glucose Reference Range is dependent on time and content of last meal. Glucose of more than 200 mg/dL in a nonstressed, ambulatory subject supports the diagnosis of Diabetes Mellitus. Order Comment: FASTI NG. JKW Result Comment: [place] om Glucose Reference Range is dependent on time and content of last meal. Glucose of more than 200 mg/dL in a nonstressed, ambulatory subject supports the diagnosis of Diabetes Mellitus. ADA recommended reference range Performed By: #### A 1C WTH eA, CMP, TSH3, CBC, T4F, CUU, ADDONUAPLUS, LIPID, T3F #### [facility] [address] Glucose mean value [Mass/vol ume] in Blood Estimated from glycated hemoglobinOrdered By: Margarette Duarte on 11-16-2023 Average glucose Estimated from glycated hemoglobin (Bld) [Mass/Vol] 111 mg/dL [facility] Hematocrit [Volume Fraction] of Blood by Automated countOrdered By: Margarette Duarte on 11-16-2023 Hematocrit (Bld) [Volume fraction] 37.0 % Normal 34.0-46.4 [facility] Comment on above: Order Comment: MICHAEL CANTU. JonyKW Performed By: #### A 1C WTH eA, CMP, TSH3, CBC, T4F, CUU, ADDONUAPLUS, LIPID, T3F #### [facility] [address] Hemoglobin A1c percentageOrd ered By: Margarette Duarte on 11-16-2023 HbA1c (Bld) [Mass fraction] 5.5 % Normal 4.3-5.6 [facility] Comment on above: Increased risk for d iabetes: 5.7 - 6.4diabetes: >6.4glycemic control for adults with diabetes: <7.0 Order Comment: FASTI NG. JKW Result Comment: Incr eased risk for diabetes: 5.7 - 6.4 diabetes: >6.4 glycemic control for adults with diabetes: <7.0 Performed By: #### A 1C WTH eA, CMP, TSH3, CBC, T4F, CUU, ADDONUAPLUS, LIPID, T3F #### [facility] [address] Hemoglobin [Mass/volume] in BloodOrdered By: Margarette Duarte on 11-16-2023 Hemoglobin (Bld) [Mass/Vol] 12.6 g/dL Normal 11.8-15.4 [facility] Comment on above: Order Comment: FASTI NG. JKW Performed By: #### A 1C WT eA, CMP, TSH3, CBC, T4F, CUU, ADDONUAPLUS, LIPID, T3F #### [facility] [address] Ketones Auto test strip (U) [Mass/Vol]Ordered By: Margarette Duarte on 11-16-2023 Ketones (U) [Mass/Vol] Negative Negative [facility] - UrinalysisOrder ed By: Margarette Duarte on 11-16-2023 Hyaline casts LM Ql (Urine sed) None seen [LPF] 0-8 [facility] Leukocytes [#/area] in Urine sediment by Automated countOrdered By: Margarette Duarte on 11-16-2023 WBC Auto (Urine sed) [#/Area] 1-2 [HPF] 0-4 [facility] Leukocytes [#/volume] correc dano for nucleated erythrocytes in Blood by Automated counOrdered By: Margarette Duarte on 11-16-2023 WBC corrected for nucl RBC Auto (Bld) [#/Vol] 4.7 10*3/uL 3.8-11.6 [facility] Leukocytes [#/volume] in Blo od by Automated countOrdered By: Margarette Duarte on 11-16-2023 WBC (Bld) [#/Vol] 4.7 10*3/uL Normal 3.8-11.6 [facility] Comment on above: Order Comment: MICHAEL BorgesKW Performed By: #### A 1C WTH eA, CMP, TSH3, CBC, T4F, CUU, ADDONUAPLUS, LIPID, T3F #### [facility] [address] Lipid Panelon 11-16-2023 LDL Cholesterol,Calculated 162 mg/dL High 0-100 [facility] Comment on above: Order Comment: MICHAEL BorgesKW Result Comment: LDL ATP III CLASSIFICATION LDL less than 100 mg/dL Optimal LDL 100-129 mg/dL Near or above optimal LDL 130-159 mg/dL Borderline high LDL 160-189 mg/dL High LDL greater than 189 mg/dL Very high Performed By: #### A 1C WTH eA, CMP, TSH3, CBC, T4F, CUU, ADDONUAPLUS, LIPID, T3F #### [address] Triglyceride w/Reflex 116 mg/dL Normal 0-149 [facility] Comment on above: Order [...] CBC, T4F, CUU, ADDONUAPLUS, LIPID, T3F #### [address] VLDL CHOLESTEROL 23 mg/dL Normal [facility] Comment on above: Order Comment: FASTI NG. JKW Performed By: #### A 1C WTH eA, CMP, TSH3, CBC, T4F, CUU, ADDONUAPLUS, LIPID, T3F #### [address] Lymphocytes [#/volume] in Bl ood by Automated countOrdered By: Margarette Duarte on 11-16-2023 Lymphocytes (Bld) [#/Vol] 1.4 10*3/uL Normal 1.00-4.8 [facility] Comment on above: Order Comment: FASTI NG. JKW Performed By: #### A 1C WTH eA, CMP, TSH3, CBC, T4F, CUU, ADDONUAPLUS, LIPID, T3F #### [address] Lymphocytes/100 leukocytes i n Blood by Automated countOrdered By: Margarette Duarte on 11-16-2023 Lymphocytes/100 WBC (Bld) 28.8 % Normal . [facility] Comment on above: Order Comment: FASTI NG. JKW Performed By: #### A 1C WTH eA, CMP, TSH3, CBC, T4F, CUU, ADDONUAPLUS, LIPID, T3F #### [address] MCH [Entitic mass] by Automa dano countOrdered By: Margarette Duarte on 11-16-2023 MCH (RBC) [Entitic mass] 31.5 pg Normal 24.7-34.3 [facility] Comment on above: Order Comment: FASTI PEPE. JKW Performed By: #### A 1C WTH eA, CMP, TSH3, CBC, T4F, CUU, ADDONUAPLUS, LIPID, T3F #### [facility] [address] MCHC Auto (RBC) [Mass/Vol]Or dered By: Margarette Duarte on 11-16-2023 MCHC (RBC) [Mass/Vol] 33.9 g/dL 32.0-35.0 [facility] MCV [Entitic volume] by Auto mated countOrdered By: Margarette Duarte on 11-16-2023 MCV (RBC) [Entitic vol] 92.7 fL Normal 80-100 F [facility] Comment on above: Order Comment: FASTLucius CANTU. JKW Performed By: #### A 1C WT eA, CMP, TSH3, CBC, T4F, CUU, ADDONUAPLUS, LIPID, T3F #### [facility] [address] [place] [address] Neutrophils [#/volume] in Bl ood by Automated countOrdered By: Margarette Duarte on 11-16-2023 Neutrophils (Bld) [#/Vol] 2.4 10*3/uL Normal 1.8-7.7 [facility] Comment on above: Order Comment: FASTI NG. JKW Performed By: #### A 1C WTH eA, CMP, TSH3, CBC, T4F, CUU, ADDONUAPLUS, LIPID, T3F #### [facility] [address] Nitrite Test strip Ql (U)Ord ered By: Margarette Duarte on 11-16-2023 Nitrite Ql (U) Negative Negative [facility] No Panel InformationOrdered By: Margarette Duarte on 11-16-2023 Estimated GFR (CKD-EPI) > 60.0 mL/Min [facility] Creatinine Clearance (Chem N/A [facility] Nucleated erythrocytes [Pres ence] in Blood by Automated countOrdered By: Margarette Duarte on 11-16-2023 Nucleated RBC Auto Ql (Bld) 0.1 /100{WBC} 0-0.5 [facility] Platelet mean volume [Entiti c volume] in Blood by Automated countOrdered By: Margarette Duarte on 11-16-2023 Platelet mean volume (Bld) [Entitic vol] 8.1 fL Normal 6.3-10.7 [facility] Comment on above: Order Comment: FASTI NG. JKW Performed By: #### A 1C WTH eA, CMP, TSH3, CBC, T4F, CUU, ADDONUAPLUS, LIPID, T3F #### [facility] [address] Platelets [#/volume] in Bloo d by Automated countOrdered By: Margarette Duarte on 11-16-2023 Platelets (Bld) [#/Vol] 247 10*3/uL Normal 150-450 [facility] Comment on above: Order Comment: FASTI NG. JKW Performed By: #### A 1C WTH eA, CMP, TSH3, CBC, T4F, CUU, ADDONUAPLUS, LIPID, T3F #### [facility] [address] Potassium [Moles/volume] in Serum or PlasmaOrdered By: Margarette Duarte on 11-16-2023 Potassium [Moles/Vol] 4.3 mmol/L Normal 3.5-5.1 [facility] Comment on above: Order Comment: FASTI NG. JKW Performed By: #### A 1C WTH eA, CMP, TSH3, CBC, T4F, CUU, ADDONUAPLUS, LIPID, T3F #### [facility] [address] Protein Auto test strip (U) [Mass/Vol]Ordered By: Margarette Duarte on 11-16-2023 Protein (U) [Mass/Vol] Negative Negative [facility] Protein [Mass/volume] in Ser um or PlasmaOrdered By: Margarette Duarte on 11-16-2023 Protein [Mass/Vol] 6.6 g/dL Normal 6.4-8.9 [facility] Comment on above: Order Comment: FASTI NG. JKW Performed By: #### A 1C WTH eA, CMP, TSH3, CBC, T4F, CUU, ADDONUAPLUS, LIPID, T3F #### [facility] [address] Serum globulin measurement b y calculation (mass/volume)Ordered By: Margarette Duarte on 11-16-2023 Globulin (S) [Mass/Vol] 2.5 g/dL Normal [facility] Comment on above: Order Comment: FASTI NG. JKW Performed By: #### A 1C WTH eA, CMP, TSH3, CBC, T4F, CUU, ADDONUAPLUS, LIPID, T3F #### [address] Serum or plasma albumin/glob ulin mass ratioOrdered By: Margarette Duarte on 11-16-2023 Albumin/Globulin [Mass ratio] 1.6 {ratio} Normal [facility] Comment on above: Order Comment: FASTI NG. JKW Performed By: #### A 1C WTH eA, CMP, TSH3, CBC, T4F, CUU, ADDONUAPLUS, LIPID, T3F #### [address] Serum or plasma anion gap de terminationOrdered By: Margarette Duarte on 11-16-2023 Anion gap [Moles/Vol] 2.6 mmol/L Low 6.0-15.0 [facility] Comment on above: Order Comment: FASTI NG. JKW Performed By: #### A 1C WTH eA, CMP, TSH3, CBC, T4F, CUU, ADDONUAPLUS, LIPID, T3F #### [address] Serum or plasma high density lipoprotein (HDL) cholesterol measurementOrdered By: Margarette Duarte on 11-16-2023 Cholesterol in HDL [Mass/Vol] 61 mg/dL Normal 23-92 [facility] Comment on above: HDL CHOL ATP-III [...] CBC, T4F, CUU, ADDONUAPLUS, LIPID, T3F #### [facility] [address] Serum or plasma total choles terol/high density lipoprotein (HDL) cholesterol mass ratOrdered By: Margarette Duarte on 11-16-2023 Cholesterol.total/Ora sterol in HDL [Mass ratio] 4.0 {ratio} Normal <5.0 [facility] Comment on above: Order Comment: MICHAEL MARTINEZ JKW Performed By: #### A 1C WT eA, CMP, TSH3, CBC, T4F, CUU, ADDONUAPLUS, LIPID, T3F #### [address] Sodium [Moles/volume] in Ser um or PlasmaOrdered By: Margarette Duarte on 11-16-2023 Sodium [Moles/Vol] 136 mmol/L Normal 136-145 [facility] Comment on above: Order Comment: MICHAEL MARTINEZ JKW Performed By: #### A 1C WTH eA, CMP, TSH3, CBC, T4F, CUU, ADDONUAPLUS, LIPID, T3F #### [address] Specific gravity Auto test s trip (U) [Rel density]Ordered By: Margarette Duarte on 11-16-2023 Specific gravity (U) [Rel density] 1.016 1.001-1.030 [facility] Squamous epithelial cells de tection in urine sediment by light microscopyOrdered By: Margarette Duarte on 11-16-2023 Epithelial cells.squamous LM Ql (Urine sed) None seen [HPF] 0-2 [facility] Thyrotropin [Units/volume] i n Serum or PlasmaOrdered By: Margarette Duarte on 11-16-2023 TSH Qn 0.23 m[IU]/L Low 0.45-5.33 [facility] Comment on above: Order Comment: MICHAEL BorgesKW Result Comment: PERF ORMED BY: [place] [address] PATHOLOGIST ENGINEERING PSYCHOLOGIST BRYAN CORTEZ M.D. Performed By: #### A 1C WTH eA, CMP, TSH3, CBC, T4F, CUU, ADDONUAPLUS, LIPID, T3F #### [address] Thyroxine (T4) free [Mass/vo lume] in Serum or PlasmaOrdered By: Margarette Duarte on 11-16-2023 Free T4 [Mass/Vol] 1.10 ng/dL Normal 0.61-1.12 [facility] Comment on above: Order Comment: MICHAEL BorgesKW Performed By: #### A 1C WTH eA, CMP, TSH3, CBC, T4F, CUU, ADDONUAPLUS, LIPID, T3F #### [address] Triglyceride [Mass/volume] i n Serum or PlasmaOrdered By: Margarette Duaret on 11-16-2023 Triglyceride [Mass/Vol] 116 mg/dL 0-149 F [facility] Comment on above: TRIG ATP III CLASSIF ICATIONTRIG less than 150 mg/dL NormalTRIG 150-199 mg/dL Borderline highTRIG 200-500 mg/dL High TRIG greater than 500 mg/dL Very highStandard traceable to the Center for Disease Conrtrol and Prevention (CDC) test method. Triiodothyronine (T3) Freeon 11-16-2023 Triiodothyronine (T3) Free 2.94 pg/mL Normal 2.50-3.90 [facility] Comment on above: Order Comment: MICHAEL BorgesKW Result Comment: PERF ORMED BY: [place] [address] PATHOLOGIST ENGINEERING PSYCHOLOGIST BRYAN CORTEZ M.D. Performed By: #### A 1C WTH eA, CMP, TSH3, CBC, T4F, CUU, ADDONUAPLUS, LIPID, T3F #### [facility] [address] Triiodothyronine (T3) Free [ Mass/volume] in Serum or PlasmaOrdered By: Margarette Duarte on 11-16-2023 Free T3 [Mass/Vol] 2.94 pg/mL 2.50-3.90 [facility] Urea nitrogen [Mass/volume] in Serum or PlasmaOrdered By: Margarette Duarte on 11-16-2023 Urea nitrogen [Mass/Vol] 17 mg/dL Normal 7-25 [facility] Comment on above: Order Comment: FASTI NG. JKW Performed By: #### A 1C WTH eA, CMP, TSH3, CBC, T4F, CUU, ADDONUAPLUS, LIPID, T3F #### [address] Urine Cultureon 11-16-2023 Bacteria identified Cx Nom (U) FASTING. JKW No Growth 2 Days PERFORMED BY: [place] [address] PATHOLOGIST ENGINEERING PSYCHOLOGIST BRYAN CORTEZ M.D. Normal [facility] Comment on above: Performed By: #### A 1C WTH eA, CMP, TSH3, CBC, T4F, CUU, ADDONUAPLUS, LIPID, T3F #### [address] Urine clarity by refractomet ry automatedOrdered By: Margarette Duarte on 11-16-2023 Clarity Refractometry automated (U) Clear Clear [facility] Urine culture routineOrdered By: Margarette Duarte on 11-16-2023 Bacteria identified Cx Nom (U) No Growth [address] [facility] Urine glucose measurement by automated test strip (mass/volume)Ordered By: Margarette Duarte on 11-16-2023 Glucose Auto test strip (U) [Mass/Vol] Normal mg/dL Normal [facility] Urine hemoglobin detection b y automated test stripOrdered By: Margarette Duarte on 11-16-2023 Hemoglobin Auto test strip Ql (U) Negative Negative [facility] Urine leukocyte esterase det ection by automated test stripOrdered By: Margarette Duarte on 11-16-2023 Leukocyte esterase Auto test strip Ql (U) Negative Negative [facility] Urine pH measurement by auto mated test stripOrdered By: Margarette Duarte on 11-16-2023 pH (U) 5.5 [pH] Normal 5.0-9.0 [facility] Comment on above: Order Comment: MICHAEL MARTINEZ JBranW Name Collection Type:: Clean-Voided Midstream Performed By: #### A 1C WTH eA, CMP, TSH3, CBC, T4F, CUU, ADDONUAPLUS, LIPID, T3F #### [facility] [address] Urobilinogen Auto test strip (U) [Mass/Vol]Ordered By: Margarette Duarte on 11-16-2023 Urobilinogen (U) [Mass/Vol] Normal mg/dL Normal [facility] Basophils Auto (Bld) [#/Vol] on 08-31-2023 Basophils (Bld) [#/Vol] 0.1 10 3/uL 0.0-0.1 [facility] Basophils/100 WBC Auto (Bld) on 08-31-2023 Basophils/100 WBC (Bld) 0.5 % 0.2-2.0 F [facility] Eosinophils/100 WBC Auto (Bl d)on 08-31-2023 Eosinophils/100 WBC (Bld) 3.7 % 0.9-7.0 [facility] Erythrocyte distribution wid th Auto (RBC) [Ratio]on 08-31-2023 Erythrocyte distribution width (RBC) [Ratio] 12.9 % 11.0-15.0 [facility] Estimated glomerular filtrat ion rate (GFR) non- Americanon 08-31-2023 GFR/1.73 sq M.predicted among non-blacks MDRD (S/P/Bld) [Vol rate/Area] mL/min/{1.73_m2} >=60 [facility] Hematocrit Auto (Bld) [Volum e fraction]on 08-31-2023 Hematocrit (Bld) [Volume fraction] 37.6 % 36.0-48.0 [facility] Hemoglobin [Mass/volume] in Bloodon 08-31-2023 Hemoglobin (Bld) [Mass/Vol] 12.6 g/dL 12.0-16.0 [facility] Laboratory - Chemistry and C hemistry - challengeon 08-31-2023 Calcium [Mass/Vol] 9.2 mg/dL 8.5-10.1 [facility] Chloride [Moles/Vol] 103 mmol/L 98-107 [facility] CO2 [Moles/Vol] 23.3 mmol/L 21.0-32.0 [facility] Creatinine [Mass/Vol] 0.79 mg/dL 0.55-1.02 [facility] GFR/1.73 sq M.predicted MDRD (S/P/Bld) [Vol rate/Area] mL/min/{1.73_m2} >=60 [facility] Glucose [Mass/Vol] 162 mg/dL 74-106 [facility] Potassium [Moles/Vol] 3.5 mmol/L 3.5-5.1 [facility] Sodium [Moles/Vol] 139 mmol/L 136-145 [facility] Urea nitrogen [Mass/Vol] 16.0 mg/dL 7.0-18.0 [facility] Urea nitrogen/Creatinine [Mass ratio] 20.3 mg/mg [facility] - Hematology and Cell countson 08-31-2023 ESR (Bld) [Velocity] 52 mm/h <=30 [facility] Immature granulocytes/100 WBC (Bld) 0.4 % 0.0-0.5 [facility] Leukocytes [#/volume] correc dano for nucleated erythrocytes in Blood by Automated counon 08-31-2023 WBC corrected for nucl RBC Auto (Bld) [#/Vol] 9.4 10 3/uL 4.0-11.0 [facility] Lymphocytes Auto (Bld) [#/Vo l]on 08-31-2023 Lymphocytes (Bld) [#/Vol] 1.6 10 3/uL 1.2-3.8 [facility] Lymphocytes/100 WBC Auto (Bl d)on 08-31-2023 Lymphocytes/100 WBC (Bld) 17.4 % 20.5-60.0 [facility] MCH Auto (RBC) [Entitic mass ]on 08-31-2023 MCH (RBC) [Entitic mass] 31.8 pg 26.7-34.0 [facility] MCHC Auto (RBC) [Mass/Vol]on 08-31-2023 MCHC (RBC) [Mass/Vol] 33.5 g/dL 29.9-35.2 [facility] MCV Auto (RBC) [Entitic vol] on 08-31-2023 MCV (RBC) [Entitic vol] 94.9 fL 81.0-99.0 F [facility] Monocytes Auto (Bld) [#/Vol] on 08-31-2023 Monocytes (Bld) [#/Vol] 0.8 10 3/uL 0.3-0.8 [facility] Monocytes/100 WBC Auto (Bld) on 08-31-2023 Monocytes/100 WBC (Bld) 8.4 % 1.7-12.0 F [facility] Neutrophils Auto (Bld) [#/Vo l]on 08-31-2023 Neutrophils (Bld) [#/Vol] 6.5 10 3/uL 1.4-6.5 [facility] Neutrophils/100 WBC Auto (Bl d)on 08-31-2023 Neutrophils/100 WBC (Bld) 69.6 % 43.0-75.0 [facility] No Panel Informationon 08-31 Eosinophils # (Auto) 0.4 10 3/uL 0.0-0.7 [facility] Immature Granulocyte # (Auto) 0.04 10 3/uL 0.00-0.03 [facility] Platelet mean volume Auto (B ld) [Entitic vol]on 08-31-2023 Platelet mean volume (Bld) [Entitic vol] 9.3 fL 9.5-13.5 [facility] Platelets Auto (Bld) [#/Vol] on 08-31-2023 Platelets (Bld) [#/Vol] 273 10 3/uL 150-450 [facility] RBC Auto (Bld) [#/Vol]on RBC (Bld) [#/Vol] 3.96 10 6/uL 4.20-5.40 [facility] Serum or plasma anion gap de terminationon 08-31-2023 Anion gap [Moles/Vol] 16.2 mmol/L Fi [facility] Alanine aminotransferase [En zymatic activity/volume] in Serum or PlasmaOrdered By: Margarette Duarte on 03-22-2023 ALT [Catalytic activity/Vol] 25 U/L 7-52 [facility] Albumin [Mass/volume] in Ser um or Plasma by Bromocresol green (BCG) dye binding methoOrdered By: Margarette Duarte on 03-22-2023 Albumin BCG dye [Mass/Vol] 4.3 g/dL 3.5-5.7 [facility] Alkaline phosphatase [Enzyma tic activity/volume] in Serum or PlasmaOrdered By: Margarette Duarte on 03-22-2023 ALP [Catalytic activity/Vol] 94 U/L 34-104 [facility] Aspartate aminotransferase [ Enzymatic activity/volume] in Serum or PlasmaOrdered By: Margarette Duarte on 03-22-2023 AST [Catalytic activity/Vol] 23 U/L 13-39 [facility] Basophils Auto (Bld) [#/Vol] Ordered By: Margarette Duarte on 03-22-2023 Basophils (Bld) [#/Vol] 0.0 10*3/uL 0.0-0.2 [facility] Basophils/100 WBC Auto (Bld) Ordered By: Margarette Duarte on 03-22-2023 Basophils/100 WBC (Bld) 0.7 % . F [facility] Bilirubin.total [Mass/volume ] in Serum or PlasmaOrdered By: Margarette Duarte on 03-22-2023 Bilirubin [Mass/Vol] 0.5 mg/dL 0.3-1.0 [facility] Calcium [Mass/volume] in Ser um or PlasmaOrdered By: Margarette Duarte on 03-22-2023 Calcium [Mass/Vol] 9.6 mg/dL 8.6-10.3 [facility] Carbon dioxide, total [Moles /volume] in Serum or PlasmaOrdered By: Margarette Duarte on 03-22-2023 CO2 [Moles/Vol] 26.9 mmol/L 21.0-31.0 [facility] Chloride [Moles/volume] in S may or PlasmaOrdered By: Margarette Duarte on 03-22-2023 Chloride [Moles/Vol] 105 mmol/L 98-107 [facility] Cholesterol [Mass/volume] in Serum or PlasmaOrdered By: Margarette Duarte on 03-22-2023 Cholesterol [Mass/Vol] 276 mg/dL 140-200 [facility] Comment on above: Chol less than 200 m g/dl low riskChol 201-239 mg/dl borderline riskChol 240 mg/dl and greater high risk Cholesterol in LDL Calc [Mas s/Vol]Ordered By: Margarette Duarte on 03-22-2023 Cholesterol in LDL [Mass/Vol] 180 mg/dL 0-100 [facility] Comment on above: LDL ATP III CLASSIFI CATIONLDL less than 100 mg/dL OptimalLDL 100-129 mg/dL Near or above optimalLDL 130-159 mg/dL Borderline highLDL 160-189 mg/dL HighLDL greater than 189 mg/dL Very high Cholesterol in VLDL Calc [Ma ss/Vol]Ordered By: Margarette Duarte on 03-22-2023 Cholesterol in VLDL [Mass/Vol] 24 mg/dL [facility] Creatinine [Mass/volume] in Serum or PlasmaOrdered By: Margarette Duarte on 03-22-2023 Creatinine [Mass/Vol] 0.91 mg/dL 0.60-1.20 [facility] Eosinophils Auto (Bld) [#/Vo l]Ordered By: Margarette Duarte on 03-22-2023 Eosinophils (Bld) [#/Vol] 0.2 10*3/uL 0.0-0.45 [facility] Eosinophils/100 WBC Auto (Bl d)Ordered By: Margarette Duarte on 03-22-2023 Eosinophils/100 WBC (Bld) 4.5 % . [facility] Erythrocyte distribution wid th Auto (RBC) [Ratio]Ordered By: Margarette Duarte on 03-22-2023 Erythrocyte distribution width (RBC) [Ratio] 13.4 % 11.9-15.3 [facility] Globulin Calc (S) [Mass/Vol] Ordered By: Margarette Duarte on 03-22-2023 Globulin (S) [Mass/Vol] 2.6 g/dL [facility] Glucose [Mass/volume] in Ser um or PlasmaOrdered By: Margarette Duarte on 03-22-2023 Glucose [Mass/Vol] 100 mg/dL 70-100 [facility] Comment on above: ADA recommended refe [...] from glycated hemoglobin (Bld) [Mass/Vol] 117 mg/dL [facility] Hematocrit Auto (Bld) [Volum e fraction]Ordered By: Margarette Duarte on 03-22-2023 Hematocrit (Bld) [Volume fraction] 38.3 % 34.0-46.4 [facility] Hemoglobin A1c percentageOrd ered By: Margarette Duarte on 03-22-2023 HbA1c (Bld) [Mass fraction] 5.7 % 4.3-5.6 [facility] Comment on above: Increased risk for d iabetes: 5.7 - 6.4diabetes: >6.4glycemic control for adults with diabetes: <7.0 Hemoglobin [Mass/volume] in BloodOrdered By: Margarette Duarte on 03-22-2023 Hemoglobin (Bld) [Mass/Vol] 13.1 g/dL 11.8-15.4 [facility] Leukocytes [#/volume] correc dano for nucleated erythrocytes in Blood by Automated counOrdered By: Margarette Duarte on 03-22-2023 WBC corrected for nucl RBC Auto (Bld) [#/Vol] 3.9 10*3/uL 3.8-11.6 [facility] Lymphocytes Auto (Bld) [#/Vo l]Ordered By: Margarette Duarte on 03-22-2023 Lymphocytes (Bld) [#/Vol] 1.5 10*3/uL 1.00-4.8 [facility] Lymphocytes/100 WBC Auto (Bl d)Ordered By: Margarette Duarte on 03-22-2023 Lymphocytes/100 WBC (Bld) 38.4 % . [facility] MCH Auto (RBC) [Entitic mass ]Ordered By: Margarette Duarte on 03-22-2023 MCH (RBC) [Entitic mass] 32.0 pg 24.7-34.3 [facility] MCHC Auto (RBC) [Mass/Vol]Or dered By: Margarette Duarte on 03-22-2023 MCHC (RBC) [Mass/Vol] 34.2 g/dL 32.0-35.0 [facility] MCV Auto (RBC) [Entitic vol] Ordered By: Margarette Duarte on 03-22-2023 MCV (RBC) [Entitic vol] 93.6 fL 80-100 F [facility] Monocytes Auto (Bld) [#/Vol] Ordered By: Margarette Duarte on 03-22-2023 Monocytes (Bld) [#/Vol] 0.4 10*3/uL 0.0-0.8 [facility] Monocytes/100 WBC Auto (Bld) Ordered By: Margarette Duarte on 03-22-2023 Monocytes/100 WBC (Bld) 10.4 % . F [facility] Neutrophils Auto (Bld) [#/Vo l]Ordered By: Margarette Duarte on 03-22-2023 Neutrophils (Bld) [#/Vol] 1.8 10*3/uL 1.8-7.7 [facility] Neutrophils/100 WBC Auto (Bl d)Ordered By: Margarette Duarte on 03-22-2023 Neutrophils/100 WBC (Bld) 46.0 % . [facility] No Panel InformationOrdered By: Margarette Duarte on 03-22-2023 Estimated GFR (CKD-EPI) > 60.0 mL/Min [facility] Creatinine Clearance (Chem N/A [facility] Nucleated erythrocytes [Pres ence] in Blood by Automated countOrdered By: Margarette Duarte on 03-22-2023 Nucleated RBC Auto Ql (Bld) 0.3 /100{WBC} 0-0.5 [facility] Platelet mean volume Auto (B ld) [Entitic vol]Ordered By: Margarette Duarte on 03-22-2023 Platelet mean volume (Bld) [Entitic vol] 8.1 fL 6.3-10.7 [facility] Platelets Auto (Bld) [#/Vol] Ordered By: Margarette Duarte on 03-22-2023 Platelets (Bld) [#/Vol] 225 10*3/uL 150-450 [facility] Potassium [Moles/volume] in Serum or PlasmaOrdered By: Margarette Duarte on 03-22-2023 Potassium [Moles/Vol] 4.2 mmol/L 3.5-5.1 [facility] Protein [Mass/volume] in Ser um or PlasmaOrdered By: Margarette Duarte on 03-22-2023 Protein [Mass/Vol] 6.9 g/dL 6.4-8.9 [facility] RBC Auto (Bld) [#/Vol]Ordere d By: Margarette Duarte on 03-22-2023 RBC (Bld) [#/Vol] 4.09 10*6/uL 3.60-5.00 [facility] Serum or plasma albumin/glob ulin mass ratioOrdered By: Margarette Duarte on 03-22-2023 Albumin/Globulin [Mass ratio] 1.7 {ratio} [facility] Serum or plasma anion gap de terminationOrdered By: Margarette Duarte on 03-22-2023 Anion gap [Moles/Vol] 13.3 mmol/L 6.0-15.0 [facility] Serum or plasma high density lipoprotein (HDL) cholesterol measurementOrdered By: Margarette Duarte on 03-22-2023 Cholesterol in HDL [Mass/Vol] 72 mg/dL 23-92 [facility] Comment on above: HDL CHOL ATP-III CLA SSIFICATION Cardiovascular RiskHDL > or equal to 60 mg/dL LOWHDL < 40 mg/dL HIGH Serum or plasma total choles terol/high density lipoprotein (HDL) cholesterol mass ratOrdered By: Margarette Duarte on 03-22-2023 Cholesterol.total/Ora sterol in HDL [Mass ratio] 3.8 {ratio} <5.0 [facility] Sodium [Moles/volume] in Ser um or PlasmaOrdered By: Margarette Duarte on 03-22-2023 Sodium [Moles/Vol] 141 mmol/L 136-145 [facility] Thyrotropin [Units/volume] i n Serum or PlasmaOrdered By: Margarette Duarte on 03-22-2023 TSH Qn 0.51 m[IU]/L 0.45-5.33 [facility] Thyroxine (T4) free [Mass/vo lume] in Serum or PlasmaOrdered By: Margarette Duarte on 03-22-2023 Free T4 [Mass/Vol] 0.98 ng/dL 0.61-1.12 [facility] Triglyceride [Mass/volume] i n Serum or PlasmaOrdered By: Margarette Duarte on 03-22-2023 Triglyceride [Mass/Vol] 122 mg/dL 0-149 F [facility] Comment on above: TRIG ATP III CLASSIF ICATIONTRIG less than 150 mg/dL NormalTRIG 150-199 mg/dL Borderline highTRIG 200-500 mg/dL High TRIG greater than 500 mg/dL Very highStandard traceable to the Center for Disease Conrtrol and Prevention (CDC) test method. Triiodothyronine (T3) Free [ Mass/volume] in Serum or PlasmaOrdered By: Margarette Duarte on 03-22-2023 Free T3 [Mass/Vol] 3.18 pg/mL 2.50-3.90 [facility] Urea nitrogen [Mass/volume] in Serum or PlasmaOrdered By: Margarette Duarte on 03-22-2023 Urea nitrogen [Mass/Vol] 21 mg/dL 7-25 [facility] WBC Auto (Bld) [#/Vol]Ordere d By: Margarette Duarte on 03-22-2023 WBC (Bld) [#/Vol] 3.9 10*3/uL 3.8-11.6 [facility] Alanine aminotransferase [En zymatic activity/volume] in Serum or PlasmaOrdered By: Margarette Duarte on 09-15-2022 ALT [Catalytic activity/Vol] 21 U/L 7-52 [facility] Albumin [Mass/volume] in Ser um or Plasma by Bromocresol green (BCG) dye binding methoOrdered By: Margarette Duarte on 09-15-2022 Albumin BCG dye [Mass/Vol] 4.4 g/dL 3.5-5.7 [facility] Alkaline phosphatase [Enzyma tic activity/volume] in Serum or PlasmaOrdered By: Margarette uDarte on 09-15-2022 ALP [Catalytic activity/Vol] 81 U/L 34-104 [facility] Aspartate aminotransferase [ Enzymatic activity/volume] in Serum or PlasmaOrdered By: Margarette Duarte on 09-15-2022 AST [Catalytic activity/Vol] 22 U/L 13-39 [facility] Automated erythrocytes count in urine sediment (number/area)Ordered By: Margarette Duarte on 09-15-2022 RBC Auto (Urine sed) [#/Area] 1-2 [HPF] 0-4 [facility] Automated leukocytes count i n urine sediment (number/area)Ordered By: Margarette Duarte on 09-15-2022 WBC Auto (Urine sed) [#/Area] 3-4 [HPF] 0-4 [facility] Basophils Auto (Bld) [#/Vol] Ordered By: Margarette Duarte on 09-15-2022 Basophils (Bld) [#/Vol] 0.0 10*3/uL 0.0-0.2 [facility] Basophils/100 WBC Auto (Bld) Ordered By: Margarette Duarte on 09-15-2022 Basophils/100 WBC (Bld) 0.7 % . F [facility] Bilirubin Test strip Ql (U)O rdered By: Margarette Duarte on 09-15-2022 Bilirubin Ql (U) Negative Negative [facility] Bilirubin.total [Mass/volume ] in Serum or PlasmaOrdered By: Margarette Duarte on 09-15-2022 Bilirubin [Mass/Vol] 0.5 mg/dL 0.3-1.0 [facility] Calcium [Mass/volume] in Ser um or PlasmaOrdered By: Margarette Duarte on 09-15-2022 Calcium [Mass/Vol] 9.5 mg/dL 8.6-10.3 [facility] Carbon dioxide, total [Moles /volume] in Serum or PlasmaOrdered By: Margarette Duarte on 09-15-2022 CO2 [Moles/Vol] 29.4 mmol/L 21.0-31.0 [facility] Chloride [Moles/volume] in S may or PlasmaOrdered By: Margarette Duarte on 09-15-2022 Chloride [Moles/Vol] 106 mmol/L 98-107 [facility] Cholesterol [Mass/volume] in Serum or PlasmaOrdered By: Margarette Duarte on 09-15-2022 Cholesterol [Mass/Vol] 262 mg/dL 140-200 [facility] Comment on above: Chol less than 200 m g/dl low riskChol 201-239 mg/dl borderline riskChol 240 mg/dl and greater high risk Cholesterol in LDL Calc [Mas s/Vol]Ordered By: Margarette Duarte on 09-15-2022 Cholesterol in LDL [Mass/Vol] 173 mg/dL 0-100 [facility] Comment on above: LDL ATP III CLASSIFI CATIONLDL less than 100 mg/dL OptimalLDL 100-129 mg/dL Near or above optimalLDL 130-159 mg/dL Borderline highLDL 160-189 mg/dL HighLDL greater than 189 mg/dL Very high Cholesterol in VLDL Calc [Ma ss/Vol]Ordered By: Margarette Duarte on 09-15-2022 Cholesterol in VLDL [Mass/Vol] 15 mg/dL [facility] Color Auto (U)Ordered By: Vivek Duarte on 09-15-2022 Color (U) Yellow Yellow [facility] Creatinine [Mass/volume] in Serum or PlasmaOrdered By: Margarette Duarte on 09-15-2022 Creatinine [Mass/Vol] 0.82 mg/dL 0.60-1.20 [facility] Eosinophils Auto (Bld) [#/Vo l]Ordered By: Margarette Duarte on 09-15-2022 Eosinophils (Bld) [#/Vol] 0.3 10*3/uL 0.0-0.45 [facility] Eosinophils/100 WBC Auto (Bl d)Ordered By: Margarette Duarte on 09-15-2022 Eosinophils/100 WBC (Bld) 8.1 % . [facility] Erythrocyte distribution wid th Auto (RBC) [Ratio]Ordered By: Margarette Duarte on 09-15-2022 Erythrocyte distribution width (RBC) [Ratio] 13.3 % 11.9-15.3 [facility] Globulin Calc (S) [Mass/Vol] Ordered By: Margarette Duarte on 09-15-2022 Globulin (S) [Mass/Vol] 2.5 g/dL [facility] Glucose [Mass/volume] in Ser um or PlasmaOrdered By: Margarette Duarte on 09-15-2022 Glucose [Mass/Vol] 101 mg/dL 74-109 [facility] Comment on above: ADA recommended refe [...] from glycated hemoglobin (Bld) [Mass/Vol] 117 mg/dL [facility] Hematocrit Auto (Bld) [Volum e fraction]Ordered By: Margarette Duarte on 09-15-2022 Hematocrit (Bld) [Volume fraction] 39.0 % 34.0-46.4 [facility] Hemoglobin A1c percentageOrd ered By: Margarette Duarte on 09-15-2022 HbA1c (Bld) [Mass fraction] 5.7 % 4.3-5.6 [facility] Comment on above: Increased risk for d iabetes: 5.7 - 6.4diabetes: >6.4glycemic control for adults with diabetes: <7.0 Hemoglobin [Mass/volume] in BloodOrdered By: Margarette Duarte on 09-15-2022 Hemoglobin (Bld) [Mass/Vol] 13.3 g/dL 11.8-15.4 [facility] Ketones Auto test strip (U) [Mass/Vol]Ordered By: Margarette Duarte on 09-15-2022 Ketones (U) [Mass/Vol] Trace Negative [facility] - Chemistry and C hemistry - challengeOrdered By: Margarette Duarte on 09-15-2022 GFR/1.73 sq M.predicted MDRD (S/P/Bld) [Vol rate/Area] mL/min/{1.73_m2} [facility] - UrinalysisOrder ed By: Margarette Duarte on 09-15-2022 Hyaline casts LM Ql (Urine sed) 0-8 [LPF] 0-8 [facility] Leukocytes [#/volume] correc dano for nucleated erythrocytes in Blood by Automated counOrdered By: Margarette Duarte on 09-15-2022 WBC corrected for nucl RBC Auto (Bld) [#/Vol] 4.1 10*3/uL 3.8-11.6 [facility] Lymphocytes Auto (Bld) [#/Vo l]Ordered By: Margarette Duarte on 09-15-2022 Lymphocytes (Bld) [#/Vol] 1.6 10*3/uL 1.00-4.8 [facility] Lymphocytes/100 WBC Auto (Bl d)Ordered By: Margarette Duarte on 09-15-2022 Lymphocytes/100 WBC (Bld) 38.0 % . [facility] MCH Auto (RBC) [Entitic mass ]Ordered By: Margarette Duarte on 09-15-2022 MCH (RBC) [Entitic mass] 31.6 pg 24.7-34.3 [facility] MCHC Auto (RBC) [Mass/Vol]Or dered By: Margarette Duarte on 09-15-2022 MCHC (RBC) [Mass/Vol] 34.2 g/dL 32.0-35.0 [facility] MCV Auto (RBC) [Entitic vol] Ordered By: Margarette Duarte on 09-15-2022 MCV (RBC) [Entitic vol] 92.5 fL 80-100 F [facility] Monocytes Auto (Bld) [#/Vol] Ordered By: Margarette Duarte on 09-15-2022 Monocytes (Bld) [#/Vol] 0.5 10*3/uL 0.0-0.8 [facility] Monocytes/100 WBC Auto (Bld) Ordered By: Margarette Duarte on 09-15-2022 Monocytes/100 WBC (Bld) 11.0 % . F [facility] Neutrophils Auto (Bld) [#/Vo l]Ordered By: Margarette Duarte on 09-15-2022 Neutrophils (Bld) [#/Vol] 1.8 10*3/uL 1.8-7.7 [facility] Neutrophils/100 WBC Auto (Bl d)Ordered By: Margarette Duarte on 09-15-2022 Neutrophils/100 WBC (Bld) 42.2 % . [facility] Nitrite Test strip Ql (U)Ord ered By: Margarette Duarte on 09-15-2022 Nitrite Ql (U) Negative Negative [facility] No Panel InformationOrdered By: Margarette Duarte on 09-15-2022 Pharmacy Creatinine Clearance (Chem N/A [facility] Nucleated erythrocytes [Pres ence] in Blood by Automated countOrdered By: Margarette Duarte on 09-15-2022 Nucleated RBC Auto Ql (Bld) 0.1 /100{WBC} 0-0.5 [facility] Platelet mean volume Auto (B ld) [Entitic vol]Ordered By: Margarette Duarte on 09-15-2022 Platelet mean volume (Bld) [Entitic vol] 7.8 fL 6.3-10.7 [facility] Platelets Auto (Bld) [#/Vol] Ordered By: Margarette Duarte on 09-15-2022 Platelets (Bld) [#/Vol] 241 10*3/uL 150-450 [facility] Potassium [Moles/volume] in Serum or PlasmaOrdered By: Margarette Duarte on 09-15-2022 Potassium [Moles/Vol] 4.2 mmol/L 3.5-5.1 [facility] Protein Auto test strip (U) [Mass/Vol]Ordered By: Margarette Duarte on 09-15-2022 Protein (U) [Mass/Vol] Trace mg/dL Negative [facility] Protein [Mass/volume] in Ser um or PlasmaOrdered By: Margarette Duarte on 09-15-2022 Protein [Mass/Vol] 6.9 g/dL 6.4-8.9 [facility] RBC Auto (Bld) [#/Vol]Ordere d By: Margarette Duatre on 09-15-2022 RBC (Bld) [#/Vol] 4.22 10*6/uL 3.60-5.00 [facility] Serum or plasma albumin/glob ulin mass ratioOrdered By: Margarette Duarte on 09-15-2022 Albumin/Globulin [Mass ratio] 1.8 {ratio} [facility] Serum or plasma anion gap de terminationOrdered By: Margarette Duarte on 09-15-2022 Anion gap [Moles/Vol] 9.8 mmol/L 6.0-15.0 [facility] Serum or plasma high density lipoprotein (HDL) cholesterol measurementOrdered By: Margarette Duarte on 09-15-2022 Cholesterol in HDL [Mass/Vol] 73 mg/dL 35-85 [facility] Comment on above: HDL CHOL ATP-III CLA SSIFICATION Cardiovascular RiskHDL > or equal to 60 mg/dL LOWHDL < 40 mg/dL HIGH Serum or plasma total choles terol/high density lipoprotein (HDL) cholesterol mass ratOrdered By: Margarette Duarte on 09-15-2022 Cholesterol.total/Ora sterol in HDL [Mass ratio] 3.6 {ratio} <5.0 [facility] Sodium [Moles/volume] in Ser um or PlasmaOrdered By: Margarette Duarte on 09-15-2022 Sodium [Moles/Vol] 141 mmol/L 136-145 [facility] Specific gravity Auto test s trip (U) [Rel density]Ordered By: Margarette Duarte on 09-15-2022 Specific gravity (U) [Rel density] 1.022 1.001-1.030 [facility] Squamous epithelial cells de tection in urine sediment by light microscopyOrdered By: Margarette Duarte on 09-15-2022 Epithelial cells.squamous LM Ql (Urine sed) 0-1 [HPF] 0-2 [facility] Thyrotropin [Units/volume] i n Serum or PlasmaOrdered By: Margarette Duarte on 09-15-2022 TSH Qn 0.12 m[IU]/L 0.45-5.33 [facility] Thyroxine (T4) free [Mass/vo lume] in Serum or PlasmaOrdered By: Margarette Duarte on 09-15-2022 Free T4 [Mass/Vol] 1.30 ng/dL 0.61-1.12 [facility] Triglyceride [Mass/volume] i n Serum or PlasmaOrdered By: Margarette Duarte on 09-15-2022 Triglyceride [Mass/Vol] 79 mg/dL 0-149 F [facility] Comment on above: TRIG ATP III CLASSIF ICATIONTRIG less than 150 mg/dL NormalTRIG 150-199 mg/dL Borderline highTRIG 200-500 mg/dL High TRIG greater than 500 mg/dL Very highStandard traceable to the Center for Disease Conrtrol and Prevention (CDC) test method. Triiodothyronine (T3) Free [ Mass/volume] in Serum or PlasmaOrdered By: Margarette Duarte on 09-15-2022 Free T3 [Mass/Vol] 3.21 pg/mL 2.50-3.90 [facility] Urea nitrogen [Mass/volume] in Serum or PlasmaOrdered By: Margarette Duarte on 09-15-2022 Urea nitrogen [Mass/Vol] 17 mg/dL 7-25 [facility] Urine bacteria detection by automated methodOrdered By: Margarette Duarte on 09-15-2022 Bacteria Auto Ql (U) None seen None Seen [facility] Urine clarity by refractomet ry automatedOrdered By: Margarette Duarte on 09-15-2022 Clarity Refractometry automated (U) Clear Clear [facility] Urine glucose measurement by automated test strip (mass/volume)Ordered By: Margarette Duarte on 09-15-2022 Glucose Auto test strip (U) [Mass/Vol] Normal mg/dL Normal [facility] Urine hemoglobin detection b y automated test stripOrdered By: Margarette Duarte on 09-15-2022 Hemoglobin Auto test strip Ql (U) Negative Negative [facility] Urine leukocyte esterase det ection by automated test stripOrdered By: Margarette Duarte on 09-15-2022 Leukocyte esterase Auto test strip Ql (U) 2+ Negative [facility] Urobilinogen Auto test strip (U) [Mass/Vol]Ordered By: Margarette Duarte on 09-15-2022 Urobilinogen (U) [Mass/Vol] Normal mg/dL Normal [facility] WBC Auto (Bld) [#/Vol]Ordere d By: Margarette Duarte on 09-15-2022 WBC (Bld) [#/Vol] 4.1 10*3/uL 3.8-11.6 [facility] pH Auto test strip (U)Ordere d By: Margarette Duarte on 09-15-2022 pH (U) 6.0 [pH] 5.0-9.0 [facility] Basophils Auto (Bld) [#/Vol] Ordered By: Margarette Duarte on 03-12-2022 Basophils (Bld) [#/Vol] 0.0 10*3/uL 0.0-0.2 [facility] Basophils/100 WBC Auto (Bld) Ordered By: Margarette Duarte on 03-12-2022 Basophils/100 WBC (Bld) 0.9 % . F [facility] Blood hemoglobin measurement (mass/volume)Ordered By: Margarette Duarte on 03-12-2022 Hemoglobin (Bld) [Mass/Vol] 13.5 g/dL 11.8-15.4 [facility] Blood leukocytes automated c ount (number/volume)Ordered By: Margarette Duarte on 03-12-2022 WBC (Bld) [#/Vol] 4.3 10*3/uL 4.5-11.0 [facility] Body fluid albumin measureme nt (mass/volume)Ordered By: Margarette Duarte on 03-12-2022 Albumin (Body fld) [Mass/Vol] 4.0 g/dL 3.2-5.5 [facility] Cholesterol [Mass/volume] in Serum or PlasmaOrdered By: Margarette Duarte on 03-12-2022 Cholesterol [Mass/Vol] 323 mg/dL 140-200 [facility] Comment on above: Chol less than 200 m g/dl low risk Chol 201-239 mg/dl borderline risk Chol 240 mg/dl and greater high risk Cholesterol in LDL Calc [Mas s/Vol]Ordered By: Margarette Duarte on 03-12-2022 Cholesterol in LDL [Mass/Vol] 228 mg/dL 0-100 [facility] Comment on above: LDL ATP III CLASSIFI CATION LDL less than 100 mg/dL Optimal LDL 100-129 mg/dL Near or above optimal LDL 130-159 mg/dL Borderline high LDL 160-189 mg/dL High LDL greater than 189 mg/dL Very high Cholesterol in VLDL Calc [Ma ss/Vol]Ordered By: Margarette Duarte on 03-12-2022 Cholesterol in VLDL [Mass/Vol] 18 mg/dL [facility] Creatinine and Glomerular fi ltration rate.predicted panel (S/P/Bld)Ordered By: Margarette Duarte on 03-12-2022 Creatinine [Mass/Vol] 0.90 mg/dL 0.44-1.03 [facility] Eosinophils Auto (Bld) [#/Vo l]Ordered By: Margarette Duarte on 03-12-2022 Eosinophils (Bld) [#/Vol] 0.2 10*3/uL 0.0-0.45 [facility] Eosinophils/100 WBC Auto (Bl d)Ordered By: Margarette Duarte on 03-12-2022 Eosinophils/100 WBC (Bld) 3.8 % . [facility] Erythrocyte distribution wid th Auto (RBC) [Ratio]Ordered By: Margarette Duarte on 03-12-2022 Erythrocyte distribution width (RBC) [Ratio] 13.7 % 11.9-15.3 [facility] Estimated glomerular filtrat ion rate (GFR) non- AmericanOrdered By: Margarette Duarte on 03-12-2022 GFR/1.73 sq M.predicted among non-blacks MDRD (S/P/Bld) [Vol rate/Area] > 60 mL/Min [facility] Globulin Calc (S) [Mass/Vol] Ordered By: Margarette Duarte on 03-12-2022 Globulin (S) [Mass/Vol] 2.8 g/dL F [facility] Glucose mean value [Mass/vol ume] in Blood Estimated from glycated hemoglobinOrdered By: Margarette Duarte on 03-12-2022 Average glucose Estimated from glycated hemoglobin (Bld) [Mass/Vol] 114 mg/dL [facility] Hematocrit Auto (Bld) [Volum e fraction]Ordered By: Margarette Duarte on 03-12-2022 Hematocrit (Bld) [Volume fraction] 40.1 % 34.0-46.4 [facility] Hemoglobin A1c percentageOrd ered By: Margarette Duarte on 03-12-2022 HbA1c (Bld) [Mass fraction] 5.6 % 4.3-5.6 [facility] Comment on above: Increased risk for d iabetes: 5.7 - 6.4 diabetes: >6.4 glycemic control for adults with diabetes: <7.0 Laboratory - Hematology and Cell countsOrdered By: Margarette Duarte on 03-12-2022 Nucleated RBC/100 WBC (Bld) [Ratio] 0.1 % 0-0.5 [facility] Lymphocytes Auto (Bld) [#/Vo l]Ordered By: Margarette Duarte on 03-12-2022 Lymphocytes (Bld) [#/Vol] 1.6 10*3/uL 1.00-4.8 [facility] Lymphocytes/100 WBC Auto (Bl d)Ordered By: Margarette Duarte on 03-12-2022 Lymphocytes/100 WBC (Bld) 36.9 % . [facility] MCH Auto (RBC) [Entitic mass ]Ordered By: Margarette Duarte on 03-12-2022 MCH (RBC) [Entitic mass] 32.0 pg 24.7-34.3 [facility] MCHC Auto (RBC) [Mass/Vol]Or dered By: Margarette Duarte on 03-12-2022 MCHC (RBC) [Mass/Vol] 33.6 g/dL 32.0-35.0 [facility] MCV Auto (RBC) [Entitic vol] Ordered By: Margarette Duarte on 03-12-2022 MCV (RBC) [Entitic vol] 95.1 fL 80-100 F [facility] Monocytes Auto (Bld) [#/Vol] Ordered By: Margarette Duarte on 03-12-2022 Monocytes (Bld) [#/Vol] 0.4 10*3/uL 0.0-0.8 [facility] Monocytes/100 WBC Auto (Bld) Ordered By: Margarette Duarte on 03-12-2022 Monocytes/100 WBC (Bld) 9.8 % . F [facility] Neutrophils Auto (Bld) [#/Vo l]Ordered By: Margarette Duarte on 03-12-2022 Neutrophils (Bld) [#/Vol] 2.1 10*3/uL 1.8-7.7 [facility] Neutrophils/100 WBC Auto (Bl d)Ordered By: Margarette Duarte on 03-12-2022 Neutrophils/100 WBC (Bld) 48.6 % . [facility] No Panel InformationOrdered By: Margarette Duarte on 03-12-2022 Estimated GFR () > 60 mL/Min [facility] Comment on above: GFR estimated refere nce range: According to KDOQI guidelines, <60 ml/min/1.73m2 is sufficient to diagnose a patient with chronic kidney disease. Pharmacy Creatinine Clearance (Chem N/A [facility] Platelet mean volume Auto (B ld) [Entitic vol]Ordered By: Margarette Duarte on 03-12-2022 Platelet mean volume (Bld) [Entitic vol] 7.7 fL 6.3-10.7 [facility] Platelets Auto (Bld) [#/Vol] Ordered By: Margarette Duarte on 03-12-2022 Platelets (Bld) [#/Vol] 291 10*3/uL 150-450 [facility] Protein [Mass/volume] in Ser um or PlasmaOrdered By: Margarette Duarte on 03-12-2022 Protein [Mass/Vol] 6.8 g/dL 6.1-7.9 [facility] RBC Auto (Bld) [#/Vol]Ordere d By: Margarette Duarte on 03-12-2022 RBC (Bld) [#/Vol] 4.21 10*6/uL 3.60-5.00 [facility] Serum or plasma alanine crenshaw otransferase measurement without P-5'-P (enzymatic activiOrdered By: Margarette Duarte on 03-12-2022 ALT No additional P-5'-P [Catalytic activity/Vol] 31 U/L 10-60 [facility] Serum or plasma albumin/glob ulin mass ratioOrdered By: Margarette Duarte on 03-12-2022 Albumin/Globulin [Mass ratio] 1.4 {ratio} [facility] Serum or plasma alkaline stephanie sphatase measurement (enzymatic activity/volume)Ordered By: Margarette Duarte on 03-12-2022 ALP [Catalytic activity/Vol] 83 U/L 32-92 [facility] Serum or plasma anion gap de terminationOrdered By: Margarette Duarte on 03-12-2022 Anion gap [Moles/Vol] 13.7 mmol/L 6.0-15.0 [facility] Serum or plasma aspartate am inotransferase measurement (enzymatic activity/volume)Ordered By: Margarette Duarte on 03-12-2022 AST [Catalytic activity/Vol] 29 U/L 10-42 [facility] Serum or plasma calcium jeannette urement (mass/volume)Ordered By: Margarette Duarte on 03-12-2022 Calcium [Mass/Vol] 9.7 mg/dL 8.2-10.2 [facility] Serum or plasma chloride júnior surement (moles/volume)Ordered By: Margarette Duarte on 03-12-2022 Chloride [Moles/Vol] 103 mmol/L 95-114 [facility] Serum or plasma glucose jeannette urement (mass/volume)Ordered By: Margarette Duarte on 03-12-2022 Glucose [Mass/Vol] 97 mg/dL 70-100 [facility] Comment on above: ADA recommended refe rence range Random Glucose Reference Range is dependent on time and content of last meal. Glucose of more than 200 mg/dL in a nonstressed, ambulatory subject supports the diagnosis of Diabetes Mellitus. Serum or plasma high density lipoprotein (HDL) cholesterol measurementOrdered By: Margarette Duarte on 03-12-2022 Cholesterol in HDL [Mass/Vol] 77 mg/dL 35-85 [facility] Comment on above: HDL CHOL ATP-III CLA SSIFICATION Cardiovascular Risk HDL > or equal to 60 mg/dL LOW HDL < 40 mg/dL HIGH Serum or plasma potassium me asurement (moles/volume)Ordered By: Margarette Duarte on 03-12-2022 Potassium [Moles/Vol] 4.5 mmol/L 3.5-5.1 [facility] Serum or plasma sodium measu rement (moles/volume)Ordered By: Margarette Duarte on 03-12-2022 Sodium [Moles/Vol] 138 mmol/L 136-146 [facility] Serum or plasma total biliru bin measurement (mass/volume)Ordered By: Margarette Duarte on 03-12-2022 Bilirubin [Mass/Vol] 0.8 mg/dL 0.3-1.2 [facility] Serum or plasma total carbon dioxide measurement (moles/volume)Ordered By: Margarette Duarte on 03-12-2022 CO2 [Moles/Vol] 25.8 mmol/L 22.0-30.0 [facility] Serum or plasma total choles terol/high density lipoprotein (HDL) cholesterol mass ratOrdered By: Margarette Duarte on 03-12-2022 Cholesterol.total/Ora sterol in HDL [Mass ratio] 4.2 {ratio} <5.0 [facility] Serum or plasma urea nitroge n measurement (mass/volume)Ordered By: Margarette Duarte on 03-12-2022 Urea nitrogen [Mass/Vol] 16 mg/dL 9-23 [facility] TSH DL <= 0.005 mIU/L QnOrde red By: Margarette Duarte on 03-12-2022 TSH Qn 10.73 m[IU]/L 0.45-5.33 [facility] Thyroxine (T4) free [Mass/vo lume] in Serum or PlasmaOrdered By: Margarette Duarte on 03-12-2022 Free T4 [Mass/Vol] 0.84 ng/dL 0.61-1.12 [facility] Triglyceride [Mass/volume] i n Serum or PlasmaOrdered By: Margarette Duarte on 03-12-2022 Triglyceride [Mass/Vol] 92 mg/dL 35-149 F [facility] Comment on above: TRIG ATP III [...] 03-12-2022 Free T3 [Mass/Vol] 2.88 pg/mL 2.50-3.90 [facility] Covid-19 PCR (CVDTB)on 08-05 SARS-CoV-2 (COVID-19) RNA ELSI+probe Ql (Unsp spec) Not detected Normal NOT DETECTED [facility] Comment on above: Result Comment: This test is not yet approved or cleared by the [place] FDA. When there are no FDA-approved or cleared tests available, and other criteria are met, FDA can make tests available under an emergency access mechanism called an Emergency Use Authorization (EUA). The EUA for this test is supported by the Parking Lot Spotter of Health and Human Service's (HHS's) declaration [...] consistent with SARS-CoV-2. Performed By: #### [facility] #### [facility] [address] [address] [address] Ayden WILLIAM Quick Testingon 2020 Result Positive [employer] Other [facility] CARDIAC STRESS/REST (BARBARA CARDIAL PERFUSION/MIBI)on 10-07-2020 [facility] CARDIAC STRESS/REST (MYOCARDIAL PERFUSION/MIBI) Patient Name: ZENY SEGOVIA STUDY: MYOCARDIAL PERFUSION STRESS TEST WITH EXERCISE Performing facility: [facility], [address] [place] [address], [address], [place], [place] [address] Provider: Boris Cortez MD PCP: Dr. Grecia Duarte Supervising provider: Manny Pantoja MD, [facility] INDICATION: Chest Pain; Difficulty breathing HISTORY: Gender: F; Age: 74 y/o ; Height: 149.86 cm; Weight: 58.0634916 kg. High Cholesterol; Family HX CAD; HTN; Palpitations; Chest Pain; SOB; Denies smoking. COMPARISON: Previous nuclear testing completed at [facility]. ACCESSION NUMBER(S): [id number]; [id number]; [id number] ORDERING CLINICIAN: BORIS CORTEZ TECHNIQUE: ONE DAY [...] Electronically signed by: MANNY PANTOJA MD Normal [facility] CARDIAC STRESS/REST INJE CTIONon 10-07-2020 [facility] CARDIAC STRESS/REST INJECTION Patient Name: ZENY SEGOVIA STUDY: MYOCARDIAL PERFUSION STRESS TEST WITH EXERCISE Performing facility: [facility], [address] [place] [address], [address], [address] Provider: Boris Cortez MD PCP: Dr. Grecia Duarte Supervising provider: Manny Pantoja MD, [facility] INDICATION: Chest Pain; Difficulty breathing HISTORY: Gender: F; Age: 74 y/o ; Height: 149.86 cm; Weight: 58.0217837 kg. High Cholesterol; Family HX CAD; HTN; Palpitations; Chest Pain; SOB; Denies smoking. COMPARISON: Previous nuclear testing completed at [facility]. ACCESSION NUMBER(S): [id number]; [id number]; [id number] ORDERING CLINICIAN: BORIS CORTEZ TECHNIQUE: ONE DAY [...] changes. Electronically signed by: MANNY PANTOJA MD [facility] PART 2 STRESS OR REST (N O CHARGE)on 10-07-2020 [facility] PART 2 STRESS OR REST (NO CHARGE) Patient Name: ZENY SEGOVIA STUDY: MYOCARDIAL PERFUSION STRESS TEST WITH EXERCISE Performing facility: [facility], [address] [place] [address], [address], [address] Provider: Boris Cortez MD PCP: Dr. Grecia Duarte Supervising provider: Manny Pantoja MD, [facility] INDICATION: Chest Pain; Difficulty breathing HISTORY: Gender: F; Age: 74 y/o ; Height: 149.86 cm; Weight: 58.3224252 kg. High Cholesterol; Family HX CAD; HTN; Palpitations; Chest Pain; SOB; Denies smoking. COMPARISON: Previous nuclear testing completed at [facility]. ACCESSION NUMBER(S): [id number]; [id number]; [id number] ORDERING CLINICIAN: BORIS CORTEZ TECHNIQUE: ONE DAY [...] Electronically signed by: MANNY PANTOJA MD Normal [facility] Vital Signs Date Time Vital Sign Value Performing Clinician Facility 03-20-2024 10:52-0400 Body height 151.77 cm DO Margarette Duarte Work Phone: [facility] 03-20-2024 10:52-0400 Body mass index (BMI) [Ratio] 26.2 kg/m2 DO Margarette Duarte Work Phone: [facility] 03-20-2024 10:52-0400 Body temperature 97.9 [degF] DO Margarette Duarte Work Phone: [facility] 03-20-2024 10:52-0400 Body weight 60.32 kg DO Margarette Duarte Work Phone: [facility] 03-20-2024 10:52-0400 Diastolic blood pressure 80 mm[Hg] DO Margarette Duarte Work Phone: [facility] 03-20-2024 10:52-0400 Heart rate 82 /min DO Margarette Duarte Work Phone: [facility] 03-20-2024 10:52-0400 Respiratory rate 18 /min DO Margarette Duarte Work Phone: [facility] 03-20-2024 10:52-0400 SaO2% (BldA) [Mass fraction] 97 % DO Margarette Duarte Work Phone: [facility] 03-20-2024 10:52-0400 Systolic blood pressure 174 mm[Hg] DO Margarette Duarte Work Phone: [facility] 09-16-2022 11:30-0400 Body height 151.77 cm Margarette Gerald Other [facility] [employer] Other 05-16-2021 16:45-0500 Body height 151.77 cm Bernardajethro Watson Other [employer] Other 05-16-2021 16:45-0500 Body temperature 96.6 [degF] Bernarda Shirley Other [employer] Other 05-16-2021 16:45-0500 Respiratory rate 18 /min Bernarda Watson Other [employer] Other 05-16-2021 16:45-0500 SaO2% (BldA) [Mass fraction] 98 % Bernarda Watson Other [employer] Other Encounters Encounter Date Encounter Type Care Provider Facility Start: 03-20-2024 End: 03-20-2024 ambulatory DO Margarette Duarte Work Phone: [facility] Work Phone: Start: 03-20-2024 End: 03-20-2024 Patient encounter procedure DO Margarette Duarte Work Phone: [facility] Work Phone: Start: 11-26-2023 End: 11-26-2023 ambulatory DO Margarette Duarte Work Phone: [facility] Work Phone: Start: 11-26-2023 End: 11-26-2023 Patient encounter procedure DO Margarette Gerald Work Phone: [facility] [place] Work Phone: Start: 11-16-2023 End: 11-16-2023 Patient encounter procedure DO [facility] Start: 11-16-2023 End: 11-16-2023 ambulatory Margarette Duarte Facility:[facility] Start: 08-31-2023 Non-patient / Non-visit DO Richard mario Duarte Work Phone: [facility] [employer] Work Phone: Start: 08-05-2023 End: 08-05-2023 ambulatory Margarette Duarte Other [employer] Other Start: 08-05-2023 Telephone encounter Margarette Duarte [facility] Start: 03-25-2023 End: 03-25-2023 ambulatory Margarette Duarte Other [employer] Other Start: 03-25-2023 Telephone encounter Margarette Duarte [facility] [place] Start: 03-22-2023 End: 03-22-2023 ambulatory DO Margarette Duarte Work Phone: [facility] Work Phone: Start: 03-22-2023 End: 03-22-2023 Patient encounter procedure DO Margarette Duarte Work Phone: [facility] Start: 10-28-2022 End: 10-28-2022 ambulatory Margarette Duarte Other [employer] Other Start: 10-28-2022 Telephone encounter Margarette Duarte [facility] [place] Start: 09-17-2022 End: 09-17-2022 ambulatory Margarette Duarte Other [employer] Other Start: 09-17-2022 Telephone encounter Margarette Duarte [facility] [place] Start: 09-16-2022 End: 09-16-2022 ambulatory Margarette Duarte Other [employer] Other Start: 09-16-2022 Telephone encounter Margarette Duarte [facility] Start: 09-15-2022 End: 09-15-2022 ambulatory DO Margarette Duarte Work Phone: [facility] Work Phone: Start: 09-15-2022 End: 09-15-2022 Patient encounter procedure DO Margarette Duarte Work Phone: [facility] Start: 09-10-2022 End: 09-10-2022 ambulatory Margarette Duarte Other [employer] Other Start: 09-10-2022 Encounter for antibo dy response examination Margarette Duarte [facility] [place] Start: 09-10-2022 Telephone encounter Margarette Duarte [facility] Start: 06-01-2022 End: 06-01-2022 ambulatory Margarette Duarte Other [employer] Other Start: 06-01-2022 Telephone encounter Margarette Duarte [facility] Start: 03-25-2022 End: 03-25-2022 Patient encounter procedure DO Margarette Duarte Work Phone: [facility] Start: 03-17-2022 End: 03-17-2022 ambulatory Margarette Duarte Other [employer] Other Start: 03-17-2022 Telephone [facility] Start: 03-12-2022 End: 03-12-2022 Patient encounter procedure DO Margarette Duarte Work Phone: [facility] Start: 01-30-2022 End: 01-30-2022 ambulatory Margarette Duarte Other [employer] Other Start: 01-30-2022 Telephone encounter Margarette Duarte [facility] [place] Start: 08-21-2021 End: 08-22-[address] MARGARETTE DUARTE Facility: Start: 08-19-2021 End: 08-19-2021 ambulatory Margarette Duarte Other [employer] Other Start: 08-19-2021 Telephone encounter Margarette Duarte [facility] Start: 07-15-2021 End: 07-15-2021 ambulatory Margarette Duarte Other [employer] Other Start: 07-15-2021 Telephone encounter Margarette Duarte [facility] Start: 07-09-2021 End: 07-09-2021 ambulatory Margarette Duarte Other [employer] Other Start: 07-09-2021 Encounter for antibo dy response examination Margarette Duarte [facility] Start: 07-09-2021 Telephone encounter Margarette Duarte [facility] [place] Start: 05-19-2021 End: 05-19-2021 ambulatory Margarette Duarte Other [employer] Other Start: 05-19-2021 Telephone encounter Margarette Duarte [facility] [place] Start: 05-16-2021 End: 05-16-2021 ambulatory Margarette Duatre Other [employer] Other Start: 05-16-2021 Office outpatient vi sit 15 minutes Bernarda Watson [facility] [place] Start: 05-16-2021 Telephone encounter Margarette Duarte [facility] Start: 11-25-2017 Ambulatory BROIS CORTEZ Faci lity:[id number] Start: 11-25-2017 Ambulatory Margarette Duarte Facility :[id number] Procedures Date Procedure Procedure Detail Performing Clinician Start: 03-20-2024 X-ray of left foot DO Don Duarte Work Phone: Start: 11-16-2023 Urine culture DO Margarette Duarte Work Phone: Plan of Treatment Date Care Activity Detail Author Start: 09-15-2022 Bacteria identified in Urine by Culture [facility] Start: 03-25-2022 [facility] Work Phone: Apolipoprotein B [Ma ss/volume] in Serum or Plasma [facility] Work Phone: Beta lipoprotein sub particle measurement [facility] Work Phone: Cholesterol [Mass/vo lume] in Serum or Plasma [facility] Work Phone: Cholesterol in HDL [ Mass/volume] in Serum or Plasma [facility] Work Phone: Comprehensive metabo lic 2000 panel - Serum or Plasma [facility] Lipoprotein.beta.sub particle.smal l [Moles/volume] in Serum or Plasma [facility] Work Phone: Low density lipoprot ein cholesterol measurement [facility] Work Phone: Organ or system related test [facility] Work Phone: Triglyceride [Mass/v olume] in Serum or Plasma [facility] Work Phone: [facility] Immunizations Immunization Date Immunization Notes Care Provider Aleyda collazo 05-15-2016 influenza, seasonal, injectable DO Margarette Duarte Work Phone: [facility] 05-15-2016 influenza, seasonal, injectable, preservative free Margarette Duarte Other [facility] 04-07-2016 influenza, high dose seasonal, preservative-free DO Margarette Duarte Work Phone: [facility] 04-10-2015 influenza, seasonal, injectable, preservative free DO Margarette Duarte Work Phone: [facility] 04-07-2014 pneumococcal polysaccharide vaccine, 23 valent DO Margarette Duarte Work Phone: [facility] 04-07-2012 influenza, high dose seasonal, preservative-free Margarette Duarte Other [employer] Other 04-07-2012 influenza virus vaccine, unspecified formulation DO Margarette Duarte Work Phone: [facility] Payers Date Payer Category Payer Private Health Insurance [id number] 2023 Private Health Insurance [id number] 2023 Self-pay [id number] 2022 Medicare [id number] 1958 Medicare [id number] 1945 Unknown [id number] Medicare Medicare X [id number] Private Health Insurance [id number] Unknown [id number] Unknown [id number] Social History Date Type Detail Facility Unknown if ever smoked [employer] Other Sex Assigned At Sex Assigned At Bir th [employer] Other Start: 09-17-2017 End: 11-26-2023 Tobacco smoking status NHIS Never smoked tobacco (finding) [facility] Start: 1945 Sex Assigned At Female F [facility] Clinical Notes 04-07-2011 to 08-05-2023 Note Date & Type Note Facility 08-05-2023 Evaluation note Encounter Date Diagnosis Assessment Notes Aug, Asthma (ICD-10 - J45.909) [facility] Other 09-21-2023 History general Narrative - Reported* [...] removed 05-18-14 Surgical History [facility] stints - [facility] 03/04/15 Surgical History removed blockage in uterer - [facility] 06/26/15 Surgical History cystoscopy - Irina Stiff 09/21/17 Surgical History wisdom tooth removed 11/22/17 Surgical History heart [facility] 11/25/17 Surgical History colonoscopy - Dr Bland es / needs repeat in 5 years 07/2019 Hospitalization History see surgical history [facility] [employer] Other 04-26-2023 Evaluation note* Encounter Date Diagnosis Assessment Notes Treatment Notes Treatment Clinical Notes Oct, Hypertension (ICD-10 - I10) [facility] Other 04-26-2023 History general Narrative - Reported* [...] removed 05-18-14 [facility]15 Surgical History removed blockage in uterer [facility] 06/26/15 Surgical History cystoscopy - Ddr Stiff 09/21/17 Surgical History wisdom tooth removed 11/22/17 Surgical History heart [facility] 11/25/17 Surgical History colonoscopy - Dr Baldo sinclair / needs repeat in 5 years 07/2019 Hospitalization History see surgical history [employer] [employer] Other 03-21-2023 History general Narrative - Reported* Type Description Date Medical History 2008 Mammogram Medical History 2009 Colonoscopy Done Medical History 2005 Stress Test Medical History Dexa Scan 12-10 Repeat in 06-15 Medical History Flu Shot 04-07-11 Medical History Colonoscopy 2010 Dr. Clayton (2 polyps) repeat in 1 year Medical [facility] History DEXA 11-25-15 repeat in 2 [...] polyp removed 05-18-14 [facility] 03/04/15 Surgical History removed blockage in uterer [facility] 06/26/15 Surgical History cystoscopy - Ddr Stiff 09/21/17 Surgical History wisdom tooth removed 11/22/17 Surgical History heart [facility] 11/25/17 Surgical History colonoscopy - Dr Baldo sinclair / needs repeat in 5 years 07/2019 Hospitalization History see surgical [employer] Other 03-15-2023 Evaluation note* Encounter Date Diagnosis [...] a mammogram. 10:46 AM - 11:00 AM [employer] Other 03-09-2023 Evaluation note* Encounter Date Diagnosis Assessment Notes Treatment Notes Treatment Clinical Notes Sep, Immunity status testing (ICD-10 - Z01.84) [facility] Other 09-13-2022 Evaluation note* Encounter Date Diagnosis [...] Mar, Other 9:25 AM - 9:44 AM [employer] Other 07-29-2022 History general Narrative - Reported* [...] removed 05-18-14 Surgical History [facility] stints - [facility] 03/04/15 Surgical History removed blockage in uterer - [facility] 06/26/15 Surgical History cystoscopy - Ddr Stiff 09/21/17 Surgical History wisdom tooth removed 11/22/17 Surgical History heart [facility] 11/25/17 Surgical History colonoscopy - Dr Bland es / needs repeat in 5 years 07/2019 Hospitalization History see surgical history [facility] Other 02-15-2022 Evaluation note* Encounter Date Diagnosis Assessment Notes Treatment Notes Treatment Clinical Notes Aug, Close exposure to COVID-19 virus (ICD-10 - Z20.828) [employer] [employer] Other 01-11-2022 Evaluation note* Encounter Date Diagnosis Assessment Notes Treatment Notes Treatment Clinical Notes Jul, Asthma (ICD-10 - J45.909) [facility] [employer] Other 01-05-2022 Evaluation note* Encounter Date Diagnosis Assessment Notes Treatment Notes Treatment Clinical Notes Jul, Immunity status testing (ICD-10 - Z01.84) [facility] Other 11-15-2021 Evaluation note* Encounter Date Diagnosis Assessment Notes Treatment Notes Treatment Clinical Notes May, Allergic rhinitis (ICD-10 - J30.9) [facility] Other 10-04-2011 History general Narrative - Reported* Type Description Date Medical History 2009 Mammogram Medical History 2009 Colonoscopy Done Medical History 2005 Stress Test Medical History Dexa Scan 12-10 Repeat in 06-15 Medical History Flu Shot 04-07-11 Medical History Colonoscopy 2010 Dr. Clayton (2 polyps) repeat in 1 year Medical History [facility] Medical History DEXA 11-25-15 repeat in 2 [...] History removed blockage in uterer - Cl [facility] 06/26/15 Surgical History cystoscopy - Ddr Stiff 09/21/17 Surgical History wisdom tooth removed 11/22/17 Surgical History heart [facility] 11/25/17 Surgical History colonoscopy - Dr Bland es / needs repeat in 5 years 07/2019 Hospitalization History see surgical history [employer] Other Evaluation noteNo InformationNort [employer] Other Evaluation noteNort [employer] Other Evaluation noteNo assessment information available [facility] Work Phone: Evaluation note* Diagnosis Onset Date Resolution Status HTN (hypertension) acute Hyperglycemia acute Hyperlipidemia acute Hypothyroidism acute [facility] Work Phone: Evaluation note* Diagnosis Onset Date Resolution Status Sprain of left foot acute [facility] Work Phone: History general [facility] - [facility] Other Summary Purpose Family History No Family [...] section and content) DATE CREATED AUTHOR 12/22/2017 [facility] DATE CREATED AUTHOR AUTHOR'S ORGANIZ ATION 12/22/2017 [facility] DATE CREATED AUTHOR AUTHOR'S ORGANIZ ATION [facility] DATE CREATED AUTHOR AUTHOR'S ORGANIZ ATION 08/23/2021 [facility] DATE CREATED AUTHOR AUTHOR'S ORGANIZ ATION 03/24/2024 [facility] REASON FOR VISIT (unrecogniz ed [...] BE BASED ON THE PRIMARY CLINICAL RECORDS. [facility] [employer] [facility]. provides no warranty or guarantee of the accuracy or completeness of information in this document.
--- NOTE | 2024-03-27 11:18 | CA_ITS ---
Patient Name: HIRO SEGOVIA MR#: [id number] : 1945 Exam Date: 03/27/2024 Ordering Doctor: SHAIKH Migue MANRIQUE . ECHOCARDIOGRAM REPORT PROCEDURE: CA ECHO DOPPLER COMPLETE INDICATIONS: cva COMPARISON: None. DESCRIPTION: COMPLETE ECHOCARDIOGRAM Real-time transthoracic echocardiography with 2D, M-mode, spectral and color flow Doppler performed. QUALITY: Technical quality was good. LEFT VENTRICLE: Normal chamber size. Left ventricular wall thickness appears increased. LV EF: Global left ventricular systolic function is hyperdynamic; visually estimated ejection fraction is 70 to 75%. No obvious wall motion abnormalities DIASTOLIC: Diastolic function is indeterminate. ATRIAL SEPTUM: Agitated saline contrast does not reveal an intra-cardiac shunt. LEFT ATRIUM: Normal chamber size. RIGHT ATRIUM: Normal chamber size. A prominent Eustachian valve is seen. RIGHT VENTRICLE: Normal chamber size. Normal right ventricular systolic function. TRICUSPID VALVE: Normal mobility and thickness. No stenosis with mild regurgitation. Mild pulmonary hypertension. RVSP 37mmHg MITRAL VALVE: Normal mobility and thickness. No evidence of mitral valve stenosis. There is no mitral annular calcification. Trivial mitral regurgitation. AORTIC VALVE: Normal trileaflet appearance. No visible sclerosis. Normal leaflet mobility. No evidence of aortic valve stenosis. No aortic regurgitation. AORTIC ROOT: Normal diameter and appearance. PULMONIC VALVE: Normal thickness and mobility. No stenosis. Mild regurgitation. PERICARDIUM: No evidence of pericardial effusion. IVC: Collapses with inspirations. Normal size. CONCLUSION: 1. Global left ventricular systolic function is hyperdynamic; visually estimated ejection fraction is 70 to 75% 2. Normal right ventricular size and systolic function 3. Left ventricular wall thickness is increased 4. Diastolic function is indeterminate 5. Suboptimal agitated saline injections reveal no intracardiac shunt 6. Mild tricuspid regurgitation 7. Mildly elevated right ventricular systolic pressure; RVSP 37 mmHg 8. Mild pulmonic regurg Adult Echocardiography Procedure Report Left Ventricle LVEDD (3.7 - 5.6 cm): 4.37 cm LVESD (2.2 - 4.0 cm): 2.94 cm LVIVS thickness (0.6 - 1.2 cm): 0.86 cm LVPW thickness (0.5 - 1.0 cm): 0.82 cm e': 0.04 m/s E - e': 15.76 LVOT Max Gradient: 4.67 mm[Hg], 4.21 mm[Hg], 3.91 mm[Hg] LVOT Area (cm2): 1.03 m/s Peak Velocity (LVOT): 1.08 m/s, 1.03 m/s, 0.99 m/s Mean Velocity (LVOT): 0.70 m/s LVOT Diameter 1.74 cm Left Ventricular Ejection Fraction: 59.43 % Left Atrium LA Volume Index (2D A2C): 28.91 ml/m2 Left Atrium Systolic Dimension: 2.91 cm Mitral Valve MV E to A Ratio: 0.54 Mitral Valve A-Wave Peak Velocity: 1.27 m/s Mitral Valve E-Wave Peak Velocity: 0.69 m/s Right Ventricle RV Internal Diastolic Dimension: 3.34 cm Aorta AO Root Diam: 2.81 cm Ascending Ao Diam: 2.79 cm Aortic Valve AoV Area (Peak Dharmesh): 1.48 cm2, 1.57 cm2, 1.46 cm2 AoV Area (VTI): 1.82 cm2, 1.84 cm2, 1.87 cm2 Peak Velocity(Antegrade Flow): 1.64 m/s, 1.67 m/s Peak Gradient(Antegrade Flow): 10.72 mm[Hg], 11.20 mm[Hg] Mean Velocity(Antegrade Flow): 1.06 m/s, 1.07 m/s Mean Gradient(Antegrade Flow): 5.22 mm[Hg], 5.41 mm[Hg] Velocity Time Integral: 24.60 cm, 24.43 cm Tricuspid Valve Peak Velocity (Regurgitant Flow): 2.69 m/s, 2.76 m/s, 2.92 m/s, 2.63 m/s, 2.93 m/s Pulmonic Valve Mean Gradient: 4.89 mm[Hg], 5.18 mm[Hg], 3.69 mm[Hg], 3.98 mm[Hg] Mean Velocity: 1.03 m/s, 1.09 m/s, 0.89 m/s, 0.94 m/s Peak Velocity: 1.40 m/s Peak Gradient: 9.27 mm[Hg], 8.32 mm[Hg], 7.03 mm[Hg], 7.03 mm[Hg] Right Atrium Right Atrium Systolic Pressure: 47.94 ml, 47.94 ml Dictated by: Gardenia Diaz M.D. on 03/29/2024 at 08:49 Approved by: Gardenia Diaz M.D. on 03/29/2024 at 08:54
--- NOTE | 2024-03-27 11:18 | MR_ITS ---
The [address] [address] Patient Name: HIRO SEGOVIA MRN: [facility]:[id number] date: 1945 Sex: F Assigned Patient Location: MS Current Patient Location: [place] Accession/Order Number: [id number] Exam Date: 03/27/2024 11:54 Report Date: 03/27/2024 12:58 At the request of: SHAIKH HILARIA Procedure: MR head/brain wo con EXAM: MR head/brain wo con HISTORY: CVA no evidence and tingling on left side last week, since resolved. COMPARISON: CTA head and neck and CT head 03/27/2024. TECHNIQUE: Multiplanar multisequence MR imaging of the brain was performed without intravenous contrast. FINDINGS: Calvarium/skull base: No focal marrow replacing lesion suggestive of neoplasm. Orbits: Grossly unremarkable. Paranasal sinuses: Imaged portions clear Brain: Extremely subtle increased DWI signal with isointense ADC signal involving the lateral margin of a otherwise probable chronic lacunar infarct involving the anterior right basal ganglia with minimal associated FLAIR hyperintensity. There is intrinsic T1 hyperintensity seen involving this location along the right basal ganglia with mild susceptibility artifact potentially relating to sequela of prior hemorrhage without increased density seen in this location on CT head performed earlier the same day. There is no surrounding edema or local mass effect. There or mild superimposed scattered T2 FLAIR signal hyperintensities involving the supratentorial white matter. Remote lacunar infarct of the right thalamus. No or hydrocephalus. Grossly normal flow-related signal in the major intracranial arteries and dural sinuses. MR/MR head/brain wo con IMPRESSION: Subtle subcentimeter likely subacute infarct involving the lateral aspect of a otherwise probable chronic potentially hemorrhagic infarct involving the right basal ganglia. There is intrinsic T1 hyperintensity corresponding with an area of susceptibility artifact involving the more chronic appearing location without hyperdensity seen on CT head from earlier the same day to suggest acute hemorrhagic infarct. There is no surrounding edema and local mass effect. Need for continued attention on follow-up to be determined on a clinical basis. Report was submitted to the clinical operation support team for expedited review by the provider. Electronically authenticated by: YANI SAWANT Date: 03/27/2024 12:58
[2024-03-27 11:43] LABS: Estimated Average Glucose 111 mg/dL; Glycohemoglobin A1C 5.5 % (4.5-6.2)
--- NOTE | 2024-03-27 11:43 | P.HP_ITS ---
HPI H&P: HPI History of Present Illness Chief complaint: cva symptoms, TIA, HYPERTENSIVE EMERGENCY Narrative: 78-year-old female presented to ER with left facial numbness left upper extremity and lower extremity numbness that lasted for about a minute or 2 and resolved quickly after. She had similar symptoms past Wednesday that resolved within a minute or 2. She has no prior history of stroke. She has no active complaints to offer. She came to ED for further evaluation because she was concerned about possibly having a stroke. Upon arrival her blood pressure was as high as 220/120 that improved with IV hydralazine. She had a normal CT head along with CTA head and neck that she did not show any significant atherosclerotic disease. Patient has no active symptoms to offr currently. She is being admitted to work up for stroke. 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 (ICD-10) Skin cancer ?C44.90 - Unspecified malignant neoplasm of skin, unspecified (ICD-10) Colon cancer ?C18.9 - Malignant neoplasm of colon, unspecified (ICD-10) Uterine cancer ?C55 - Malignant neoplasm of uterus, part unspecified (ICD-10) Hypertension ?I10 - Essential (primary) hypertension (ICD-10) Surgical History (Updated 03/27/24 @ 10:51 by Marylou Ledesma) Tubal ligation status ?Z98.51 - Tubal ligation status (ICD-10) H/O abdominal hysterectomy ?Z90.710 - Acquired absence of both cervix and uterus (ICD-10) Hx of tonsillectomy ?Z90.89 - Acquired absence of other organs (ICD-10) History of colon resection ?Z90.49 - Acquired absence of other specified parts of digestive tract (ICD- 10) Family History (Updated 03/27/24 @ 10:51 by Marylou Ledesma) Mother Family history of CHF (congestive heart failure) Family history of cancer Family history of hypertension Father Family history of cancer Family history of hypertension Family history of myocardial infarction Social History (Updated 03/27/24 @ 11:30 by Marylou Ledesma) Within the past year, how often did you have a drink containing alcohol: never Within the past year, how often did you have six or more drinks on one occasion: never Score interpretation: A score less than 3 is consistent with normal alcohol consumption. Smoking status: Never smoker Non-prescribed substance use: cannabis (any form) Previous occupational history: [employer] Highest level of school completed/degree received: high school graduate Are you now , , , , never or living with a partner: In a typical week, how many times do you talk on the telephone with family, friends, or neighbors: 3 or more times per week How often do you get together with friends or relatives: 3 or more times per week How often do you attend sabianist or mormonism services: 4 or more times per year Do you belong to any clubs or organizations such as sabianist groups unions, [employer] or athletic groups, or school groups: no Total score: 3 Score interpretation: A score of greater than or equal to 2 indicates the lowest level of social isolation. Little interest or pleasure in doing things: not at all Feeling down, depressed, or hopeless: not at all Feel stressed/tense/nervous/anxious/difficulty sleeping: not at all Do you think of yourself as: straight/heterosexual Gender Identity: female Meds Home Medications and Allergies Home Medications ?Medication ?Instructions ?Recorded ?Confirmed ?Type levothyroxine 88 mcg tablet 88 mcg PO DAILY 03/27/24 03/27/24 History losartan 50 mg tablet 50 mg PO DAILY 03/27/24 03/27/24 History meloxicam 7.5 mg tablet 7.5 mg PO DAILY 03/27/24 03/27/24 History triamcinolone acetonide 0.1 % 1 applic topical BID 03/27/24 03/27/24 History topical cream Allergies Allergy/AdvReac Type Severity Reaction Status Date / Time shellfish derived AdvReac Severe Anaphylaxis Verified 03/27/24 08:23 Exam Constitutional Vital Signs, click to edit/add: Last Vital Signs Temp 97.6 F 03/27/24 10:54 Pulse 126 H 03/27/24 11:27 Resp 18 03/27/24 10:54 BP 157/78 H 03/27/24 10:54 Pulse Ox 96 03/27/24 10:54 O2 Del Method Room Air 03/27/24 10:54 Documenting provider has reviewed patient's vital signs: yes Common normals: no apparent distress and oriented x3 General appearance: cooperative HENMT Common normals: normocephalic and head/scalp atraumatic Head and scalp: normocephalic and atraumatic Eye Common normals: conjunctivae normal and no scleral icterus Conjunctiva: conjunctiva(e) normal Respiratory Common normals: normal respiratory effort and clear to auscultation bilaterally Effort & inspection: able to speak in complete sentences Auscultation: clear to auscultation bilaterally Cardio Common normals: regular rate, S1 normal heart sound and S2 normal heart sound Rate: regular rate Heart sounds: S1 normal and S2 normal GI Common normals: Normal to inspection, nondistended, normoactive bowel sounds present, soft to palpation, non-tender and no hepatosplenomegaly Palpation: soft and no hepatosplenomegaly Extremity Common normals: no clubbing, cyanosis or edema Neuro Common normals: oriented x3, moves all extremities and no focal motor deficits Psych Common normals: mental status grossly normal, denies hallucinations, denies homicidal ideation and denies suicidal ideation Results Labs Labs: Short CBC 03/27/24 Range/Units 08:12 WBC 5.8 (4.0-11.0) 10^3/uL Hgb 13.3 (12.0-16.0) g/dL Hct 39.7 (36.0-48.0) % Plt Count 249 (150-450) 10^3/uL BMP 03/27/24 08:12 Sodium 138 Potassium 3.9 Chloride 103 Carbon Dioxide 28.3 BUN 21.0 H Creatinine 0.94 Glucose 113 H Calcium 9.6 Liver Function 03/27/24 Range/Units 08:12 Total Bilirubin 0.5 (0.2-1.0) mg/dL AST 24 (15-37) U/L ALT 28 (14-59) U/L Alkaline Phosphatase 102 (46-116) U/L Albumin 3.8 (3.4-5.0) g/dL Assessment and Plan Assessment and Plan (1) Hypertensive emergency: Assessment and Plan: BP poorly controlled at baseline as per patient. Presented with BP as high as 220/120. Will allow permissive HTN. No IV drugs unless BP is over 180/100 Increase Losartan to 100 mg. She uses 50 mg at home. (2) Acute ischemic stroke: Assessment and Plan: Acute ischemic/lacunar stroke with hemorrhagic transformation. No mass effect or brain edema. PT/OT eval No large vessel occlusion/thrombus/stenosis on CTA head/neck Normal SR, no events on tele. No prior hx of Afib. Awaiting tele stroke consultation ECHO pending. C/w ASA. A1C is normal. Lipid panel revealed LDL of 240, Likely has familial hypercholesterolemia. Started on Lipitor 40 mg. (3) HLD (hyperlipidemia): Assessment and Plan: LDL 240, Not on lipid lowering therapy from prior. Started on Lipitor 40. Will need Lipid recheck in 4-6 weeks. Qualifiers: Hyperlipidemia type: familial hypercholesterolemia Qualified Code(s): E78.01 - Familial hypercholesterolemia (4) Hypothyroid: Assessment and Plan: TSH above goal. Levothyroxine increased to 112 mcg. Will need TSH rechecked in 6 weeks. Qualifiers: Hypothyroidism type: unspecified Qualified Code(s): E03.9 - Hypothyroidism, unspecified
[2024-03-27 11:45] LABS: Chol HDL Ratio 4.4; Cholesterol 349 mg/dL (<=200); HDL Cholesterol 80 mg/dL (40-60); Triglycerides 121 mg/dL (<=150); VLDL CHOLESTEROL 24.2 mg/dL
[2024-03-27 11:53] LABS: Thyroid Stimulating Hormone 15.639 uIU/mL (0.358-3.740)
--- NOTE | 2024-03-27 14:42 | SWNOTE1 ---
SW met with pt and in room. Pt lives at home with and is independent with all ADL's. Pt does not have any services coming in to the home and denies any discharge needs at this time. SW to follow as needed. Medicare Outpatient Observation Notice reviewed and discussed with patient. Pt. verbalized understanding and signed the form. Original given to patient and copy placed in patient?s chart. SW did provide pt with an advanced directive booklet. Nursing had reached out earlier and pt wanted more information about HCPOA and Living Will. Pt and will review booklet and let SW know if they would like to complete.
--- NOTE | 2024-03-27 14:52 | MR_ITS ---
The [address] [address] Patient Name: HIRO SEGOVIA MRN: [id number] date: 1945 Sex: F Assigned Patient Location: [place] Current Patient Location: [place] Accession/Order Number: [id number] Exam Date: 03/27/2024 17:26 Report Date: 03/27/2024 23:24 At the request of: SHAIKH HILARIA Procedure: MR head/brain w con EXAM: MR head/brain w con CLINICAL INDICATION: Abnormal neurological finding. COMPARISON: MRI brain without contrast 03/27/2024. TECHNIQUE/PROTOCOL: Postcontrast axial, sagittal, and coronal T1 images of the brain were obtained. CONTRAST: 12 mL of Dotarem FINDINGS: No extra-axial fluid collection, hydrocephalus, midline shift, or other mass effect. There is unchanged patchy intrinsic hyperintense T1 signal involving the right basal ganglia. Given this intrinsic signal, there is no gross associated abnormal parenchymal, dural, or leptomeningeal enhancement. MR/MR head/brain w con IMPRESSION: Unchanged patchy intrinsic hyperintense T1 signal involving the right basal ganglia. This is evaluated in more detail on MRI brain obtained earlier today. No gross gross abnormal intracranial enhancement. Electronically authenticated by: MANOLO MORILLO Date: 03/27/2024 23:24
[2024-03-27 15:05] LABS: Amphetamine Screen Urine NEGATIVE (NEGATIVE); Barbiturates Screen Urine NEGATIVE (NEGATIVE); Benzodiazepines Screen Urine NEGATIVE (NEGATIVE); Buprenorphine Screen Urine NEGATIVE (NEGATIVE); Cannabinoid Screen Urine POSITIVE (NEGATIVE); Cocaine Screen Urine NEGATIVE (NEGATIVE); Methadone Screen Urine NEGATIVE (NEGATIVE); Methamphetamines Screen Urine NEGATIVE (NEGATIVE); Opiate Screen Urine NEGATIVE (NEGATIVE); Oxycodone Screen Urine NEGATIVE (NEGATIVE); Phencyclidine Screen Urine NEGATIVE (NEGATIVE); Tricyclic Antidepressant Urine NEGATIVE (NEGATIVE)
[2024-03-27] MEDS: ACETAMINOPHEN 325 MG TABLET 650 MG PO (19:18)
[2024-03-27] MEDS: HYDRALAZINE HCL 20 MG/ML VIAL 10 MG IVP (19:19)
[2024-03-27] MEDS: ONDANSETRON PF 4 MG/2 ML VIAL IV (20:41)
--- NOTE | 2024-03-27 20:56 | PC.NURSE ---
Patient put call light on stating she was nauseated. BP checked 157/79. PRN zofran given. Walked out of patients room and patient put call light on stating her left arm was tingling and her left arm. BP rechecked 174/79. Neuro checked and all within normal limits with no deficits noted
[2024-03-27] MEDS: ATORVASTATIN CALCIUM 40 MG TABLET PO (21:37)
[2024-03-27] MEDS: LORAZEPAM 2 MG/ML VIAL 0.5 MG IV (22:06)
[2024-03-28] VITALS (10 sets, daily range): BP systolic 144–183; BP diastolic 56–87; PULSE 87–110; TEMP 36.8; O2SAT 93–95
[2024-03-28] MEDS: HYDRALAZINE HCL 20 MG/ML VIAL 10 MG IVP (04:57)
[2024-03-28] MEDS: ONDANSETRON PF 4 MG/2 ML VIAL IV (05:51)
--- OUTSIDE RECORDS SUMMARY | 2024-03-28 06:02 | XMS_ITS | CCD ---
Author Organization [facility] Care Team Providers Care Exchange Teller Name Role Phone BORIS CORTEZ Unavailable Unavailable MARGARETTE DUARTE Unavailable Unavailable Margarette Duarte Unavailable Unavailable DR MARGARETTE DUARTE Consulting Unavailable GERALD, DR PFEIFFER Attending Unavailable DR MARGARETTE DUARTE Admitting Unavailable Margarette Duarte Unavailable Bernarda Watson Unavailable DO Margarette Duarte Primary Care Provider [phone] DO Margarette Duarte Attending Provider [phone] DO Margarette Duarte Primary Care Provider DO Margarette Duarte Attending Provider DO Margarette Duarte Primary Care Provider DO Margarette Duarte Attending Provider DO Margarette Duarte Primary Care Provider DO Margarette Duarte Attending Provider DO Margarette Duarte Primary Care Provider DENNISE Garrett Attending Provider [phone] Margarette Duarte Primary Care Unavailable Margarette Duarte Attending Unavailable Margarette Duarte Admitting Unavailable Johana Garrett Admitting Unavailable Johana Garrett Attending Unavailable Margarette Duarte Primary Care Unavailable Allergies Allergy Classification Reported Allergen(s) Allergy Type Date of Onset Reaction(s) Facility (1 source) moxifloxacin Drug Allergy 07-13-19 20 [facility] Repository (1 source) Penicillin Drug Allergy 02-20-20 14 [facility] Repository (1 source) Misc-Food; Translations: [Misc-Food] Food allergy (disorder) 07-13-19 20 [facility] Repository (19 sources) moxifloxacin Drug Allergy 11-23-19 24 Unknown, Unknown Reaction [facility] (16 sources) Seafood Propensity to adverse reactions Unknown [employer] Other (6 sources) Penicillins; Translations: [Penicillins] Allergy to substance 09-18-19 Unknown Reaction [facility] (8 sources) Shellfish; Translations: [shellfish derived] Allergy to substance 09-18-19 Unknown Reaction [facility] (1 source) moxifloxacin Drug Allergy 03-20-20 [facility] Repository Medications Current Medications Medication Drug Class(es) [...] sources) Calcitonin Start: 09-16-2017 End: 11-23-2023 Calcitonin ([place]) Discontinued September 16, 2017 12:00am November 23, [...] fracture] Chronic Other aftercare (2 sources) Other detention (current) drug therapy Onset: 03-17-2022 Resolved: 03-17-2022 [...] 3V*on 024 XR foot LT min 3V* [facility] [place] [address] XRay Report Signed Patient: Zeny Segovia MR#: [id number] : 1945 Acct:[id number] Age/Sex: 78 / F ADM Date: 03/20/24 Loc: XDUCLY Room: Type: [facility] Attending Dr: Johana Garrett APRN Copies to: [...] Sahil Chacon M.D.03/20/2024 11:45 AM Dictation Location: [place] [address] Transcribed By: [facility] 03/20/24 1145 Dictated By: Sahil Chacon DO 03/20/24 1143 Signed By: 03/20/24 1145 Normal [facility] A1C with Estimated Average G kiley 11-16-2023 Glucose [Mass/Vol] 111 mg/dL Normal [facility] Comment on above: Order Comment: MICHAEL RANDOLPH Result Comment: PERF ORMED BY: [place] [address] PATHOLOGIST DOORS PREFITTER BRYAN CORTEZ M.D. Performed By: #### A 1C WT eA, CMP, TSH3, CBC, T4F, CUU, ADDONUAPLUS, LIPID, T3F #### [facility] [address] [place] [address] [place] Alanine aminotransferase [En zymatic activity/volume] in Serum or PlasmaOrdered By: Margarette Duarte on 11-16-2023 ALT [Catalytic activity/Vol] 19 U/L Normal 7-52 [facility] Comment on above: Order Comment: MICHAEL RANDOLPH Performed By: #### A 1C WT eA, CMP, TSH3, CBC, T4F, CUU, ADDONUAPLUS, LIPID, T3F #### [facility] [address] [place] [id number] [place] Albumin [Mass/volume] in Ser um or Plasma by Bromocresol green (BCG) dye binding methoOrdered By: Margarette Duarte on 11-16-2023 Albumin BCG dye [Mass/Vol] 4.1 g/dL 3.5-5.7 [facility] Alkaline phosphatase [Enzyma tic activity/volume] in Serum or PlasmaOrdered By: Margarette Duarte on 11-16-2023 ALP [Catalytic activity/Vol] 66 U/L Normal 34-104 [facility] Comment on above: Order Comment: FASTI NG. JKW Performed By: #### A 1C WTH eA, CMP, TSH3, CBC, T4F, CUU, ADDONUAPLUS, LIPID, T3F #### [address] Aspartate aminotransferase [ Enzymatic activity/volume] in Serum or PlasmaOrdered By: Margarette Duarte on 11-16-2023 AST [Catalytic activity/Vol] 20 U/L Normal 13-39 [facility] Comment on above: Order Comment: FASTI NG. JKW Performed By: #### A 1C WTH eA, CMP, TSH3, CBC, T4F, CUU, ADDONUAPLUS, LIPID, T3F #### [address] Automated basophil %Ordered By: Margarette Duarte on 11-16-2023 Basophils/100 WBC (Bld) 0.9 % Normal . [facility] Comment on above: Order Comment: FASTI NG. JKW Performed By: #### A 1C WTH eA, CMP, TSH3, CBC, T4F, CUU, ADDONUAPLUS, LIPID, T3F #### [address] Automated basophil countOrde red By: Margarette Duarte on 11-16-2023 Basophils (Bld) [#/Vol] 0.0 10*3/uL Normal 0.0-0.2 [facility] Comment on above: Order Comment: FASTI NG. JKW Result Comment: PERF ORMED BY: [place] [address] PATHOLOGIST DOORS PREFITTER BRYAN CORTEZ M.D. Performed By: #### A 1C WTH eA, CMP, TSH3, CBC, T4F, CUU, ADDONUAPLUS, LIPID, T3F #### [address] Automated blood monocyte cou ntOrdered By: Margarette Duarte on 11-16-2023 Monocytes (Bld) [#/Vol] 0.5 10*3/uL Normal 0.0-0.8 [facility] Comment on above: Order Comment: FASTI NG. JKW Performed By: #### A 1C WTH eA, CMP, TSH3, CBC, T4F, CUU, ADDONUAPLUS, LIPID, T3F #### [facility] [address] Automated eosinophil %Ordere d By: Margarette Duarte on 11-16-2023 Eosinophils/100 WBC (Bld) 9.9 % Normal . [facility] Comment on above: Order Comment: FASTI NG. JKW Performed By: #### A 1C WTH eA, CMP, TSH3, CBC, T4F, CUU, ADDONUAPLUS, LIPID, T3F #### [facility] [address] Automated eosinophil countOr dered By: Margarette Duarte on 11-16-2023 Eosinophils (Bld) [#/Vol] 0.5 10*3/uL High 0.0-0.45 [facility] Comment on above: Order Comment: FASTI NG. JKW Performed By: #### A 1C WT eA, CMP, TSH3, CBC, T4F, CUU, ADDONUAPLUS, LIPID, T3F #### [facility] [address] [place] [address] Automated monocyte %Ordered By: Margarette Duarte on 11-16-2023 Monocytes/100 WBC (Bld) 10.4 % Normal . [facility] Comment on above: Order Comment: FASTI NG. JKW Performed By: #### A 1C WTH eA, CMP, TSH3, CBC, T4F, CUU, ADDONUAPLUS, LIPID, T3F #### [facility] [address] Automated neutrophil %Ordere d By: Margarette Duarte on 11-16-2023 Neutrophils/100 WBC (Bld) 50.0 % Normal . [facility] Comment on above: Order Comment: FASTI NG. JKW Performed By: #### A 1C WTH eA, CMP, TSH3, CBC, T4F, CUU, ADDONUAPLUS, LIPID, T3F #### [facility] [address] [place] [address] [place] Bacteria [Presence] in Urine by AutomatedOrdered By: Margarette Duarte on 11-16-2023 Bacteria Auto Ql (U) None seen [HPF] None Seen [facility] Bilirubin Test strip Ql (U)O rdered By: Margarette Duarte on 11-16-2023 Bilirubin Ql (U) Negative Negative [facility] Bilirubin.total [Mass/volume ] in Serum or PlasmaOrdered By: Margarette Duarte on 11-16-2023 Bilirubin [Mass/Vol] 0.5 mg/dL Normal 0.3-1.0 [facility] Comment on above: Order Comment: MICHAEL BorgesKW Performed By: #### A 1C WTH eA, CMP, TSH3, CBC, T4F, CUU, ADDONUAPLUS, LIPID, T3F #### [facility] [address] [place] [address] [place] Calcium [Mass/volume] in Ser um or PlasmaOrdered By: Margarette Duarte on 11-16-2023 Calcium [Mass/Vol] 9.2 mg/dL Normal 8.6-10.3 [facility] Comment on above: Order Comment: MICHAEL BorgesKW Performed By: #### A 1C WTH eA, CMP, TSH3, CBC, T4F, CUU, ADDONUAPLUS, LIPID, T3F #### [facility] [address] [place] [phone] [place] Carbon dioxide, total [Moles /volume] in Serum or PlasmaOrdered By: Margarette Duarte on 11-16-2023 CO2 [Moles/Vol] 27.7 mmol/L Normal 21.0-31.0 [facility] Comment on above: Order Comment: MICHAEL MARTINEZ JKW Performed By: #### A 1C WTH eA, CMP, TSH3, CBC, T4F, CUU, ADDONUAPLUS, LIPID, T3F #### [facility] [address] [place] [phone] [place] Chloride [Moles/volume] in S may or PlasmaOrdered By: Margarette Duarte on 11-16-2023 Chloride [Moles/Vol] 110 mmol/L High 98-107 [facility] Comment on above: Order Comment: MICHAEL BorgesKW Performed By: #### A 1C WTH eA, CMP, TSH3, CBC, T4F, CUU, ADDONUAPLUS, LIPID, T3F #### [facility] [address] [place] [phone] [place] Cholesterol [Mass/volume] in Serum or PlasmaOrdered By: Margarette Duarte on 11-16-2023 Cholesterol [Mass/Vol] 246 mg/dL High 140-200 [facility] Comment on above: Chol less than 200 m g/dl low riskChol 201-239 mg/dl borderline riskChol 240 mg/dl and greater high risk Order Comment: MICHAEL LINW Result Comment: Chol less than 200 mg/dl low risk Chol 201-239 mg/dl borderline risk Chol 240 mg/dl and greater high risk Performed By: #### A 1C WTH eA, CMP, TSH3, CBC, T4F, CUU, ADDONUAPLUS, LIPID, T3F #### [facility] [address] [place] [phone] [place] Cholesterol in LDL Calc [Mas s/Vol]Ordered By: Margarette Duarte on 11-16-2023 Cholesterol in LDL [Mass/Vol] 162 mg/dL 0-100 [facility] Comment on above: LDL ATP III CLASSIFI CATIONLDL less than 100 mg/dL OptimalLDL 100-129 mg/dL Near or above optimalLDL 130-159 mg/dL Borderline highLDL 160-189 mg/dL HighLDL greater than 189 mg/dL Very high Cholesterol in VLDL Calc [Ma ss/Vol]Ordered By: Margarette Duarte on 11-16-2023 Cholesterol in VLDL [Mass/Vol] 23 mg/dL [facility] Color of Urine by AutoOrdere d By: Margarette Duarte on 11-16-2023 Color (U) Yellow Normal Yellow [facility] Comment on above: Order Comment: MICHAEL RANDOLPH Name Collection Type:: Clean-Voided Midstream Performed By: #### A 1C WTH eA, CMP, TSH3, CBC, T4F, CUU, ADDONUAPLUS, LIPID, T3F #### [facility] [address] [place] [address] Complete Blood Count Auto Di ffon 11-16-2023 Mean Corpuscular HGB Conc 33.9 g/dL Normal 32.0-35.0 [facility] Comment on above: Order Comment: FASTI NG. JKW Performed By: #### A 1C WTH eA, CMP, TSH3, CBC, T4F, CUU, ADDONUAPLUS, LIPID, T3F #### [facility] [address] [place] [address] NRBC% 0.1 /100{WBC} Normal 0-0.5 [facility] Comment on above: Order Comment: FASTI NG. JKW Performed By: #### A 1C WTH eA, CMP, TSH3, CBC, T4F, CUU, ADDONUAPLUS, LIPID, T3F #### [facility] [address] [place] [address] Comprehensive Metabolic Pane rere 11-16-2023 Albumin [Mass/Vol] 4.1 g/dL Normal 3.5-5.7 [facility] Comment on above: Order Comment: FASTI NG. JKW Performed By: #### A 1C WTH eA, CMP, TSH3, CBC, T4F, CUU, ADDONUAPLUS, LIPID, T3F #### [facility] [address] [place] [address] GFR/1.73 sq M.predicted MDRD (S/P/Bld) [Vol rate/Area] mL/min/{1.73_m2} Normal [facility] Comment on above: Order Comment: FASTI NG. JKW Performed By: #### A 1C WTH eA, CMP, TSH3, CBC, T4F, CUU, ADDONUAPLUS, LIPID, T3F #### [facility] [address] [place] [address] Creatinine [Mass/volume] in Serum or PlasmaOrdered By: Margarette Duarte on 11-16-2023 Creatinine [Mass/Vol] 0.87 mg/dL Normal 0.60-1.20 [facility] Comment on above: Order Comment: FASTI NG. JKW Performed By: #### A 1C WTH eA, CMP, TSH3, CBC, T4F, CUU, ADDONUAPLUS, LIPID, T3F #### [facility] [address] [place] [address] [place] Dipstick and Microscopicon 0 11-16-2023 Appearance (U) Clear Normal Clear [facility] Comment on above: Order Comment: FASTI NG. JKW Name Collection Type:: Clean-Voided Midstream Performed By: #### A 1C WTH eA, CMP, TSH3, CBC, T4F, CUU, ADDONUAPLUS, LIPID, T3F #### [facility] [address] Bacteria,Urine None Seen Normal None Seen [facility] Comment on above: Order Comment: FASTI NG. JKW Name Collection Type:: Clean-Voided Midstream Performed By: #### A 1C WTH eA, CMP, TSH3, CBC, T4F, CUU, ADDONUAPLUS, LIPID, T3F #### [address] Bilirubin,Urine Negative Normal Negative [facility] Comment on above: Order Comment: FASTI NG. JKW Name Collection Type:: Clean-Voided Midstream Performed By: #### A 1C WTH eA, CMP, TSH3, CBC, T4F, CUU, ADDONUAPLUS, LIPID, T3F #### [address] Glucose Ql (U) Normal Normal Normal [facility] Comment on above: Order Comment: FASTI NG. JKW Name Collection Type:: Clean-Voided Midstream Performed By: #### A 1C WTH eA, CMP, TSH3, CBC, T4F, CUU, ADDONUAPLUS, LIPID, T3F #### [address] Hyaline Casts,Urine None Seen Normal 0-8 [facility] Comment on above: Order Comment: FASTI NG. JKW Name Collection Type:: Clean-Voided Midstream Result Comment: PERF ORMED BY: [place] [address] PATHOLOGIST DOORS PREFITTER BRYAN CORTEZ M.D. Performed By: #### A 1C WTH eA, CMP, TSH3, CBC, T4F, CUU, ADDONUAPLUS, LIPID, T3F #### [address] Ketones Ql (U) Negative Normal Negative [facility] Comment on above: Order Comment: FASTI NG. JKW Name Collection Type:: Clean-Voided Midstream Performed By: #### A 1C WTH eA, CMP, TSH3, CBC, T4F, CUU, ADDONUAPLUS, LIPID, T3F #### [address] Leukocyte esterase Test strip Ql (U) Negative Normal Negative [facility] Comment on above: Order Comment: FASTI NG. JKW Name Collection Type:: Clean-Voided Midstream Performed By: #### A 1C WTH eA, CMP, TSH3, CBC, T4F, CUU, ADDONUAPLUS, LIPID, T3F #### [place] [address] [place] Nitrite,Urine Negative Normal Negative [facility] Comment on above: Order Comment: FASTI NG. JKW Name Collection Type:: Clean-Voided Midstream Performed By: #### A 1C WTH eA, CMP, TSH3, CBC, T4F, CUU, ADDONUAPLUS, LIPID, T3F #### [place] [address] [place] Occult Blood,Urine Negative Normal Negative [facility] Comment on above: Order Comment: FASTI NG. JKW Name Collection Type:: Clean-Voided Midstream Performed By: #### A 1C WTH eA, CMP, TSH3, CBC, T4F, CUU, ADDONUAPLUS, LIPID, T3F #### [place] [address] [place] Protein,Urine Negative Normal Negative [facility] Comment on above: Order Comment: FASTI NG. JKW Name Collection Type:: Clean-Voided Midstream Performed By: #### A 1C WTH eA, CMP, TSH3, CBC, T4F, CUU, ADDONUAPLUS, LIPID, T3F #### [facility] [address] RBC LM.HPF (Urine sed) [#/Area] 0 /[HPF] Normal 0-4 [facility] Comment on above: Order Comment: FASTI NG. JKW Name Collection Type:: Clean-Voided Midstream Performed By: #### A 1C WTH eA, CMP, TSH3, CBC, T4F, CUU, ADDONUAPLUS, LIPID, T3F #### [facility] [address] Specificy [place],Urine 1.016 Normal 1.001-1.030 [facility] Comment on above: Order Comment: FASTI NG. JKW Name Collection Type:: Clean-Voided Midstream Performed By: #### A 1C WTH eA, CMP, TSH3, CBC, T4F, CUU, ADDONUAPLUS, LIPID, T3F #### [address] Squamous Epithelial Cell,Urine None Seen Normal 0-2 [facility] Comment on above: Order Comment: FASTI NG. JKW Name Collection Type:: Clean-Voided Midstream Performed By: #### A 1C WTH eA, CMP, TSH3, CBC, T4F, CUU, ADDONUAPLUS, LIPID, T3F #### [address] Urobilinogen,Urine Normal Normal Normal [facility] Comment on above: Order Comment: FASTI NG. JKW Name Collection Type:: Clean-Voided Midstream Performed By: #### A 1C WTH eA, CMP, TSH3, CBC, T4F, CUU, ADDONUAPLUS, LIPID, T3F #### [address] WBC,Urine 1-2 Normal 0-4 [facility] Comment on above: Order Comment: FASTI NG. JKW Name Collection Type:: Clean-Voided Midstream Performed By: #### A 1C WTH eA, CMP, TSH3, CBC, T4F, CUU, ADDONUAPLUS, LIPID, T3F #### [facility] [address] Erythrocyte distribution wid th [Ratio] by Automated countOrdered By: Margarette Duarte on 11-16-2023 Erythrocyte distribution width (RBC) [Ratio] 12.9 % Normal 11.9-15.3 [facility] Comment on above: Order Comment: FASTI NG. JKW Performed By: #### A 1C WTH eA, CMP, TSH3, CBC, T4F, CUU, ADDONUAPLUS, LIPID, T3F #### [facility] [address] Erythrocytes [#/area] in Uri ne sediment by Automated countOrdered By: Margarette Duarte on 11-16-2023 RBC Auto (Urine sed) [#/Area] 0-1 [HPF] 0-4 [facility] Erythrocytes [#/volume] in B lood by Automated countOrdered By: Margarette Duarte on 11-16-2023 RBC (Bld) [#/Vol] 3.99 10*6/uL Normal 3.60-5.[address] [facility] Comment on above: Order Comment: FASTI NG. JKW Performed By: #### A 1C WTH eA, CMP, TSH3, CBC, T4F, CUU, ADDONUAPLUS, LIPID, T3F #### [facility] [address] Glucose [Mass/volume] in Ser um or PlasmaOrdered By: Margarette Duarte on 11-16-2023 Glucose [Mass/Vol] 100 mg/dL Normal 70-100 [facility] Comment on above: ADA recommended refe rence rangeRandom Glucose Reference Range is dependent on time and content of last meal. Glucose of more than 200 mg/dL in a nonstressed, ambulatory subject supports the diagnosis of Diabetes Mellitus. Order Comment: FASTI NG. JKW Result Comment: [place] om Glucose Reference Range is dependent on time and content of last meal. Glucose of more than 200 mg/dL in a nonstressed, ambulatory subject supports the diagnosis of Diabetes Mellitus. ADA recommended reference range Performed By: #### A 1C WTH eA, CMP, TSH3, CBC, T4F, CUU, ADDONUAPLUS, LIPID, T3F #### [facility] [address] Glucose mean value [Mass/vol ume] in Blood Estimated from glycated hemoglobinOrdered By: Margarette Duarte on 11-16-2023 Average glucose Estimated from glycated hemoglobin (Bld) [Mass/Vol] 111 mg/dL [facility] Hematocrit [Volume Fraction] of Blood by Automated countOrdered By: Margarette Duarte on 11-16-2023 Hematocrit (Bld) [Volume fraction] 37.0 % Normal 34.0-46.4 [facility] Comment on above: Order Comment: MICHAEL CANTU. JonyKW Performed By: #### A 1C WTH eA, CMP, TSH3, CBC, T4F, CUU, ADDONUAPLUS, LIPID, T3F #### [facility] [address] Hemoglobin A1c percentageOrd ered By: Margarette Duarte on 11-16-2023 HbA1c (Bld) [Mass fraction] 5.5 % Normal 4.3-5.6 [facility] Comment on above: Increased risk for d iabetes: 5.7 - 6.4diabetes: >6.4glycemic control for adults with diabetes: <7.0 Order Comment: FASTI NG. JKW Result Comment: Incr eased risk for diabetes: 5.7 - 6.4 diabetes: >6.4 glycemic control for adults with diabetes: <7.0 Performed By: #### A 1C WTH eA, CMP, TSH3, CBC, T4F, CUU, ADDONUAPLUS, LIPID, T3F #### [facility] [address] Hemoglobin [Mass/volume] in BloodOrdered By: Margarette Duarte on 11-16-2023 Hemoglobin (Bld) [Mass/Vol] 12.6 g/dL Normal 11.8-15.4 [facility] Comment on above: Order Comment: FASTI NG. JKW Performed By: #### A 1C WT eA, CMP, TSH3, CBC, T4F, CUU, ADDONUAPLUS, LIPID, T3F #### [facility] [address] Ketones Auto test strip (U) [Mass/Vol]Ordered By: Margarette Duarte on 11-16-2023 Ketones (U) [Mass/Vol] Negative Negative [facility] Laboratory - UrinalysisOrder ed By: Margarette Duarte on 11-16-2023 Hyaline casts LM Ql (Urine sed) None seen [LPF] 0-8 [facility] Leukocytes [#/area] in Urine sediment by Automated countOrdered By: Margarette Duarte on 11-16-2023 WBC Auto (Urine sed) [#/Area] 1-2 [HPF] 0-4 [facility] Leukocytes [#/volume] correc dano for nucleated erythrocytes in Blood by Automated counOrdered By: Margarette Duarte on 11-16-2023 WBC corrected for nucl RBC Auto (Bld) [#/Vol] 4.7 10*3/uL 3.8-11.6 [facility] Leukocytes [#/volume] in Blo od by Automated countOrdered By: Margarette Duarte on 11-16-2023 WBC (Bld) [#/Vol] 4.7 10*3/uL Normal 3.8-11.6 [facility] Comment on above: Order Comment: MICHAEL BorgesKW Performed By: #### A 1C WTH eA, CMP, TSH3, CBC, T4F, CUU, ADDONUAPLUS, LIPID, T3F #### [facility] [address] Lipid Panelon 11-16-2023 LDL Cholesterol,Calculated 162 mg/dL High 0-100 [facility] Comment on above: Order Comment: MICHAEL BorgesKW Result Comment: LDL ATP III CLASSIFICATION LDL less than 100 mg/dL Optimal LDL 100-129 mg/dL Near or above optimal LDL 130-159 mg/dL Borderline high LDL 160-189 mg/dL High LDL greater than 189 mg/dL Very high Performed By: #### A 1C WTH eA, CMP, TSH3, CBC, T4F, CUU, ADDONUAPLUS, LIPID, T3F #### [address] Triglyceride w/Reflex 116 mg/dL Normal 0-149 [facility] Comment on above: Order Comment: [...] CBC, T4F, CUU, ADDONUAPLUS, LIPID, T3F #### [address] VLDL CHOLESTEROL 23 mg/dL Normal [facility] Comment on above: Order Comment: FASTI NG. JKW Performed By: #### A 1C WTH eA, CMP, TSH3, CBC, T4F, CUU, ADDONUAPLUS, LIPID, T3F #### [address] Lymphocytes [#/volume] in Bl ood by Automated countOrdered By: Margarette Duarte on 11-16-2023 Lymphocytes (Bld) [#/Vol] 1.4 10*3/uL Normal 1.00-4.8 [facility] Comment on above: Order Comment: FASTI NG. JKW Performed By: #### A 1C WTH eA, CMP, TSH3, CBC, T4F, CUU, ADDONUAPLUS, LIPID, T3F #### [address] Lymphocytes/100 leukocytes i n Blood by Automated countOrdered By: Margarette Duarte on 11-16-2023 Lymphocytes/100 WBC (Bld) 28.8 % Normal . [facility] Comment on above: Order Comment: FASTI NG. JKW Performed By: #### A 1C WTH eA, CMP, TSH3, CBC, T4F, CUU, ADDONUAPLUS, LIPID, T3F #### [address] MCH [Entitic mass] by Automa dano countOrdered By: Margarette Duarte on 11-16-2023 MCH (RBC) [Entitic mass] 31.5 pg Normal 24.7-34.3 [facility] Comment on above: Order Comment: FASTI PEPE. JKW Performed By: #### A 1C WTH eA, CMP, TSH3, CBC, T4F, CUU, ADDONUAPLUS, LIPID, T3F #### [facility] [address] MCHC Auto (RBC) [Mass/Vol]Or dered By: Margarette Duarte on 11-16-2023 MCHC (RBC) [Mass/Vol] 33.9 g/dL 32.0-35.0 [facility] MCV [Entitic volume] by Auto mated countOrdered By: Margarette Duarte on 11-16-2023 MCV (RBC) [Entitic vol] 92.7 fL Normal 80-100 [facility] Comment on above: Order Comment: FASTLucius CANTU. JKW Performed By: #### A 1C WT eA, CMP, TSH3, CBC, T4F, CUU, ADDONUAPLUS, LIPID, T3F #### [facility] [address] [place] [address] Neutrophils [#/volume] in Bl ood by Automated countOrdered By: Margarette Duarte on 11-16-2023 Neutrophils (Bld) [#/Vol] 2.4 10*3/uL Normal 1.8-7.7 [facility] Comment on above: Order Comment: FASTI NG. JKW Performed By: #### A 1C WTH eA, CMP, TSH3, CBC, T4F, CUU, ADDONUAPLUS, LIPID, T3F #### [facility] [address] Nitrite Test strip Ql (U)Ord ered By: Margarette Duarte on 11-16-2023 Nitrite Ql (U) Negative Negative [facility] No Panel InformationOrdered By: Margarette Duarte on 11-16-2023 Estimated GFR (CKD-EPI) > 60.0 mL/Min [facility] Creatinine Clearance (Chem N/A [facility] Nucleated erythrocytes [Pres ence] in Blood by Automated countOrdered By: Margarette Duarte on 11-16-2023 Nucleated RBC Auto Ql (Bld) 0.1 /100{WBC} 0-0.5 [facility] Platelet mean volume [Entiti c volume] in Blood by Automated countOrdered By: Margarette Duarte on 11-16-2023 Platelet mean volume (Bld) [Entitic vol] 8.1 fL Normal 6.3-10.7 [facility] Comment on above: Order Comment: FASTI NG. JKW Performed By: #### A 1C WTH eA, CMP, TSH3, CBC, T4F, CUU, ADDONUAPLUS, LIPID, T3F #### [facility] [address] Platelets [#/volume] in Bloo d by Automated countOrdered By: Margarette Duarte on 11-16-2023 Platelets (Bld) [#/Vol] 247 10*3/uL Normal 150-450 [facility] Comment on above: Order Comment: FASTI NG. JKW Performed By: #### A 1C WTH eA, CMP, TSH3, CBC, T4F, CUU, ADDONUAPLUS, LIPID, T3F #### [facility] [address] Potassium [Moles/volume] in Serum or PlasmaOrdered By: Margarette Duarte on 11-16-2023 Potassium [Moles/Vol] 4.3 mmol/L Normal 3.5-5.1 [facility] Comment on above: Order Comment: FASTI NG. JKW Performed By: #### A 1C WTH eA, CMP, TSH3, CBC, T4F, CUU, ADDONUAPLUS, LIPID, T3F #### [facility] [address] Protein Auto test strip (U) [Mass/Vol]Ordered By: Margarette Duarte on 11-16-2023 Protein (U) [Mass/Vol] Negative Negative [facility] Protein [Mass/volume] in Ser um or PlasmaOrdered By: Margarette Duarte on 11-16-2023 Protein [Mass/Vol] 6.6 g/dL Normal 6.4-8.9 [facility] Comment on above: Order Comment: FASTI NG. JKW Performed By: #### A 1C WTH eA, CMP, TSH3, CBC, T4F, CUU, ADDONUAPLUS, LIPID, T3F #### [facility] [address] Serum globulin measurement b y calculation (mass/volume)Ordered By: Margarette Duarte on 11-16-2023 Globulin (S) [Mass/Vol] 2.5 g/dL [facility] Comment on above: Order Comment: FASTI NG. JKW Performed By: #### A 1C WTH eA, CMP, TSH3, CBC, T4F, CUU, ADDONUAPLUS, LIPID, T3F #### [address] Serum or plasma albumin/glob ulin mass ratioOrdered By: Margarette Duarte on 11-16-2023 Albumin/Globulin [Mass ratio] 1.6 {ratio} Normal [facility] Comment on above: Order Comment: FASTI NG. JKW Performed By: #### A 1C WTH eA, CMP, TSH3, CBC, T4F, CUU, ADDONUAPLUS, LIPID, T3F #### [address] Serum or plasma anion gap de terminationOrdered By: Margarette Duarte on 11-16-2023 Anion gap [Moles/Vol] 2.6 mmol/L Low 6.0-15.0 [facility] Comment on above: Order Comment: FASTI NG. JKW Performed By: #### A 1C WTH eA, CMP, TSH3, CBC, T4F, CUU, ADDONUAPLUS, LIPID, T3F #### [address] Serum or plasma high density lipoprotein (HDL) cholesterol measurementOrdered By: Margarette Duarte on 11-16-2023 Cholesterol in HDL [Mass/Vol] 61 mg/dL Normal 23-92 [facility] Comment on above: HDL CHOL ATP-III CLA SSIFICATION Cardiovascular RiskHDL > or equal to 60 mg/dL LOWHDL < 40 mg/dL HIGH Order Comment: MICHAEL CANTU. JKW Result Comment: HDL CHOL ATP-III CLASSIFICATION Cardiovascular Risk HDL > or equal to 60 mg/dL LOW HDL < 40 mg/dL HIGH Performed By: #### A 1C WTH eA, CMP, TSH3, CBC, T4F, CUU, ADDONUAPLUS, LIPID, T3F #### [facility] [address] Serum or plasma total choles terol/high density lipoprotein (HDL) cholesterol mass ratOrdered By: Margarette Duarte on 11-16-2023 Cholesterol.total/Ora sterol in HDL [Mass ratio] 4.0 {ratio} Normal <5.0 [facility] Comment on above: Order Comment: MICHAEL MARTINEZ JKW Performed By: #### A 1C WT eA, CMP, TSH3, CBC, T4F, CUU, ADDONUAPLUS, LIPID, T3F #### [address] Sodium [Moles/volume] in Ser um or PlasmaOrdered By: Margarette Duarte on 11-16-2023 Sodium [Moles/Vol] 136 mmol/L Normal 136-145 [facility] Comment on above: Order Comment: MICHAEL MARTINEZ JKW Performed By: #### A 1C WTH eA, CMP, TSH3, CBC, T4F, CUU, ADDONUAPLUS, LIPID, T3F #### [address] Specific gravity Auto test s trip (U) [Rel density]Ordered By: Margarette Duarte on 11-16-2023 Specific gravity (U) [Rel density] 1.016 1.001-1.030 [facility] Squamous epithelial cells de tection in urine sediment by light microscopyOrdered By: Margarette Duarte on 11-16-2023 Epithelial cells.squamous LM Ql (Urine sed) None seen [HPF] 0-2 [facility] Thyrotropin [Units/volume] i n Serum or PlasmaOrdered By: Margarette Duarte on 11-16-2023 TSH Qn 0.23 m[IU]/L Low 0.45-5.33 [facility] Comment on above: Order Comment: MICHAEL BorgesKW Result Comment: PERF ORMED BY: [place] [address] PATHOLOGIST DOORS PREFITTER BRYAN CORTEZ M.D. Performed By: #### A 1C WTH eA, CMP, TSH3, CBC, T4F, CUU, ADDONUAPLUS, LIPID, T3F #### [address] Thyroxine (T4) free [Mass/vo lume] in Serum or PlasmaOrdered By: Margarette Duarte on 11-16-2023 Free T4 [Mass/Vol] 1.10 ng/dL Normal 0.61-1.12 [facility] Comment on above: Order Comment: MICHAEL BorgesKW Performed By: #### A 1C WTH eA, CMP, TSH3, CBC, T4F, CUU, ADDONUAPLUS, LIPID, T3F #### [address] Triglyceride [Mass/volume] i n Serum or PlasmaOrdered By: Margarette Duarte on 11-16-2023 Triglyceride [Mass/Vol] 116 mg/dL 0-149 [facility] Comment on above: TRIG ATP III CLASSIF ICATIONTRIG less than 150 mg/dL NormalTRIG 150-199 mg/dL Borderline highTRIG 200-500 mg/dL High TRIG greater than 500 mg/dL Very highStandard traceable to the Center for Disease Conrtrol and Prevention (CDC) test method. Triiodothyronine (T3) Freeon 11-16-2023 Triiodothyronine (T3) Free 2.94 pg/mL Normal 2.50-3.90 [facility] Comment on above: Order Comment: MICHAEL BorgesKW Result Comment: PERF ORMED BY: [place] [address] PATHOLOGIST DO[employer] PREFITTER BRYAN CORTEZ M.D. Performed By: #### A 1C WTH eA, CMP, TSH3, CBC, T4F, CUU, ADDONUAPLUS, LIPID, T3F #### [facility] [address] Triiodothyronine (T3) Free [ Mass/volume] in Serum or PlasmaOrdered By: Margarette Duarte on 11-16-2023 Free T3 [Mass/Vol] 2.94 pg/mL 2.50-3.90 [facility] Urea nitrogen [Mass/volume] in Serum or PlasmaOrdered By: Margarette Duarte on 11-16-2023 Urea nitrogen [Mass/Vol] 17 mg/dL Normal 7-25 [facility] Comment on above: Order Comment: FASTI NG. JKW Performed By: #### A 1C WTH eA, CMP, TSH3, CBC, T4F, CUU, ADDONUAPLUS, LIPID, T3F #### [address] Urine Cultureon 11-16-2023 Bacteria identified Cx Nom (U) FASTING. JKW No Growth 2 Days PERFORMED BY: [place] [address] PATHOLOGIST [employer] PREFITTER BRYAN CORTEZ M.D. Normal [facility] Comment on above: Performed By: #### A 1C WTH eA, CMP, TSH3, CBC, T4F, CUU, ADDONUAPLUS, LIPID, T3F #### [address] Urine clarity by refractomet ry automatedOrdered By: Margarette Duarte on 11-16-2023 Clarity Refractometry automated (U) Clear Clear [facility] Urine culture routineOrdered By: Margarette Duarte on 11-16-2023 Bacteria identified Cx Nom (U) No Growth 2 Days [facility] Urine glucose measurement by automated test strip (mass/volume)Ordered By: Margarette Duarte on 11-16-2023 Glucose Auto test strip (U) [Mass/Vol] Normal mg/dL Normal [facility] Urine hemoglobin detection b y automated test stripOrdered By: Margarette Duarte on 11-16-2023 Hemoglobin Auto test strip Ql (U) Negative Negative [facility] Urine leukocyte esterase det ection by automated test stripOrdered By: Margarette Duarte on 11-16-2023 Leukocyte esterase Auto test strip Ql (U) Negative Negative [facility] Urine pH measurement by auto mated test stripOrdered By: Margarette Duarte on 11-16-2023 pH (U) 5.5 [pH] Normal 5.0-9.0 [facility] Comment on above: Order Comment: MICHAEL MARTINEZ JBranW Name Collection Type:: Clean-Voided Midstream Performed By: #### A 1C WTH eA, CMP, TSH3, CBC, T4F, CUU, ADDONUAPLUS, LIPID, T3F #### [facility] [address] Urobilinogen Auto test strip (U) [Mass/Vol]Ordered By: Margarette Duarte on 11-16-2023 Urobilinogen (U) [Mass/Vol] Normal mg/dL Normal [facility] Basophils Auto (Bld) [#/Vol] on 08-31-2023 Basophils (Bld) [#/Vol] 0.1 10 3/uL 0.0-0.1 [facility] Basophils/100 WBC Auto (Bld) on 08-31-2023 Basophils/100 WBC (Bld) 0.5 % 0.2-2.0 [facility] Eosinophils/100 WBC Auto (Bl d)on 08-31-2023 Eosinophils/100 WBC (Bld) 3.7 % 0.9-7.0 [facility] Erythrocyte distribution wid th Auto (RBC) [Ratio]on 08-31-2023 Erythrocyte distribution width (RBC) [Ratio] 12.9 % 11.0-15.0 [facility] Estimated glomerular filtrat ion rate (GFR) non- Americanon 08-31-2023 GFR/1.73 sq M.predicted among non-blacks MDRD (S/P/Bld) [Vol rate/Area] mL/min/{1.73_m2} >=60 [facility] Hematocrit Auto (Bld) [Volum e fraction]on 08-31-2023 Hematocrit (Bld) [Volume fraction] 37.6 % 36.0-48.0 [facility] Hemoglobin [Mass/volume] in Bloodon 08-31-2023 Hemoglobin (Bld) [Mass/Vol] 12.6 g/dL 12.0-16.0 [facility] Laboratory - Chemistry and C hemistry - challengeon 08-31-2023 Calcium [Mass/Vol] 9.2 mg/dL 8.5-10.1 [facility] Chloride [Moles/Vol] 103 mmol/L 98-107 [facility] CO2 [Moles/Vol] 23.3 mmol/L 21.0-32.0 [facility] Creatinine [Mass/Vol] 0.79 mg/dL 0.55-1.02 [facility] GFR/1.73 sq M.predicted MDRD (S/P/Bld) [Vol rate/Area] mL/min/{1.73_m2} >=60 [facility] Glucose [Mass/Vol] 162 mg/dL 74-106 [facility] Potassium [Moles/Vol] 3.5 mmol/L 3.5-5.1 [facility] Sodium [Moles/Vol] 139 mmol/L 136-145 [facility] Urea nitrogen [Mass/Vol] 16.0 mg/dL 7.0-18.0 [facility] Urea nitrogen/Creatinine [Mass ratio] 20.3 mg/mg [facility] Laboratory - Hematology and Cell countson 08-31-2023 ESR (Bld) [Velocity] 52 mm/h <=30 [facility] Immature granulocytes/100 WBC (Bld) 0.4 % 0.0-0.5 [facility] Leukocytes [#/volume] correc dano for nucleated erythrocytes in Blood by Automated counon 08-31-2023 WBC corrected for nucl RBC Auto (Bld) [#/Vol] 9.4 10 3/uL 4.0-11.0 [facility] Lymphocytes Auto (Bld) [#/Vo l]on 08-31-2023 Lymphocytes (Bld) [#/Vol] 1.6 10 3/uL 1.2-3.8 [facility] Lymphocytes/100 WBC Auto (Bl d)on 08-31-2023 Lymphocytes/100 WBC (Bld) 17.4 % 20.5-60.0 [facility] MCH Auto (RBC) [Entitic mass ]on 08-31-2023 MCH (RBC) [Entitic mass] 31.8 pg 26.7-34.0 [facility] MCHC Auto (RBC) [Mass/Vol]on 08-31-2023 MCHC (RBC) [Mass/Vol] 33.5 g/dL 29.9-35.2 [facility] MCV Auto (RBC) [Entitic vol] on 08-31-2023 MCV (RBC) [Entitic vol] 94.9 fL 81.0-99.0 [facility] Monocytes Auto (Bld) [#/Vol] on 08-31-2023 Monocytes (Bld) [#/Vol] 0.8 10 3/uL 0.3-0.8 [facility] Monocytes/100 WBC Auto (Bld) on 08-31-2023 Monocytes/100 WBC (Bld) 8.4 % 1.7-12.0 [facility] Neutrophils Auto (Bld) [#/Vo l]on 08-31-2023 Neutrophils (Bld) [#/Vol] 6.5 10 3/uL 1.4-6.5 [facility] Neutrophils/100 WBC Auto (Bl d)on 08-31-2023 Neutrophils/100 WBC (Bld) 69.6 % 43.0-75.0 [facility] No Panel Informationon 08-31 Eosinophils # (Auto) 0.4 10 3/uL 0.0-0.7 [facility] Immature Granulocyte # (Auto) 0.04 10 3/uL 0.00-0.03 [facility] Platelet mean volume Auto (B ld) [Entitic vol]on 08-31-2023 Platelet mean volume (Bld) [Entitic vol] 9.3 fL 9.5-13.5 [facility] Platelets Auto (Bld) [#/Vol] on 08-31-2023 Platelets (Bld) [#/Vol] 273 10 3/uL 150-450 [facility] RBC Auto (Bld) [#/Vol]on RBC (Bld) [#/Vol] 3.96 10 6/uL 4.20-5.[address] [facility] Serum or plasma anion gap de terminationon 08-31-2023 Anion gap [Moles/Vol] 16.2 mmol/L [facility] Alanine aminotransferase [En zymatic activity/volume] in Serum or PlasmaOrdered By: Margarette Duarte on 03-22-2023 ALT [Catalytic activity/Vol] 25 U/L 7-52 [facility] Albumin [Mass/volume] in Ser um or Plasma by Bromocresol green (BCG) dye binding methoOrdered By: Margarette Duarte on 03-22-2023 Albumin BCG dye [Mass/Vol] 4.3 g/dL 3.5-5.7 [facility] Alkaline phosphatase [Enzyma tic activity/volume] in Serum or PlasmaOrdered By: Margarette Duarte on 03-22-2023 ALP [Catalytic activity/Vol] 94 U/L 34-104 [facility] Aspartate aminotransferase [ Enzymatic activity/volume] in Serum or PlasmaOrdered By: Margarette Duarte on 03-22-2023 AST [Catalytic activity/Vol] 23 U/L 13-39 [facility] Basophils Auto (Bld) [#/Vol] Ordered By: Margarette Duarte on 03-22-2023 Basophils (Bld) [#/Vol] 0.0 10*3/uL 0.0-0.2 [facility] Basophils/100 WBC Auto (Bld) Ordered By: Margarette Duarte on 03-22-2023 Basophils/100 WBC (Bld) 0.7 % . [facility] Bilirubin.total [Mass/volume ] in Serum or PlasmaOrdered By: Margarette Duarte on 03-22-2023 Bilirubin [Mass/Vol] 0.5 mg/dL 0.3-1.0 [facility] Calcium [Mass/volume] in Ser um or PlasmaOrdered By: Margarette Duarte on 03-22-2023 Calcium [Mass/Vol] 9.6 mg/dL 8.6-10.3 [facility] Carbon dioxide, total [Moles /volume] in Serum or PlasmaOrdered By: Margarette Duarte on 03-22-2023 CO2 [Moles/Vol] 26.9 mmol/L 21.0-31.0 [facility] Chloride [Moles/volume] in S may or PlasmaOrdered By: Margarette Duarte on 03-22-2023 Chloride [Moles/Vol] 105 mmol/L 98-107 [facility] Cholesterol [Mass/volume] in Serum or PlasmaOrdered By: Margarette Duarte on 03-22-2023 Cholesterol [Mass/Vol] 276 mg/dL 140-200 [facility] Comment on above: Chol less than 200 m g/dl low riskChol 201-239 mg/dl borderline riskChol 240 mg/dl and greater high risk Cholesterol in LDL Calc [Mas s/Vol]Ordered By: Margarette Duarte on 03-22-2023 Cholesterol in LDL [Mass/Vol] 180 mg/dL 0-100 [facility] Comment on above: LDL ATP III CLASSIFI CATIONLDL less than 100 mg/dL OptimalLDL 100-129 mg/dL Near or above optimalLDL 130-159 mg/dL Borderline highLDL 160-189 mg/dL HighLDL greater than 189 mg/dL Very high Cholesterol in VLDL Calc [Ma ss/Vol]Ordered By: Margarette Duarte on 03-22-2023 Cholesterol in VLDL [Mass/Vol] 24 mg/dL [facility] Creatinine [Mass/volume] in Serum or PlasmaOrdered By: Margarette Duarte on 03-22-2023 Creatinine [Mass/Vol] 0.91 mg/dL 0.60-1.20 [facility] Eosinophils Auto (Bld) [#/Vo l]Ordered By: Margarette Duarte on 03-22-2023 Eosinophils (Bld) [#/Vol] 0.2 10*3/uL 0.0-0.45 [facility] Eosinophils/100 WBC Auto (Bl d)Ordered By: Margarette Duarte on 03-22-2023 Eosinophils/100 WBC (Bld) 4.5 % . [facility] Erythrocyte distribution wid th Auto (RBC) [Ratio]Ordered By: Margarette Duarte on 03-22-2023 Erythrocyte distribution width (RBC) [Ratio] 13.4 % 11.9-15.3 [facility] Globulin Calc (S) [Mass/Vol] Ordered By: Margarette Duarte on 03-22-2023 Globulin (S) [Mass/Vol] 2.6 g/dL [facility] Glucose [Mass/volume] in Ser um or PlasmaOrdered By: Margarette Duarte on 03-22-2023 Glucose [Mass/Vol] 100 mg/dL 70-100 [facility] Comment on above: ADA recommended [...] from glycated hemoglobin (Bld) [Mass/Vol] 117 mg/dL [facility] Hematocrit Auto (Bld) [Volum e fraction]Ordered By: Margarette Duarte on 03-22-2023 Hematocrit (Bld) [Volume fraction] 38.3 % 34.0-46.4 [facility] Hemoglobin A1c percentageOrd ered By: Margarette Duarte on 03-22-2023 HbA1c (Bld) [Mass fraction] 5.7 % 4.3-5.6 [facility] Comment on above: Increased risk for d iabetes: 5.7 - 6.4diabetes: >6.4glycemic control for adults with diabetes: <7.0 Hemoglobin [Mass/volume] in BloodOrdered By: Margarette Duarte on 03-22-2023 Hemoglobin (Bld) [Mass/Vol] 13.1 g/dL 11.8-15.4 [facility] Leukocytes [#/volume] correc dano for nucleated erythrocytes in Blood by Automated counOrdered By: Margarette Duarte on 03-22-2023 WBC corrected for nucl RBC Auto (Bld) [#/Vol] 3.9 10*3/uL 3.8-11.6 [facility] Lymphocytes Auto (Bld) [#/Vo l]Ordered By: Margarette Duarte on 03-22-2023 Lymphocytes (Bld) [#/Vol] 1.5 10*3/uL 1.00-4.8 [facility] Lymphocytes/100 WBC Auto (Bl d)Ordered By: Margarette Duarte on 03-22-2023 Lymphocytes/100 WBC (Bld) 38.4 % . [facility] MCH Auto (RBC) [Entitic mass ]Ordered By: Margarette Duarte on 03-22-2023 MCH (RBC) [Entitic mass] 32.0 pg 24.7-34.3 [facility] MCHC Auto (RBC) [Mass/Vol]Or dered By: Margarette Duarte on 03-22-2023 MCHC (RBC) [Mass/Vol] 34.2 g/dL 32.0-35.0 [facility] MCV Auto (RBC) [Entitic vol] Ordered By: Margarette Duarte on 03-22-2023 MCV (RBC) [Entitic vol] 93.6 fL 80-100 [facility] Monocytes Auto (Bld) [#/Vol] Ordered By: Margarette Duarte on 03-22-2023 Monocytes (Bld) [#/Vol] 0.4 10*3/uL 0.0-0.8 [facility] Monocytes/100 WBC Auto (Bld) Ordered By: Margarette Duarte on 03-22-2023 Monocytes/100 WBC (Bld) 10.4 % . [facility] Neutrophils Auto (Bld) [#/Vo l]Ordered By: Margarette Duarte on 03-22-2023 Neutrophils (Bld) [#/Vol] 1.8 10*3/uL 1.8-7.7 [facility] Neutrophils/100 WBC Auto (Bl d)Ordered By: Margarette Duarte on 03-22-2023 Neutrophils/100 WBC (Bld) 46.0 % . [facility] No Panel InformationOrdered By: Margarette Duarte on 03-22-2023 Estimated GFR (CKD-EPI) > 60.0 mL/Min [facility] Creatinine Clearance (Chem N/A [facility] Nucleated erythrocytes [Pres ence] in Blood by Automated countOrdered By: Margarette Duarte on 03-22-2023 Nucleated RBC Auto Ql (Bld) 0.3 /100{WBC} 0-0.5 [facility] Platelet mean volume Auto (B ld) [Entitic vol]Ordered By: Margarette Duarte on 03-22-2023 Platelet mean volume (Bld) [Entitic vol] 8.1 fL 6.3-10.7 [facility] Platelets Auto (Bld) [#/Vol] Ordered By: Margarette Duarte on 03-22-2023 Platelets (Bld) [#/Vol] 225 10*3/uL 150-450 [facility] Potassium [Moles/volume] in Serum or PlasmaOrdered By: Margarette Duarte on 03-22-2023 Potassium [Moles/Vol] 4.2 mmol/L 3.5-5.1 [facility] Protein [Mass/volume] in Ser um or PlasmaOrdered By: Margarette Duarte on 03-22-2023 Protein [Mass/Vol] 6.9 g/dL 6.4-8.9 [facility] RBC Auto (Bld) [#/Vol]Ordere d By: Margarette Duarte on 03-22-2023 RBC (Bld) [#/Vol] 4.09 10*6/uL 3.60-5.[address] [facility] Serum or plasma albumin/glob ulin mass ratioOrdered By: Margarette Duarte on 03-22-2023 Albumin/Globulin [Mass ratio] 1.7 {ratio} [facility] Serum or plasma anion gap de terminationOrdered By: Margarette Duarte on 03-22-2023 Anion gap [Moles/Vol] 13.3 mmol/L 6.0-15.0 [facility] Serum or plasma high density lipoprotein (HDL) cholesterol measurementOrdered By: Margarette Duarte on 03-22-2023 Cholesterol in HDL [Mass/Vol] 72 mg/dL 23-92 [facility] Comment on above: HDL CHOL ATP-III CLA SSIFICATION Cardiovascular RiskHDL > or equal to 60 mg/dL LOWHDL < 40 mg/dL HIGH Serum or plasma total choles terol/high density lipoprotein (HDL) cholesterol mass ratOrdered By: Margarette Duarte on 03-22-2023 Cholesterol.total/Ora sterol in HDL [Mass ratio] 3.8 {ratio} <5.0 [facility] Sodium [Moles/volume] in Ser um or PlasmaOrdered By: Margarette Duarte on 03-22-2023 Sodium [Moles/Vol] 141 mmol/L 136-145 [facility] Thyrotropin [Units/volume] i n Serum or PlasmaOrdered By: Margarette Duarte on 03-22-2023 TSH Qn 0.51 m[IU]/L 0.45-5.33 [facility] Thyroxine (T4) free [Mass/vo lume] in Serum or PlasmaOrdered By: Margarette Duarte on 03-22-2023 Free T4 [Mass/Vol] 0.98 ng/dL 0.61-1.12 [facility] Triglyceride [Mass/volume] i n Serum or PlasmaOrdered By: Margarette Duarte on 03-22-2023 Triglyceride [Mass/Vol] 122 mg/dL 0-149 [facility] Comment on above: TRIG ATP III CLASSIF ICATIONTRIG less than 150 mg/dL NormalTRIG 150-199 mg/dL Borderline highTRIG 200-500 mg/dL High TRIG greater than 500 mg/dL Very highStandard traceable to the Center for Disease Conrtrol and Prevention (CDC) test method. Triiodothyronine (T3) Free [ Mass/volume] in Serum or PlasmaOrdered By: Margarette Duarte on 03-22-2023 Free T3 [Mass/Vol] 3.18 pg/mL 2.50-3.90 [facility] Urea nitrogen [Mass/volume] in Serum or PlasmaOrdered By: Margarette Duarte on 03-22-2023 Urea nitrogen [Mass/Vol] 21 mg/dL 7-25 [facility] WBC Auto (Bld) [#/Vol]Ordere d By: Margarette Duarte on 03-22-2023 WBC (Bld) [#/Vol] 3.9 10*3/uL 3.8-11.6 [facility] Alanine aminotransferase [En zymatic activity/volume] in Serum or PlasmaOrdered By: Margarette Duarte on 09-15-2022 ALT [Catalytic activity/Vol] 21 U/L 7-52 [facility] Albumin [Mass/volume] in Ser um or Plasma by Bromocresol green (BCG) dye binding methoOrdered By: Margarette Duarte on 09-15-2022 Albumin BCG dye [Mass/Vol] 4.4 g/dL 3.5-5.7 [facility] Alkaline phosphatase [Enzyma tic activity/volume] in Serum or PlasmaOrdered By: Margarette Duarte on 09-15-2022 ALP [Catalytic activity/Vol] 81 U/L 34-104 [facility] Aspartate aminotransferase [ Enzymatic activity/volume] in Serum or PlasmaOrdered By: aMrgarette Duarte on 09-15-2022 AST [Catalytic activity/Vol] 22 U/L 13-39 [facility] Automated erythrocytes count in urine sediment (number/area)Ordered By: Margarette Duarte on 09-15-2022 RBC Auto (Urine sed) [#/Area] 1-2 [HPF] 0-4 [facility] Automated leukocytes count i n urine sediment (number/area)Ordered By: Margarette Duarte on 09-15-2022 WBC Auto (Urine sed) [#/Area] 3-4 [HPF] 0-4 [facility] Basophils Auto (Bld) [#/Vol] Ordered By: Margarette Duarte on 09-15-2022 Basophils (Bld) [#/Vol] 0.0 10*3/uL 0.0-0.2 [facility] Basophils/100 WBC Auto (Bld) Ordered By: Margarette Duarte on 09-15-2022 Basophils/100 WBC (Bld) 0.7 % . [facility] Bilirubin Test strip Ql (U)O rdered By: Margarette Duarte on 09-15-2022 Bilirubin Ql (U) Negative Negative [facility] Bilirubin.total [Mass/volume ] in Serum or PlasmaOrdered By: Margarette Duarte on 09-15-2022 Bilirubin [Mass/Vol] 0.5 mg/dL 0.3-1.0 [facility] Calcium [Mass/volume] in Ser um or PlasmaOrdered By: Margarette Duarte on 09-15-2022 Calcium [Mass/Vol] 9.5 mg/dL 8.6-10.3 [facility] Carbon dioxide, total [Moles /volume] in Serum or PlasmaOrdered By: Margarette Duarte on 09-15-2022 CO2 [Moles/Vol] 29.4 mmol/L 21.0-31.0 [facility] Chloride [Moles/volume] in S may or PlasmaOrdered By: Margarette Duarte on 09-15-2022 Chloride [Moles/Vol] 106 mmol/L 98-107 [facility] Cholesterol [Mass/volume] in Serum or PlasmaOrdered By: Margarette Duarte on 09-15-2022 Cholesterol [Mass/Vol] 262 mg/dL 140-200 [facility] Comment on above: Chol less than 200 m g/dl low riskChol 201-239 mg/dl borderline riskChol 240 mg/dl and greater high risk Cholesterol in LDL Calc [Mas s/Vol]Ordered By: Margarette Duarte on 09-15-2022 Cholesterol in LDL [Mass/Vol] 173 mg/dL 0-100 [facility] Comment on above: LDL ATP III CLASSIFI CATIONLDL less than 100 mg/dL OptimalLDL 100-129 mg/dL Near or above optimalLDL 130-159 mg/dL Borderline highLDL 160-189 mg/dL HighLDL greater than 189 mg/dL Very high Cholesterol in VLDL Calc [Ma ss/Vol]Ordered By: Margarette Duarte on 09-15-2022 Cholesterol in VLDL [Mass/Vol] 15 mg/dL [facility] Color Auto (U)Ordered By: Vivek Duarte on 09-15-2022 Color (U) Yellow Yellow [facility] Creatinine [Mass/volume] in Serum or PlasmaOrdered By: Margarette Duarte on 09-15-2022 Creatinine [Mass/Vol] 0.82 mg/dL 0.60-1.20 [facility] Eosinophils Auto (Bld) [#/Vo l]Ordered By: Margarette Duarte on 09-15-2022 Eosinophils (Bld) [#/Vol] 0.3 10*3/uL 0.0-0.45 [facility] Eosinophils/100 WBC Auto (Bl d)Ordered By: Margarette Duarte on 09-15-2022 Eosinophils/100 WBC (Bld) 8.1 % . [facility] Erythrocyte distribution wid th Auto (RBC) [Ratio]Ordered By: Margarette Duarte on 09-15-2022 Erythrocyte distribution width (RBC) [Ratio] 13.3 % 11.9-15.3 [facility] Globulin Calc (S) [Mass/Vol] Ordered By: Margarette Duarte on 09-15-2022 Globulin (S) [Mass/Vol] 2.5 g/dL [facility] Glucose [Mass/volume] in Ser um or PlasmaOrdered By: Margarette Duarte on 09-15-2022 Glucose [Mass/Vol] 101 mg/dL 74-109 [facility] Comment on above: ADA recommended [...] from glycated hemoglobin (Bld) [Mass/Vol] 117 mg/dL [facility] Hematocrit Auto (Bld) [Volum e fraction]Ordered By: Margarette Duarte on 09-15-2022 Hematocrit (Bld) [Volume fraction] 39.0 % 34.0-46.4 [facility] Hemoglobin A1c percentageOrd ered By: Margarette Duarte on 09-15-2022 HbA1c (Bld) [Mass fraction] 5.7 % 4.3-5.6 [facility] Comment on above: Increased risk for d iabetes: 5.7 - 6.4diabetes: >6.4glycemic control for adults with diabetes: <7.0 Hemoglobin [Mass/volume] in BloodOrdered By: Margarette Duarte on 09-15-2022 Hemoglobin (Bld) [Mass/Vol] 13.3 g/dL 11.8-15.4 [facility] Ketones Auto test strip (U) [Mass/Vol]Ordered By: Margarette Duarte on 09-15-2022 Ketones (U) [Mass/Vol] Trace Negative [facility] Laboratory - Chemistry and C hemistry - challengeOrdered By: Margarette Duarte on 09-15-2022 GFR/1.73 sq M.predicted MDRD (S/P/Bld) [Vol rate/Area] mL/min/{1.73_m2} [facility] Laboratory - UrinalysisOrder ed By: Margarette Duarte on 09-15-2022 Hyaline casts LM Ql (Urine sed) 0-8 [LPF] 0-8 [facility] Leukocytes [#/volume] correc dano for nucleated erythrocytes in Blood by Automated counOrdered By: Margarette Duarte on 09-15-2022 WBC corrected for nucl RBC Auto (Bld) [#/Vol] 4.1 10*3/uL 3.8-11.6 [facility] Lymphocytes Auto (Bld) [#/Vo l]Ordered By: Margarette Duarte on 09-15-2022 Lymphocytes (Bld) [#/Vol] 1.6 10*3/uL 1.00-4.8 [facility] Lymphocytes/100 WBC Auto (Bl d)Ordered By: Margarette Duarte on 09-15-2022 Lymphocytes/100 WBC (Bld) 38.0 % . [facility] MCH Auto (RBC) [Entitic mass ]Ordered By: Margarette Duarte on 09-15-2022 MCH (RBC) [Entitic mass] 31.6 pg 24.7-34.3 [facility] MCHC Auto (RBC) [Mass/Vol]Or dered By: Margarette Duarte on 09-15-2022 MCHC (RBC) [Mass/Vol] 34.2 g/dL 32.0-35.0 [facility] MCV Auto (RBC) [Entitic vol] Ordered By: Margarette Duarte on 09-15-2022 MCV (RBC) [Entitic vol] 92.5 fL 80-100 [facility] Monocytes Auto (Bld) [#/Vol] Ordered By: Margaretet Duarte on 09-15-2022 Monocytes (Bld) [#/Vol] 0.5 10*3/uL 0.0-0.8 [facility] Monocytes/100 WBC Auto (Bld) Ordered By: Margarette Duarte on 09-15-2022 Monocytes/100 WBC (Bld) 11.0 % . [facility] Neutrophils Auto (Bld) [#/Vo l]Ordered By: Margarette Duarte on 09-15-2022 Neutrophils (Bld) [#/Vol] 1.8 10*3/uL 1.8-7.7 [facility] Neutrophils/100 WBC Auto (Bl d)Ordered By: Margarette Duarte on 09-15-2022 Neutrophils/100 WBC (Bld) 42.2 % . [facility] Nitrite Test strip Ql (U)Ord ered By: Margarette Duarte on 09-15-2022 Nitrite Ql (U) Negative Negative [facility] No Panel InformationOrdered By: Margarette Duarte on 09-15-2022 Pharmacy Creatinine Clearance (Chem N/A [facility] Nucleated erythrocytes [Pres ence] in Blood by Automated countOrdered By: Margarette Duarte on 09-15-2022 Nucleated RBC Auto Ql (Bld) 0.1 /100{WBC} 0-0.5 [facility] Platelet mean volume Auto (B ld) [Entitic vol]Ordered By: Margarette Duarte on 09-15-2022 Platelet mean volume (Bld) [Entitic vol] 7.8 fL 6.3-10.7 [facility] Platelets Auto (Bld) [#/Vol] Ordered By: Margarette Duarte on 09-15-2022 Platelets (Bld) [#/Vol] 241 10*3/uL 150-450 [facility] Potassium [Moles/volume] in Serum or PlasmaOrdered By: Margarette Duarte on 09-15-2022 Potassium [Moles/Vol] 4.2 mmol/L 3.5-5.1 [facility] Protein Auto test strip (U) [Mass/Vol]Ordered By: Margarette Duarte on 09-15-2022 Protein (U) [Mass/Vol] Trace mg/dL Negative [facility] Protein [Mass/volume] in Ser um or PlasmaOrdered By: Margarette Duarte on 09-15-2022 Protein [Mass/Vol] 6.9 g/dL 6.4-8.9 [facility] RBC Auto (Bld) [#/Vol]Ordere d By: Margarette Duarte on 09-15-2022 RBC (Bld) [#/Vol] 4.22 10*6/uL 3.60-5.[address] [facility] Serum or plasma albumin/glob ulin mass ratioOrdered By: Margarette Duarte on 09-15-2022 Albumin/Globulin [Mass ratio] 1.8 {ratio} [facility] Serum or plasma anion gap de terminationOrdered By: Margarette Duarte on 09-15-2022 Anion gap [Moles/Vol] 9.8 mmol/L 6.0-15.0 [facility] Serum or plasma high density lipoprotein (HDL) cholesterol measurementOrdered By: Margarette Duarte on 09-15-2022 Cholesterol in HDL [Mass/Vol] 73 mg/dL 35-85 [facility] Comment on above: HDL CHOL ATP-III CLA SSIFICATION Cardiovascular RiskHDL > or equal to 60 mg/dL LOWHDL < 40 mg/dL HIGH Serum or plasma total choles terol/high density lipoprotein (HDL) cholesterol mass ratOrdered By: Margarette Duarte on 09-15-2022 Cholesterol.total/Ora sterol in HDL [Mass ratio] 3.6 {ratio} <5.0 [facility] Sodium [Moles/volume] in Ser um or PlasmaOrdered By: Margarette Duarte on 09-15-2022 Sodium [Moles/Vol] 141 mmol/L 136-145 [facility] Specific gravity Auto test s trip (U) [Rel density]Ordered By: Margarette Duarte on 09-15-2022 Specific gravity (U) [Rel density] 1.022 1.001-1.030 [facility] Squamous epithelial cells de tection in urine sediment by light microscopyOrdered By: Margarette Duarte on 09-15-2022 Epithelial cells.squamous LM Ql (Urine sed) 0-1 [HPF] 0-2 [facility] Thyrotropin [Units/volume] i n Serum or PlasmaOrdered By: Margarette Duarte on 09-15-2022 TSH Qn 0.12 m[IU]/L 0.45-5.33 [facility] Thyroxine (T4) free [Mass/vo lume] in Serum or PlasmaOrdered By: Margarette Duarte on 09-15-2022 Free T4 [Mass/Vol] 1.30 ng/dL 0.61-1.12 [facility] Triglyceride [Mass/volume] i n Serum or PlasmaOrdered By: Margarette Duarte on 09-15-2022 Triglyceride [Mass/Vol] 79 mg/dL 0-149 [facility] Comment on above: TRIG ATP III CLASSIF ICATIONTRIG less than 150 mg/dL NormalTRIG 150-199 mg/dL Borderline highTRIG 200-500 mg/dL High TRIG greater than 500 mg/dL Very highStandard traceable to the Center for Disease Conrtrol and Prevention (CDC) test method. Triiodothyronine (T3) Free [ Mass/volume] in Serum or PlasmaOrdered By: Margarette Duarte on 09-15-2022 Free T3 [Mass/Vol] 3.21 pg/mL 2.50-3.90 [facility] Urea nitrogen [Mass/volume] in Serum or PlasmaOrdered By: Margarette Duarte on 09-15-2022 Urea nitrogen [Mass/Vol] 17 mg/dL 7-25 [facility] Urine bacteria detection by automated methodOrdered By: Margarette Duarte on 09-15-2022 Bacteria Auto Ql (U) None seen None Seen [facility] Urine clarity by refractomet ry automatedOrdered By: Margarette Duarte on 09-15-2022 Clarity Refractometry automated (U) Clear Clear [facility] Urine glucose measurement by automated test strip (mass/volume)Ordered By: Margarette Duarte on 09-15-2022 Glucose Auto test strip (U) [Mass/Vol] Normal mg/dL Normal [facility] Urine hemoglobin detection b y automated test stripOrdered By: Margarette Duarte on 09-15-2022 Hemoglobin Auto test strip Ql (U) Negative Negative [facility] Urine leukocyte esterase det ection by automated test stripOrdered By: Margarette Duarte on 09-15-2022 Leukocyte esterase Auto test strip Ql (U) 2+ Negative [facility] Urobilinogen Auto test strip (U) [Mass/Vol]Ordered By: Margarette Duarte on 09-15-2022 Urobilinogen (U) [Mass/Vol] Normal mg/dL Normal [facility] WBC Auto (Bld) [#/Vol]Ordere d By: Margarette Duarte on 09-15-2022 WBC (Bld) [#/Vol] 4.1 10*3/uL 3.8-11.6 [facility] pH Auto test strip (U)Ordere d By: Margarette Duarte on 09-15-2022 pH (U) 6.0 [pH] 5.0-9.0 [facility] Basophils Auto (Bld) [#/Vol] Ordered By: Margarette Duarte on 03-12-2022 Basophils (Bld) [#/Vol] 0.0 10*3/uL 0.0-0.2 [facility] Basophils/100 WBC Auto (Bld) Ordered By: Margarette Duarte on 03-12-2022 Basophils/100 WBC (Bld) 0.9 % . [facility] Blood hemoglobin measurement (mass/volume)Ordered By: Margarette Duarte on 03-12-2022 Hemoglobin (Bld) [Mass/Vol] 13.5 g/dL 11.8-15.4 [facility] Blood leukocytes automated c ount (number/volume)Ordered By: Margarette Duarte on 03-12-2022 WBC (Bld) [#/Vol] 4.3 10*3/uL 4.5-11.0 [facility] Body fluid albumin measureme nt (mass/volume)Ordered By: Margarette Duarte on 03-12-2022 Albumin (Body fld) [Mass/Vol] 4.0 g/dL 3.2-5.5 [facility] Cholesterol [Mass/volume] in Serum or PlasmaOrdered By: Margarette Duarte on 03-12-2022 Cholesterol [Mass/Vol] 323 mg/dL 140-200 [facility] Comment on above: Chol less than 200 m g/dl low risk Chol 201-239 mg/dl borderline risk Chol 240 mg/dl and greater high risk Cholesterol in LDL Calc [Mas s/Vol]Ordered By: Margarette Duarte on 03-12-2022 Cholesterol in LDL [Mass/Vol] 228 mg/dL 0-100 [facility] Comment on above: LDL ATP III CLASSIFI CATION LDL less than 100 mg/dL Optimal LDL 100-129 mg/dL Near or above optimal LDL 130-159 mg/dL Borderline high LDL 160-189 mg/dL High LDL greater than 189 mg/dL Very high Cholesterol in VLDL Calc [Ma ss/Vol]Ordered By: Margarette Duarte on 03-12-2022 Cholesterol in VLDL [Mass/Vol] 18 mg/dL [facility] Creatinine and Glomerular fi ltration rate.predicted panel (S/P/Bld)Ordered By: Margarette Duarte on 03-12-2022 Creatinine [Mass/Vol] 0.90 mg/dL 0.44-1.03 [facility] Eosinophils Auto (Bld) [#/Vo l]Ordered By: Margarette Duarte on 03-12-2022 Eosinophils (Bld) [#/Vol] 0.2 10*3/uL 0.0-0.45 [facility] Eosinophils/100 WBC Auto (Bl d)Ordered By: Margarette Duarte on 03-12-2022 Eosinophils/100 WBC (Bld) 3.8 % . [facility] Erythrocyte distribution wid th Auto (RBC) [Ratio]Ordered By: Margarette Duarte on 03-12-2022 Erythrocyte distribution width (RBC) [Ratio] 13.7 % 11.9-15.3 [facility] Estimated glomerular filtrat ion rate (GFR) non- AmericanOrdered By: Margarette Duarte on 03-12-2022 GFR/1.73 sq M.predicted among non-blacks MDRD (S/P/Bld) [Vol rate/Area] > 60 mL/Min [facility] Globulin Calc (S) [Mass/Vol] Ordered By: Margarette Duarte on 03-12-2022 Globulin (S) [Mass/Vol] 2.8 g/dL [facility] Glucose mean value [Mass/vol ume] in Blood Estimated from glycated hemoglobinOrdered By: Margarette Duarte on 03-12-2022 Average glucose Estimated from glycated hemoglobin (Bld) [Mass/Vol] 114 mg/dL [facility] Hematocrit Auto (Bld) [Volum e fraction]Ordered By: Margarette Duarte on 03-12-2022 Hematocrit (Bld) [Volume fraction] 40.1 % 34.0-46.4 [facility] Hemoglobin A1c percentageOrd ered By: Margarette Duarte on 03-12-2022 HbA1c (Bld) [Mass fraction] 5.6 % 4.3-5.6 [facility] Comment on above: Increased risk for d iabetes: 5.7 - 6.4 diabetes: >6.4 glycemic control for adults with diabetes: <7.0 Laboratory - Hematology and Cell countsOrdered By: Margarette Duarte on 03-12-2022 Nucleated RBC/100 WBC (Bld) [Ratio] 0.1 % 0-0.5 [facility] Lymphocytes Auto (Bld) [#/Vo l]Ordered By: Margarette Duarte on 03-12-2022 Lymphocytes (Bld) [#/Vol] 1.6 10*3/uL 1.00-4.8 [facility] Lymphocytes/100 WBC Auto (Bl d)Ordered By: Margarette Duarte on 03-12-2022 Lymphocytes/100 WBC (Bld) 36.9 % . [facility] MCH Auto (RBC) [Entitic mass ]Ordered By: Margarette Duarte on 03-12-2022 MCH (RBC) [Entitic mass] 32.0 pg 24.7-34.3 [facility] MCHC Auto (RBC) [Mass/Vol]Or dered By: Margarette Duarte on 03-12-2022 MCHC (RBC) [Mass/Vol] 33.6 g/dL 32.0-35.0 [facility] MCV Auto (RBC) [Entitic vol] Ordered By: Margarette Duarte on 03-12-2022 MCV (RBC) [Entitic vol] 95.1 fL 80-100 [facility] Monocytes Auto (Bld) [#/Vol] Ordered By: Margarette Duarte on 03-12-2022 Monocytes (Bld) [#/Vol] 0.4 10*3/uL 0.0-0.8 [facility] Monocytes/100 WBC Auto (Bld) Ordered By: Margarette Duarte on 03-12-2022 Monocytes/100 WBC (Bld) 9.8 % . [facility] Neutrophils Auto (Bld) [#/Vo l]Ordered By: Margarette Duarte on 03-12-2022 Neutrophils (Bld) [#/Vol] 2.1 10*3/uL 1.8-7.7 [facility] Neutrophils/100 WBC Auto (Bl d)Ordered By: Margarette Duarte on 03-12-2022 Neutrophils/100 WBC (Bld) 48.6 % . [facility] No Panel InformationOrdered By: Margarette Duarte on 03-12-2022 Estimated GFR () > 60 mL/Min [facility] Comment on above: GFR estimated refere nce range: According to KDOQI guidelines, <60 ml/min/1.73m2 is sufficient to diagnose a patient with chronic kidney disease. Pharmacy Creatinine Clearance (Chem N/A [facility] Platelet mean volume Auto (B ld) [Entitic vol]Ordered By: Margarette Duarte on 03-12-2022 Platelet mean volume (Bld) [Entitic vol] 7.7 fL 6.3-10.7 [facility] Platelets Auto (Bld) [#/Vol] Ordered By: Margarette Duarte on 03-12-2022 Platelets (Bld) [#/Vol] 291 10*3/uL 150-450 [facility] Protein [Mass/volume] in Ser um or PlasmaOrdered By: Margarette Duarte on 03-12-2022 Protein [Mass/Vol] 6.8 g/dL 6.1-7.9 [facility] RBC Auto (Bld) [#/Vol]Ordere d By: Margarette Duarte on 03-12-2022 RBC (Bld) [#/Vol] 4.21 10*6/uL 3.60-5.[address] [facility] Serum or plasma alanine crenshaw otransferase measurement without P-5'-P (enzymatic activiOrdered By: Margarette Duarte on 03-12-2022 ALT No additional P-5'-P [Catalytic activity/Vol] 31 U/L 10-60 [facility] Serum or plasma albumin/glob ulin mass ratioOrdered By: Margarette Duarte on 03-12-2022 Albumin/Globulin [Mass ratio] 1.4 {ratio} [facility] Serum or plasma alkaline stephanie sphatase measurement (enzymatic activity/volume)Ordered By: Margarette Duarte on 03-12-2022 ALP [Catalytic activity/Vol] 83 U/L 32-92 [facility] Serum or plasma anion gap de terminationOrdered By: Margarette Duarte on 03-12-2022 Anion gap [Moles/Vol] 13.7 mmol/L 6.0-15.0 [facility] Serum or plasma aspartate am inotransferase measurement (enzymatic activity/volume)Ordered By: Margarette Duarte on 03-12-2022 AST [Catalytic activity/Vol] 29 U/L 10-42 [facility] Serum or plasma calcium jeannette urement (mass/volume)Ordered By: Margarette Duarte on 03-12-2022 Calcium [Mass/Vol] 9.7 mg/dL 8.2-10.2 [facility] Serum or plasma chloride újnior surement (moles/volume)Ordered By: Margarette Duarte on 03-12-2022 Chloride [Moles/Vol] 103 mmol/L 95-114 [facility] Serum or plasma glucose jeannette urement (mass/volume)Ordered By: Margarette Duarte on 03-12-2022 Glucose [Mass/Vol] 97 mg/dL 70-100 [facility] Comment on above: ADA recommended refe rence range Random Glucose Reference Range is dependent on time and content of last meal. Glucose of more than 200 mg/dL in a nonstressed, ambulatory subject supports the diagnosis of Diabetes Mellitus. Serum or plasma high density lipoprotein (HDL) cholesterol measurementOrdered By: Margarette Duarte on 03-12-2022 Cholesterol in HDL [Mass/Vol] 77 mg/dL 35-85 [facility] Comment on above: HDL CHOL ATP-III CLA SSIFICATION Cardiovascular Risk HDL > or equal to 60 mg/dL LOW HDL < 40 mg/dL HIGH Serum or plasma potassium me asurement (moles/volume)Ordered By: Margarette Duarte on 03-12-2022 Potassium [Moles/Vol] 4.5 mmol/L 3.5-5.1 [facility] Serum or plasma sodium measu rement (moles/volume)Ordered By: Margarette Duarte on 03-12-2022 Sodium [Moles/Vol] 138 mmol/L 136-146 [facility] Serum or plasma total biliru bin measurement (mass/volume)Ordered By: Margarette Duarte on 03-12-2022 Bilirubin [Mass/Vol] 0.8 mg/dL 0.3-1.2 [facility] Serum or plasma total carbon dioxide measurement (moles/volume)Ordered By: Margarette Duarte on 03-12-2022 CO2 [Moles/Vol] 25.8 mmol/L 22.0-30.0 [facility] Serum or plasma total choles terol/high density lipoprotein (HDL) cholesterol mass ratOrdered By: Margarette Duarte on 03-12-2022 Cholesterol.total/Ora sterol in HDL [Mass ratio] 4.2 {ratio} <5.0 [facility] Serum or plasma urea nitroge n measurement (mass/volume)Ordered By: Margarette Duarte on 03-12-2022 Urea nitrogen [Mass/Vol] 16 mg/dL 9-23 [facility] TSH DL <= 0.005 mIU/L QnOrde red By: Margarette Duarte on 03-12-2022 TSH Qn 10.73 m[IU]/L 0.45-5.33 [facility] Thyroxine (T4) free [Mass/vo lume] in Serum or PlasmaOrdered By: Margarette Duarte on 03-12-2022 Free T4 [Mass/Vol] 0.84 ng/dL 0.61-1.12 [facility] Triglyceride [Mass/volume] i n Serum or PlasmaOrdered By: Margarette Duarte on 03-12-2022 Triglyceride [Mass/Vol] 92 mg/dL 35-149 [facility] Comment on above: TRIG ATP III CLASSIF ICATION TRIG less than 150 mg/dL Normal TRIG 150-199 mg/dL Borderline high TRIG 200-500 mg/dL High TRIG greater than 500 mg/dL Very high Standard traceable to the Center for Disease Conrtrol and Prevention (CDC) test method. Triiodothyronine (T3) Free [ Mass/volume] in Serum or PlasmaOrdered By: Margarette Duarte on 03-12-2022 Free T3 [Mass/Vol] 2.88 pg/mL 2.50-3.90 [facility] Covid-19 PCR (CVDTB)on 08-05 SARS-CoV-2 (COVID-19) RNA ELSI+probe Ql (Unsp spec) Not detected Normal NOT DETECTED [facility] Comment on above: Result Comment: This test is not yet approved or cleared by the [place] FDA. When there are no FDA-approved or cleared tests available, and other criteria are met, FDA can make tests available under an emergency access mechanism called an Emergency Use Authorization (EUA). The EUA for this test is supported by the [employer] of Health and Human Service's (HHS's) declaration [...] consistent with SARS-CoV-2. Performed By: #### [facility] #### [facility] [address] [address] [address] Ayden WILLIAM Quick Testingon 2020 Result Positive [employer] Other [facility] CARDIAC STRESS/REST (BARBARA CARDIAL PERFUSION/MIBI)on 10-07-2020 [facility] CARDIAC STRESS/REST (MYOCARDIAL PERFUSION/MIBI) Patient Name: ZENY SEGOVIA STUDY: MYOCARDIAL PERFUSION STRESS TEST WITH EXERCISE Performing facility: [facility], [address] [place] [address], [address], [place], [place] [address] Provider: Boris Cortez MD PCP: Dr. Grecia Duarte Supervising provider: Manny Pantoja MD, [facility] INDICATION: Chest Pain; Difficulty breathing HISTORY: Gender: F; Age: 74 y/o ; Height: 149.86 cm; Weight: 58.2799409 kg. High Cholesterol; Family HX CAD; HTN; Palpitations; Chest Pain; SOB; Denies smoking. COMPARISON: Previous nuclear testing completed at [facility]. ACCESSION NUMBER(S): [id number]; [id number]; [id number] ORDERING CLINICIAN: BORIS CORTEZ TECHNIQUE: ONE DAY [...] Electronically signed by: MANNY PANTOJA MD Normal [facility] CARDIAC STRESS/REST INJE CTIONon 10-07-2020 [facility] CARDIAC STRESS/REST INJECTION Patient Name: ZENY SEGOVIA STUDY: MYOCARDIAL PERFUSION STRESS TEST WITH EXERCISE Performing facility: [facility], [address] [place] [address], [address], [address] Provider: Boris Cortez MD PCP: Dr. Grecia Duarte Supervising provider: Manny Pantoja MD, [facility] INDICATION: Chest Pain; Difficulty breathing HISTORY: Gender: F; Age: 74 y/o ; Height: 149.86 cm; Weight: 58.7059708 kg. High Cholesterol; Family HX CAD; HTN; Palpitations; Chest Pain; SOB; Denies smoking. COMPARISON: Previous nuclear testing completed at [facility]. ACCESSION NUMBER(S): [id number]; [id number]; [id number] ORDERING CLINICIAN: BORIS CORTEZ TECHNIQUE: ONE DAY [...] changes. Electronically signed by: MANNY PANTOJA MD [facility] PART 2 STRESS OR REST (N O CHARGE)on 10-07-2020 [facility] PART 2 STRESS OR REST (NO CHARGE) Patient Name: ZENY SEGOVIA STUDY: MYOCARDIAL PERFUSION STRESS TEST WITH EXERCISE Performing facility: [facility], [address] [place] [address], [address], [address] Provider: Boris Cortez MD PCP: Dr. Grecia Duarte Supervising provider: Manny Pantoja MD, [facility] INDICATION: Chest Pain; Difficulty breathing HISTORY: Gender: F; Age: 74 y/o ; Height: 149.86 cm; Weight: 58.7232321 kg. High Cholesterol; Family HX CAD; HTN; Palpitations; Chest Pain; SOB; Denies smoking. COMPARISON: Previous nuclear testing completed at [facility]. ACCESSION NUMBER(S): [id number]; [id number]; [id number] ORDERING CLINICIAN: BORIS CORTEZ TECHNIQUE: ONE DAY [...] Electronically signed by: MANNY PANTOJA MD Normal [facility] Vital Signs Date Time Vital Sign Value Performing Clinician Facility 03-20-2024 10:52-0400 Body height 151.77 cm DO Margarette Duarte Work Phone: [facility] 03-20-2024 10:52-0400 Body mass index (BMI) [Ratio] 26.2 kg/m2 DO Margarette Duarte Work Phone: [facility] 03-20-2024 10:52-0400 Body temperature 97.9 [degF] DO Margarette Duarte Work Phone: [facility] 03-20-2024 10:52-0400 Body weight 60.32 kg DO Margarette Duarte Work Phone: [facility] 03-20-2024 10:52-0400 Diastolic blood pressure 80 mm[Hg] DO Margarette Duarte Work Phone: [facility] 03-20-2024 10:52-0400 Heart rate 82 /min DO Margarette Duarte Work Phone: [facility] 03-20-2024 10:52-0400 Respiratory rate 18 /min DO Margarette Duarte Work Phone: [facility] 03-20-2024 10:52-0400 SaO2% (BldA) [Mass fraction] 97 % DO Margarette Duarte Work Phone: [facility] 03-20-2024 10:52-0400 Systolic blood pressure 174 mm[Hg] DO Margarette Duarte Work Phone: [facility] 09-16-2022 11:30-0400 Body height 151.77 cm Margarette Gerald Other [facility] [employer] Other 05-16-2021 16:45-0500 Body height 151.77 cm Bernardajethro Watson Other [employer] Other 05-16-2021 16:45-0500 Body temperature 96.6 [degF] Bernarda Shirley Other [employer] Other 05-16-2021 16:45-0500 Respiratory rate 18 /min Bernarda Watson Other [employer] Other 05-16-2021 16:45-0500 SaO2% (BldA) [Mass fraction] 98 % Bernarda Watson Other [employer] Other Encounters Encounter Date Encounter Type Care Provider Facility Start: 03-20-2024 End: 03-20-2024 ambulatory DO Margarette Duarte Work Phone: [facility] Work Phone: Start: 03-20-2024 End: 03-20-2024 Patient encounter procedure DO Margarette Duarte Work Phone: [facility] Work Phone: Start: 11-26-2023 End: 11-26-2023 ambulatory DO Margarette Duarte Work Phone: [facility] Work Phone: Start: 11-26-2023 End: 11-26-2023 Patient encounter procedure DO Margarette Gerald Work Phone: [facility] [place] Work Phone: Start: 11-16-2023 End: 11-16-2023 Patient encounter procedure DO [facility] Start: 11-16-2023 End: 11-16-2023 ambulatory Margarette Duarte Facility:[facility] Start: 08-31-2023 Non-patient / Non-visit DO Richard mario Duarte Work Phone: [facility] [employer] Work Phone: Start: 08-05-2023 End: 08-05-2023 ambulatory Margarette Duarte Other [employer] Other Start: 08-05-2023 Telephone encounter Margarette Duarte [facility] Start: 03-25-2023 End: 03-25-2023 ambulatory Margarette Duarte Other [employer] Other Start: 03-25-2023 Telephone encounter Margarette Duarte [facility] [place] Start: 03-22-2023 End: 03-22-2023 ambulatory DO Margarette Duarte Work Phone: [facility] Work Phone: Start: 03-22-2023 End: 03-22-2023 Patient encounter procedure DO Margarette Duarte Work Phone: [facility] Start: 10-28-2022 End: 10-28-2022 ambulatory Margarette Duarte Other [employer] Other Start: 10-28-2022 Telephone encounter Margarette Duarte [facility] Start: 09-17-2022 End: 09-17-2022 ambulatory Margarette Duarte Other [employer] Other Start: 09-17-2022 Telephone encounter Margarette Duarte [facility] [place] Start: 09-16-2022 End: 09-16-2022 ambulatory Margarette Duarte Other [employer] Other Start: 09-16-2022 Telephone encounter Margarette Duarte [facility] Start: 09-15-2022 End: 09-15-2022 ambulatory DO Margarette Duarte Work Phone: [facility] Work Phone: Start: 09-15-2022 End: 09-15-2022 Patient encounter procedure DO Margarette Duarte Work Phone: [facility] Start: 09-10-2022 End: 09-10-2022 ambulatory Margarette Duarte Other [employer] Other Start: 09-10-2022 Encounter for antibo dy response examination Margarette Duarte [facility] [place] Start: 09-10-2022 Telephone encounter Margarette Duarte [facility] Start: 06-01-2022 End: 06-01-2022 ambulatory Margarette Duarte Other [employer] Other Start: 06-01-2022 Telephone encounter Margarette Duarte [facility] Start: 03-25-2022 End: 03-25-2022 Patient encounter procedure DO Margarette Duarte Work Phone: [facility] Start: 03-17-2022 End: 03-17-2022 ambulatory Margarette Duarte Other [employer] Other Start: 03-17-2022 Telephone encounter [facility] Start: 03-12-2022 End: 03-12-2022 Patient encounter procedure DO Margarette Duarte Work Phone: [facility] Start: 01-30-2022 End: 01-30-2022 ambulatory Margarette Duarte Other [employer] Other Start: 01-30-2022 Telephone encounter Margarette Duarte [facility] [place] Start: 08-21-2021 End: 08-22-[address] MARGARETTE DUARTE Facility: Start: 08-19-2021 End: 08-19-2021 ambulatory Margarette Duarte Other [employer] Other Start: 08-19-2021 Telephone encounter Margarette Duarte [facility] Start: 07-15-2021 End: 07-15-2021 ambulatory Margarette Duarte Other [employer] Other Start: 07-15-2021 Telephone encounter Margarette Duarte [facility] Start: 07-09-2021 End: 07-09-2021 ambulatory Margarette Duarte Other [employer] Other Start: 07-09-2021 Encounter for antibo dy response examination Margarette Duarte [facility] Start: 07-09-2021 Telephone encounter Margarette Duarte [facility] [place] Start: 05-19-2021 End: 05-19-2021 ambulatory Margarette Duarte Other [employer] Other Start: 05-19-2021 Telephone encounter Margarette Duarte [facility] [place] Start: 05-16-2021 End: 05-16-2021 ambulatory Margarette Duarte Other [employer] Other Start: 05-16-2021 Office outpatient vi sit 15 minutes Bernarda Watson [facility] Start: 05-16-2021 Telephone encounter Margarette Duarte [facility] Start: 11-25-2017 Ambulatory BORIS CORTEZ Faci lity:[id number] Start: 11-25-2017 Ambulatory Margarette Duarte Facility :[id number] Procedures Date Procedure Procedure Detail Performing Clinician Start: 03-20-2024 X-ray of left foot DO Don Duarte Work Phone: Start: 11-16-2023 Urine culture DO Margarette Duarte Work Phone: Plan of Treatment Date Care Activity Detail Author Start: 09-15-2022 Bacteria identified in Urine by Culture [facility] Start: 03-25-2022 [facility] Work Phone: Apolipoprotein B [Ma ss/volume] in Serum or Plasma [facility] Work Phone: Beta lipoprotein sub particle measurement [facility] Work Phone: Cholesterol [Mass/vo lume] in Serum or Plasma [facility] Work Phone: Cholesterol in HDL [ Mass/volume] in Serum or Plasma [facility] Work Phone: Comprehensive metabo lic 2000 panel - Serum or Plasma [facility] Lipoprotein.beta.sub particle.smal l [Moles/volume] in Serum or Plasma [facility] Work Phone: Low density lipoprot ein cholesterol measurement [facility] Work Phone: Organ or system related test [facility] Work Phone: Triglyceride [Mass/v olume] in Serum or Plasma [facility] Work Phone: [facility] Immunizations Immunization Date Immunization Notes Care Provider Aleyda collazo 05-15-2016 influenza, seasonal, injectable DO Margarette Duarte Work Phone: [facility] 05-15-2016 influenza, seasonal, injectable, preservative free Margarette Duarte Other [facility] 04-07-2016 influenza, high dose seasonal, preservative-free DO Margarette Duarte Work Phone: [facility] 04-10-2015 influenza, seasonal, injectable, preservative free DO Margarette Duarte Work Phone: [facility] 04-07-2014 pneumococcal polysaccharide vaccine, 23 valent DO Margarette Duarte Work Phone: [facility] 04-07-2012 influenza, high dose seasonal, preservative-free Margarette Duarte Other [employer] Other 04-07-2012 influenza virus vaccine, unspecified formulation DO Margarette Duarte Work Phone: [facility] Payers Date Payer Category Payer Private Health Insurance [id number] 2023 Private Health Insurance [id number] 2023 Self-pay [id number] 2022 Medicare [id number] 1958 Medicare [id number] 1945 Unknown [id number] Medicare Medicare X [id number] Private Health Insurance [id number] [id number] Unknown [id number] Unknown [id number] Social History Date Type Detail Facility Unknown if ever smoked [employer] Other Sex Assigned At Sex Assigned At Bir th [employer] Other Start: 09-17-2017 End: 11-26-2023 Tobacco smoking status NHIS Never smoked tobacco (finding) [facility] Start: 1945 Sex Assigned At Female F [facility] Clinical Notes 04-07-2011 to 08-05-2023 Note Date & Type Note Facility 08-05-2023 Evaluation note Encounter Date Diagnosis Assessment Notes Aug, Asthma (ICD-10 - J45.909) [employer] Other 09-21-2023 History general Narrative - Reported* [...] removed 05-18-14 Surgical History [facility] stints - [facility] 03/04/15 Surgical History removed blockage in uterer - [facility] 06/26/15 Surgical History cystoscopy - Irina Stiff 09/21/17 Surgical History wisdom tooth removed 11/22/17 Surgical History heart [facility] 11/25/17 Surgical History colonoscopy - Dr Bland es / needs repeat in 5 years 07/2019 Hospitalization History see surgical history [employer] Other 04-26-2023 Evaluation note* Encounter Date Diagnosis Assessment Notes Treatment Notes Treatment Clinical Notes Oct, Hypertension (ICD-10 - I10) [employer] Other 04-26-2023 History general Narrative - Reported* [...] removed 05-18-14 [facility] Surgical History removed blockage in uterer [facility] 06/26/15 Surgical History cystoscopy - Ddr Stiff 09/21/17 Surgical History wisdom tooth removed 11/22/17 Surgical History heart [facility] 11/25/17 Surgical History colonoscopy - Dr Baldo sinclair / needs repeat in 5 years 07/2019 Hospitalization History see surgical history [employer] Other 03-21-2023 History general Narrative - Reported* Type Description Date Medical History 2008 Mammogram Medical History 2009 Colonoscopy Done Medical History 2005 Stress Test Medical History Dexa Scan 12-10 Repeat in 06-15 Medical History Flu Shot 04-07-11 Medical History Colonoscopy 2010 Dr. Clayton (2 polyps) repeat in 1 year Medical History [facility] Medical History DEXA 11-25-15 repeat in 2 [...] polyp removed 05-18-14 [facility] Surgical History removed blockage in uterer [facility] 06/26/15 Surgical History cystoscopy - Ddr Stiff 09/21/17 Surgical History wisdom tooth removed 11/22/17 Surgical History heart [facility] 11/25/17 Surgical History colonoscopy - Dr Baldo sinclair / needs repeat in 5 years 07/2019 Hospitalization History see surgical [email or web address] Other 03-15-2023 Evaluation note* Encounter Date Diagnosis [...] a mammogram. 10:46 AM - 11:00 AM [employer] Other 03-09-2023 Evaluation note* Encounter Date Diagnosis Assessment Notes Treatment Notes Treatment Clinical Notes Sep, Immunity status testing (ICD-10 - Z01.84) [employer] Other 09-13-2022 Evaluation note* Encounter Date Diagnosis [...] Mar, Other 9:25 AM - 9:44 AM [employer] Other 07-29-2022 History general Narrative - Reported* [...] removed 05-18-14 Surgical History [facility] stints - [facility] 03/04/15 Surgical History removed blockage in uterer - [facility] 06/26/15 Surgical History cystoscopy - Ddr Stiff 09/21/17 Surgical History wisdom tooth removed 11/22/17 Surgical History heart [facility] 11/25/17 Surgical History colonoscopy - Dr Bland es / needs repeat in 5 years 07/2019 Hospitalization History see surgical history [employer] Other 02-15-2022 Evaluation note* Encounter Date Diagnosis Assessment Notes Treatment Notes Treatment Clinical Notes Aug, Close exposure to COVID-19 virus (ICD-10 - Z20.828) [employer] Other 01-11-2022 Evaluation note* Encounter Date Diagnosis Assessment Notes Treatment Notes Treatment Clinical Notes Jul, Asthma (ICD-10 - J45.909) [employer] Other 01-05-2022 Evaluation note* Encounter Date Diagnosis Assessment Notes Treatment Notes Treatment Clinical Notes Jul, Immunity status testing (ICD-10 - Z01.84) [employer] Other 11-15-2021 Evaluation note* Encounter Date Diagnosis Assessment Notes Treatment Notes Treatment Clinical Notes May, Allergic rhinitis (ICD-10 - J30.9) [employer] Other 10-04-2011 History general Narrative - Reported* Type Description Date Medical History 2009 Mammogram Medical History 2009 Colonoscopy Done Medical History 2005 Stress Test Medical History Dexa Scan 12-10 Repeat in 06-15 Medical History Flu Shot 04-07-11 Medical History Colonoscopy 2010 Dr. Clayton (2 polyps) repeat in 1 year Medical History [facility] Medical History DEXA 11-25-15 repeat in 2 [...] History removed blockage in uterer - Cl [facility] 06/26/15 Surgical History cystoscopy - Ddr Stiff 09/21/17 Surgical History wisdom tooth removed 11/22/17 Surgical History heart [facility] 11/25/17 Surgical History colonoscopy - Dr Bland es / needs repeat in 5 years 07/2019 Hospitalization History see surgical history [employer] Other Evaluation noteNo InformationN[employer] Other Evaluation noteNort [employer] Other Evaluation noteNo assessment information available [facility] Work Phone: Evaluation note* Diagnosis Onset Date Resolution Status HTN (hypertension) acute Hyperglycemia acute Hyperlipidemia acute Hypothyroidism acute [facility] Work Phone: Evaluation note* Diagnosis Onset Date Resolution Status Sprain of left foot acute [facility] Work Phone: History general [facility] - [facility] [employer] Other Summary Purpose Family History No Family [...] section and content) DATE CREATED AUTHOR 12/22/2017 [facility] DATE CREATED AUTHOR AUTHOR'S ORGANIZ ATION 12/22/2017 [facility] DATE CREATED AUTHOR AUTHOR'S ORGANIZ ATION [facility] DATE CREATED AUTHOR AUTHOR'S ORGANIZ ATION 08/23/2021 [facility] DATE CREATED AUTHOR AUTHOR'S ORGANIZ ATION 03/24/2024 [facility] REASON FOR VISIT (unrecogniz ed [...] Team Status: Inactive Member Role Status Kelly Daurte DO Primary Care Provide r, Attending Provider [...] BE BASED ON THE PRIMARY CLINICAL RECORDS. [facility] [facility]. provides no warranty or guarantee of the accuracy or completeness of information in this document.
[2024-03-28] MEDS: LEVOTHYROXINE SODIUM 112 MCG TABLET PO (06:29)
[2024-03-28] MEDS: ASPIRIN 81 MG TAB.CHEW PO (08:15)
[2024-03-28] MEDS: LOSARTAN POTASSIUM 50 MG TABLET 100 MG PO (08:15)
--- NOTE | 2024-03-28 10:17 | CM.NOTE ---
Rounds made with Dr. Ayala. Plan for discharge today after TeleNeuro visit. Follow up with TeleNeuro outpatient. Ms. Landon verbalizes understanding.
--- NOTE | 2024-03-28 10:58 | P.DS_ITS ---
DS: Providers Provider Date of admission: 03/27/24 10:37 Primary care physician: MARGARETTE DUARTE Admitting clinician: Shaikh Lucy Attending physician on admission: Shaikh Lucy Consults: 03/27/24 08:45 Consult to Telestroke Routine Reason for consultation: TIA symptoms Has provider been notified: Yes 03/27/24 11:20 Physical Therapy Eval and Treat Routine Reason for consultation: Ambulatory dysfunction/weakness Attending physician on discharge: Shaikh Lucy Discharging clinician: Shaikh Lucy Anticipated date of discharge: 03/28/24 DS: Diagnosis Discharge Diagnosis (1) Hypertensive emergency: Assessment and plan: BP improved. Will d/c on losartan-hctz (100/12.5) She was previously on 50 mg. Needs outpatient f/u with PCP and BMP within one week (2) Acute ischemic stroke: Assessment and plan: No evidence of acute ischemic stroke on MRI. 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 Will need outpatient f/u with Neurology and EEG. (3) HLD (hyperlipidemia): Assessment and plan: HLD, LDL > 240. Started on Lipitor. Needs Lipid panel in 4-6 weeks Qualifiers: Hyperlipidemia type: familial hypercholesterolemia Qualified Code(s): E78.01 - Familial hypercholesterolemia (4) Hypothyroid: Assessment and plan: TSH above goal, dose increased to 112. Repeat TSH in 4-6 weeks Qualifiers: Hypothyroidism type: unspecified Qualified Code(s): E03.9 - Hypothyroidism, unspecified DS: Summary Hospital Course Hospital Course: 78-year-old female presented to ER with left facial numbness, dysarthria and left upper extremity and lower extremity numbness that lasted for about a minute or 2 and resolved quickly after. She had similar symptoms past Wednesday that resolved within 5 minutes or so. Upon arrival to ED, her BP was poorly controlled but improved with IV hydralazine. Given her neurological deficit/symptoms, she was admitted for observation for TIA/stroke work up. No acute finding noted on CTH/CTA head/neck. No abnormal event on tele. ECHO did not show any sig cardiac structural abnormality. Patient seen by Tele stroke who reviewed her clinical hx, symptoms and think that her symptoms are possibly due to Seizures. MRI brain was performed that did not show any acute stroke but de monstrated old basal ganglia stroke. During evaluation, patient was found to have HLD, undertreated hypothyroidism. She was started on ASA, lipitor and her ,levothyroxine was increased to 112 mcg. She will need repeat TSH/Lipid panel in 6 weeks. For her BP, she will be discharge on Losartan-hctz (100/12.5) and will need BMP in one week before seeing her PCP. Patient will benefit from seeing Neurology as outpatient for an EEG and to further ascertain the underlying etiology of her transient neurological symptoms. She is medically stable for discharge. Educated on worrisome signs and symptoms that should prompt her to seek Urgent medical care. Status at Discharge Functional status at discharge: independent ambulation Overall status at discharge: patient is back to baseline Time Spent with Patient Time attestation: Total time spent providing and/or coordinating discharge services: Time spent: greater than 30 minutes Quality: Stroke Onset of Symptoms Date: 03/27/24 Onset of Symptoms Time: 07:30 Symptom Onset Unknown: No Exam Constitutional Vital Signs, click to edit/add: Last Vital Signs Temp 98.2 F 03/28/24 08:18 Pulse 97 H 03/28/24 10:00 Resp 18 03/28/24 08:18 BP 146/73 H 03/28/24 08:18 Pulse Ox 93 L 03/28/24 08:18 O2 Del Method Room Air 03/28/24 08:18 Documenting provider has reviewed patient's vital signs: yes Common normals: no apparent distress and oriented x3 General appearance: cooperative Respiratory Common normals: normal respiratory effort and clear to auscultation bilaterally Effort & inspection: able to speak in complete sentences Auscultation: clear to auscultation bilaterally Cardio Common normals: regular rate, S1 normal heart sound and S2 normal heart sound Rate: regular rate Heart sounds: S1 normal and S2 normal Extremity Common normals: no clubbing, cyanosis or edema Neuro Common normals: oriented x3, moves all extremities and no focal motor deficits Psych Common normals: mental status grossly normal, denies hallucinations, denies homicidal ideation and denies suicidal ideation DS: Data Data Completed and Pending Labs on day of discharge: Labs from last 24 hours 03/27/24 03/27/24 13:15 08:12 Estimat Average Glucose 111 Hemoglobin A1c 5.5 Triglycerides 121 Cholesterol 349 H LDL Cholesterol, Calc 245.0 VLDL Cholesterol 24.2 HDL Cholesterol 80 H Cholesterol/HDL Ratio 4.4 TSH 15.639 H Urine Opiates Screen Negative Ur Buprenorphine Scrn Negative Ur Oxycodone Screen Negative Urine Methadone Screen Negative Ur Barbiturates Screen Negative U Tricyclic Antidepress Negative Ur Phencyclidine Scrn Negative Ur Amphetamines Screen Negative U Methamphetamines Scrn Negative U Benzodiazepines Scrn Negative Urine Cocaine Screen Negative U Cannabinoids Screen Positive A Discharge Plan Discharge Disposition: Home, Self-Care Discharge Medications: New aspirin 81 mg tablet,chewable 81 mg PO DAILY Qty: 30 0RF atorvastatin [Lipitor] 40 mg tablet 40 mg PO DAILY Qty: 30 0RF losartan-hydrochlorothiazide 100-12.5 mg tablet 1 tab PO DAILY Qty: 30 0RF levothyroxine 112 mcg tablet 112 mcg PO DAILY Qty: 30 0RF Continued triamcinolone acetonide 0.1 % cream 1 applic TOPICAL BID Discontinued levothyroxine 88 mcg tablet 88 mcg PO DAILY losartan 50 mg tablet 50 mg PO DAILY meloxicam 7.5 mg tablet 7.5 mg PO DAILY Activity: increase activity as tolerated Diet: advance to your usual diet Print Language: Vietnamese Forms: Portal Instructions Follow Up Appointments: F/u with PCP in one week F/u with Neurology in 2 weeks
--- NOTE | 2024-03-29 11:57 | CM.DCFOLLOWU ---
Person spoke with:patient How are you feeling? well How is your pain? no pain, taking it easy today Did you understand your discharge instructions? yes Do you have any questions about your discharge instructions? no Were you given any prescriptions at discharge? yes Were you able to get your prescriptions filled?yes Do you understand how to take your medications as ordered? yes Do you have any questions about your follow up appointment and do you plan to keep your follow up appointment? no questions. Dr. Hurt's office has not called yet, reminded pt to call them if she does not receive call by Wednesday. Reviewed follow up date and time with neurology Is there anything else that you would like to discuss?no Questions/Comments/Concerns/Other:none
== END 2024-03-28 12:09 | disposition home or self-care (01) ==
LOC: ER 09:08 → MS 03-28 06:00
PROVIDERS: Admitting Provider Internal Medicine; Emergency Provider Emergency Medicine; PCP Family Medicine; Visit Provider Internal Medicine
DX: I16.1 Hypertensive emergency (principal); E78.01 Familial hypercholesterolemia; E03.9 Hypothyroidism, unspecified; Z79.890 Hormone replacement therapy; R20.0 Anesthesia of skin; R47.1 Dysarthria and anarthria; F12.90 Cannabis use, unspecified, uncomplicated; Z79.899 Other long term (current) drug therapy
CPT/HCPCS: 36415; 70450; 70496; 70498; 70551; 70552; 71045; 80053; 80061; 80307; 83036; 83735; 84443; 84484; 85025; 85610; 93005; 93306; 96374; 96375; 96376; 99285; A9575; G0378; J0360; J2060; J2405; Q3014; Q9967